=== PATIENT | male | born 1945 | race Caucasian/White ===

== ENCOUNTER 2018-06-26 09:33 | Emergency (ER) | payer MEDICARE ==
[~2018-06-26] VITALS: Ht 180.3 cm; Wt 65.8 kg
[~2018-06-26 09:33] MED LIST: CIPRO500 MG PO; EYE DROPS15 M1; NORCO 7.5-3251 EACH PO
[2018-06-26] MEDS ORDERED: LIDOCAINE JELLY 2% 10ML URO-JET ONE (10:45)
[2018-06-26] MEDS ORDERED: LIDOCAINE JELLY 2% 10ML URO-JET TOP ONE (11:00)
--- NOTE | 2018-06-26 11:02 | NUR ---
Verbal report given to Frannie, 11 to 11 nurse.
[2018-06-26 11:18] LABS: BILIRUBIN,URINE NEGATIVE (NEGATIVE); CLARITY,URINE CLEAR (CLEAR); COLOR,URINE YELLOW (YELLOW); KETONES,URINE NEGATIVE (NEGATIVE); LEUKOCYTE ESTERASE ,URINE NEGATIVE (NEGATIVE); NITRITE,URINE NEGATIVE (NEGATIVE); PROTEIN,URINE DIPSTICK NEGATIVE (NEGATIVE); URINE UROBILINOGEN 0.2 mg/dL (0.2 - 1)
[2018-06-26] MEDS ORDERED: SODIUM CHLORIDE 0.9% 1000ML 1,000 ML ONE (11:24)
--- NOTE | 2018-06-26 11:25 | NUR ---
WARD CLAMPED AT THIS TIME-800CC OF URINE OUT
[2018-06-26] MEDS ORDERED: SODIUM CHLORIDE 0.9% 1000ML 1,000 ML IV SCH (11:30)
[2018-06-26 11:35] LABS: BACTERIA,URINE FEW /HPF; EPITHELIAL CELLS,URINE RARE /LPF; RBC,URINE >50 /HPF (0-5)
[2018-06-26] MEDS ORDERED: CEFTRIAXONE SOD 1 GM/NS 50 ML 50 ML IV ONE (12:15)
== END 2018-06-26 13:54 | disposition home or self-care (01) ==
LOC: ER 09:33
DX: N30.91 Cystitis, unspecified with hematuria (principal); N13.9 Obstructive and reflux uropathy, unspecified; I48.91 Unspecified atrial fibrillation
CPT/HCPCS: 51700; 81001; 87086; 99284; J0696; J7030

== ENCOUNTER 2018-07-25 03:01 | Inpatient (IN) | payer MEDICARE ==
[2018-07-25] VITALS (8 sets, daily range): BP systolic 82–124; BP diastolic 50–57
[~2018-07-25] VITALS: Ht 170.2 cm; Wt 57.3 kg
[2018-07-25] MEDS ORDERED: SODIUM CHLORIDE 0.9% 1000ML 1,000 ML IV STA (03:03)
[2018-07-25] MEDS ORDERED: ACETAMINOPHEN 1000 MG/100 ML IV STA (03:10)
[2018-07-25] MEDS ORDERED: SODIUM CHLORIDE 0.9% 1000ML 1,000 ML IV ONE (03:15)
[2018-07-25] MEDS ORDERED: ACETAMINOPHEN 325 MG TAB PO ONE (03:15)
[2018-07-25] MEDS ORDERED: ALBUTEROL/IPRATROPIUM 3 ML NEB NEB ONE (03:15)
[2018-07-25] MEDS ORDERED: CEFTRIAXONE SOD 1 GM/NS 50 ML 50 ML IV ONE (03:15)
[2018-07-25] MEDS ORDERED: MEROPENEM 1GM 100 ML IV STA (03:20)
--- NOTE | 2018-07-25 03:21 | NUR ---
RAD AT BS FOR CHEST XRAY PER MD ORDERS
[2018-07-25 03:24] LABS: BASOPHILS # (AUTO) 0.1 (0.0-0.1); BASOPHILS % 0.3 % (0.0-1.0); EOSINOPHILS # (AUTO) 0.1 (0.0-0.4); EOSINOPHILS % 0.3 % (0.0-6.0); HEMATOCRIT 35.1 % (38.2-49.6); LYMPHOCYTES # (AUTO) 0.8 (1.0-3.2); MEAN CORPUSCULAR HEMOGLOBIN 32.7 pg (28-32); MEAN CORPUSCULAR HGB CONC 34.2 g/dL (31-35); MEAN CORPUSCULAR VOLUME 95.6 fL (81-99); MONOCYTES # (AUTO) 1.2 (0.2-0.8); MONOCYTES % 6.3 % (4.4-11.3); NEUTROPHILS # (AUTO) 16.9 (2.1-6.9); NEUTROPHILS % 88.7 % (38.7-80.0); PLATELET COUNT 162 x10e3/uL (140-360); RED BLOOD COUNT 3.67 x10e6/uL (4.3-5.7); RED CELL DISTRIBUTION WIDTH 13.2 % (11.7-14.4)
[2018-07-25] MEDS ORDERED: MEROPENEM 1GM 100 ML IV ONE (03:25)
[2018-07-25 03:37] LABS: INR 1.01; PARTIAL THROMBOPLASTIN TIME 31.8 seconds (23.8-35.5); PROTHROMBIN TIME 13.8 seconds (11.9-14.5)
[2018-07-25 03:44] LABS: ALANINE AMINOTRANSFERASE 10 IU/L (0-55); ALBUMIN 2.6 g/dL (3.5-5.0); ALBUMIN/GLOBULIN RATIO 0.7 (0.8-2.0); ANION GAP 9.8 mmol/L (8-16); BLOOD UREA NITROGEN 13 mg/dL (7-26); BUN/CREATININE RATIO 15 (6-25); CALCIUM 8.7 mg/dL (8.4-10.2); CARBON DIOXIDE 26 mmol/L (22-29); CHLORIDE 104 mmol/L (98-107); CREATINE KINASE 39 IU/L (30-200); CREATININE, SERUM 0.84 mg/dL (0.72-1.25); EST GLOMERULAR FILTRATION RATE > 60 ML/MIN (60-); GLUCOSE 103 mg/dL (74-118); POTASSIUM 3.8 mmol/L (3.5-5.1); SODIUM 136 mmol/L (136-145)
--- NOTE | 2018-07-25 03:46 | Diagnostic Imaging Report ---
Examination: Single AP view of the chest. COMPARISON: 11/13/13 INDICATION: cough DISCUSSION: Lines/tubes: None. Lungs: The lungs are well inflated and clear. No pneumonia or pulmonary edema. Pleura: No pleural effusion or pneumothorax. Heart and mediastinum: The heart and the mediastinum are unremarkable. Bones and soft tissues: No acute bony abnormalities. IMPRESSION: 1. No acute cardiopulmonary abnormalities. Signed by: Dr. Jayesh Jane M.D. on 07/25/2018 3:43 AM
[2018-07-25 03:53] LABS: CLARITY,URINE CLOUDY (CLEAR); COLOR,URINE YELLOW (YELLOW)
[2018-07-25 03:54] LABS: BILIRUBIN,URINE NEGATIVE (NEGATIVE); KETONES,URINE NEGATIVE (NEGATIVE); LEUKOCYTE ESTERASE ,URINE 2+ (NEGATIVE); NITRITE,URINE POSITIVE (NEGATIVE); PROTEIN,URINE DIPSTICK 1+ (NEGATIVE); URINE UROBILINOGEN 0.2 mg/dL (0.2 - 1)
[2018-07-25 04:00] LABS: ALKALINE PHOSPHATASE 85 IU/L (40-150)
[2018-07-25 04:02] LABS: BACTERIA,URINE MANY /HPF; EPITHELIAL CELLS,URINE FEW /LPF; WBC,URINE (MAN) >50 /HPF (0-5)
[2018-07-25] MEDS: OSELTAMIVIR PHOSPHATE 75 MG CAP PO SCH ×3 (04:11→16:48)
[2018-07-25] MEDS: SODIUM CHLORIDE 0.9% 1000ML 1,000 ML IV SCH ×4 (04:11→22:20)
[2018-07-25] MEDS ORDERED: FLOMAX0.4 MG PO (04:12)
--- OUTSIDE RECORDS SUMMARY | 2018-07-25 04:29 | XMS REPORT ---
Author Author [facility] Address Unknown Phone Unavailable Care Team Providers Care Geospatial Developer Name Role Phone Irma JIMENEZ Unavailable Unavailable Problems This patient has no known problems. Allergies, Adverse Reactions, Alerts This patient has no known allergies or adverse reactions. Medications This patient has no known medications. Results Test Description Test Time Test Comments Text Results Atomic Results Result Comments CHEST SINGLE (PORTABLE) 2018-07-25 03:36:00 [place] [address] Patient Name: PEPITO LEIGH MR #: [id number] : 1945 Age/Sex: 72/M Req #: [id number] Adm Physician: Ordered by: NATHAN JIMENEZ MD Report #: [id number] Location: ER Room/Bed: Procedure: [id number] DX/CHEST SINGLE (PORTABLE) Exam Date: 07/25/18 Exam Time: 0315 REPORT STATUS: Signed Examination: Single AP view of the chest. COMPARISON: 11/13/13 INDICATION: cough DISCUSSION: Lines/tubes: None. Lungs: The lungs are well inflated and clear. No pneumonia or pulmonary edema. Pleura: No pleural effusion or pneumothorax. Heart and mediastinum: The heart and the mediastinum are unremarkable. Bones and soft tissues: No acute bony abnormalities. IMPRESSION: 1. No acute cardiopulmonary abnormalities. Signed by: Dr. Marcia Yates M.D. on 07/25/2018 3:43 AM Dictated By: MARCIA YATES MD 2 Transcribed By: DEE on 07/25/18342 COPY TO: NATHAN JIMENEZ MD
[2018-07-25] MEDS ORDERED: ONDANSETRON HCL INJ 2MG/ML 2ML 2 MG/ML VIAL IV PRN (04:30)
[2018-07-25] MEDS ORDERED: ACETAMINOPHEN 325 MG TAB PO PRN (04:30)
--- NOTE | 2018-07-25 05:49 | NUR ---
received pt from ER to room 204, AAOx3, no resp distress, no complaints of pain or discomfort, on O2 at 2L, on droplet precautions for Flu B, 18F mai in place draining dark yellow clear urine, able to verbalize needs, bed in lowest and locked position with call light in reach, family at bedside
[2018-07-25] MEDS: MEROPENEM 500MG 500 MG in SODIUM CHLORIDE 0.9% 50ML 50 ML IV SCH ×2 (06:00→13:46)
[2018-07-25] MEDS: ALBUTEROL/IPRATROPIUM 3 ML NEB NEB SCH ×3 (07:00→19:42)
[2018-07-25] MEDS ORDERED: ALBUTEROL/IPRATROPIUM 3 ML NEB NEB SCH (07:00)
[2018-07-25] MEDS: TAMSULOSIN HCL 0.4 MG CAP PO SCH (08:52)
[2018-07-25] MEDS ORDERED: MEROPENEM 500MG/ NS 50ML 50 ML IV SCH (14:00)
--- NOTE | 2018-07-25 19:00 | NUR ---
Patient visited in room during nursing rounds. Patient alert and oriented x3. No distress or discomfort noted. Pt positive for flu and is on droplet isolation at this time. Patient ambulatory in room prn. Receiving IVF (NS @ 150 ml/hr). Forman in place draining dark and clear yellow urine. Call buitrago within reach. Will monitor closely.
[2018-07-25] MEDS: MEROPENEM 500MG/ NS 50ML 50 ML IV SCH (22:20)
[2018-07-26] VITALS (9 sets, daily range): BP systolic 99–111; BP diastolic 52–60
[2018-07-26] MEDS: ALBUTEROL/IPRATROPIUM 3 ML NEB NEB SCH ×3 (01:02→13:00)
--- NOTE | 2018-07-26 04:26 | NUR ---
Dr. Harris came and visited pt in room during rounds. MD aware of patient condition. No new orders given.
[2018-07-26] MEDS: SODIUM CHLORIDE 0.9% 1000ML 1,000 ML IV SCH ×3 (05:37→21:02)
[2018-07-26] MEDS: MEROPENEM 500MG/ NS 50ML 50 ML IV SCH ×3 (05:37→22:00)
--- NOTE | 2018-07-26 06:35 | NUR ---
Patient resting in bed. Pt in stable condition. Will hand off to dayshift RN pt care.
[2018-07-26 06:53] LABS: BASOPHILS # (AUTO) 0.1 (0.0-0.1); BASOPHILS % 0.5 % (0.0-1.0); EOSINOPHILS # (AUTO) 0.1 (0.0-0.4); EOSINOPHILS % 0.3 % (0.0-6.0); HEMATOCRIT 29.6 % (38.2-49.6); HEMOGLOBIN 9.8 g/dL (14.0-18.0); LYMPHOCYTES # (AUTO) 1.4 (1.0-3.2); LYMPHOCYTES % 9.9 % (18.0-39.1); MEAN CORPUSCULAR HEMOGLOBIN 32.6 pg (28-32); MEAN CORPUSCULAR HGB CONC 33.1 g/dL (31-35); MEAN CORPUSCULAR VOLUME 98.3 fL (81-99); MONOCYTES # (AUTO) 1.9 (0.2-0.8); MONOCYTES % 13.4 % (4.4-11.3); NEUTROPHILS # (AUTO) 10.8 (2.1-6.9); NEUTROPHILS % 75.3 % (38.7-80.0); PLATELET COUNT 135 x10e3/uL (140-360); RED BLOOD COUNT 3.01 x10e6/uL (4.3-5.7); RED CELL DISTRIBUTION WIDTH 13.6 % (11.7-14.4)
[2018-07-26 07:21] LABS: ALANINE AMINOTRANSFERASE 10 IU/L (0-55); ALBUMIN/GLOBULIN RATIO 0.7 (0.8-2.0); ALKALINE PHOSPHATASE 72 IU/L (40-150); BLOOD UREA NITROGEN 10 mg/dL (7-26); BUN/CREATININE RATIO 13 (6-25); CARBON DIOXIDE 23 mmol/L (22-29); CHLORIDE 111 mmol/L (98-107); EST GLOMERULAR FILTRATION RATE > 60 ML/MIN (60-); GLUCOSE 81 mg/dL (74-118); SODIUM 139 mmol/L (136-145)
[2018-07-26] MEDS: OSELTAMIVIR PHOSPHATE 75 MG CAP PO SCH ×2 (08:47→17:06)
[2018-07-26] MEDS: TAMSULOSIN HCL 0.4 MG CAP PO SCH (08:47)
[2018-07-26] MEDS ORDERED: ONDANSETRON HCL 4 MG ORAL DISINTEGRATING TAB PO PRN (10:00)
[2018-07-26 14:03] LABS: PLATELET ESTIMATE SLIGHTLY DECREASED; PLATELET MORPHOLOGY COMMENT FEW LARGE; RBC MORPHOLOGY COMMENT NORMAL
[2018-07-26 14:04] LABS: ANISOCYTOSIS SLIGHT; HYPOCHROMASIA SLIGHT
--- NOTE | 2018-07-26 16:48 | NUR ---
IMM SIGNED BY PT, EXPLAINED TO PT AND PLACED IN CHART COPY TO PT IN CARE TRANSITIONS FOLDER
--- NOTE | 2018-07-26 19:24 | NUR ---
Patient received lying in bed. AAO x 3. Patient had no complaints of pain. Respirations even and non-labored. 2L NC in place. Forman catheter draining clear pale yellow urine. Fall precautions implemented. Patient instructed to call for assistance when needed. Call light within reach.
--- NOTE | 2018-07-26 23:43 | NUR ---
Patient complained of being unable to sleep. Dr. Harris notified. New order received.
[2018-07-27] MEDS: ALBUTEROL/IPRATROPIUM 3 ML NEB NEB SCH ×4 (00:45→19:39)
[2018-07-27] MEDS: SODIUM CHLORIDE 0.9% 1000ML 1,000 ML IV SCH (02:25)
[2018-07-27] MEDS: MEROPENEM 500MG/ NS 50ML 50 ML IV SCH ×3 (05:42→21:19)
[2018-07-27 06:00] VITALS: BP 124/66
--- NOTE | 2018-07-27 06:55 | NUR ---
Walking rounds done. Shift report given to oncoming nurse.
[2018-07-27 07:58] VITALS: BP 127/71
--- NOTE | 2018-07-27 08:16 | NUR ---
Patient complaining of shortness of breath. Decreased rate of fluids. Post breathing treatment. Heart rate in the 120's. O2 saturation is 95%. Calling Dr. Lopez for orders. Orders received and implemented.
--- NOTE | 2018-07-27 08:56 | Progress Note ---
DATE: SUBJECTIVE: The patient is here for type B influenza, sepsis. The patient is currently still short of breath, is on 2 L of oxygen and still short of breath on ambulation. The patient has been running low-grade temperature throughout the stay in the hospital. OBJECTIVE: VITAL SIGNS: Temperature is 98.8, blood pressure is 124/66, pulse of 89, pulse oximetry of 95% on 2 L of oxygen. The patient's T-max is 99.3. HEENT: Normocephalic, atraumatic. Pupils are reactive to light and accommodation. CVS: S1, S2. Regular rate and rhythm. LUNGS: Positive for rhonchi bilaterally. ABDOMEN: Nontender, nondistended. EXTREMITIES: No clubbing, no cyanosis, no edema. LABORATORY VALUES: Yesterday's sodium was 139, BUN 10, creatinine 0.80. Hematology; white count is down yesterday to 14,000 from 19,000, hemoglobin of 9.8 and hematocrit 29.6. Coags were normal. Urine was showing positive nitrites and urine leukocyte esterase. Serology, positive for flu. MICROBIOLOGY: Enterococcus identified and susceptibility to follow. MEDICATIONS: The patient's medications include Merrem, sodium chloride. He is on Tamiflu twice a day, tamsulosin and zolpidem for sleep. ASSESSMENT: 1. Sepsis secondary to flu. 2. Urinary tract infection and urosepsis. 3. Hypertension. 4. BPH. 5. Acute renal failure. PLAN: The patient is progressing well. Continue to monitor the patient, asked to ambulate and DVT prophylaxis with SCDs. Further recommendation per clinical course. We will continue to monitor the patient. Albuterol and Atrovent for respiratory support has been given to the patient. The patient in addition has a diagnosis of COPD, which was present on admission. MD MATTY Correia/GREGORY /[id number]
[2018-07-27] MEDS ORDERED: FUROSEMIDE INJ 10 MG/ML 2 ML VIAL IV ONE (09:00)
[2018-07-27 09:24] VITALS: BP 127/71
[2018-07-27] MEDS: OSELTAMIVIR PHOSPHATE 75 MG CAP PO SCH ×2 (09:24→16:58)
[2018-07-27] MEDS: TAMSULOSIN HCL 0.4 MG CAP PO SCH (09:24)
[2018-07-27] MEDS: FAMOTIDINE 20 MG TAB PO SCH ×2 (09:24→16:58)
--- NOTE | 2018-07-27 09:45 | Diagnostic Imaging Report ---
EXAMINATION: CHEST SINGLE (PORTABLE) INDICATION: ^Increased SOB COMPARISON: Chest x-ray 07/25/2017. 11/13/2013. FINDINGS: AP view TUBES and LINES: None. LUNGS: Lungs are hyper inflated. Airspace opacities in both lung bases. There is perihilar interstitial opacities, consistent with interstitial edema. PLEURA: Tiny bilateral pleural effusions. HEART AND MEDIASTINUM: The cardiomediastinal silhouette is unremarkable. BONES AND SOFT TISSUES: No acute osseous lesion. Soft tissues are unremarkable. UPPER ABDOMEN: No free air under the diaphragm. IMPRESSION: Interstitial edema. Bibasilar airspace opacities, which may represent combination of edema and pneumonia. Signed by: Dr. Trever Plata M.D. on 07/27/2018 9:41 AM
--- NOTE | 2018-07-27 10:29 | NUR ---
D-Dimer at 3.56. Notified Dr. Lopez. CT chest with contrast ordered.
--- NOTE | 2018-07-27 11:31 | Diagnostic Imaging Report ---
EXAM: CT Chest WITH contrast (PE protocol) 07/27/2018 10:25 AM INDICATION: Fever. Elevated d-dimer. Shortness of breath. ^PE protocol COMPARISON: Chest x-ray 07/27/2018. 07/25/2018. TECHNIQUE: Chest was scanned utilizing a multidetector helical scanner from the lung apex through the level of the adrenal glands without administration of IV contrast. Coronal and sagittal reformations were obtained. PE protocol was performed. Sagittal and coronal thick MIP reconstruction images were performed by the technologist at the scanner workstation. IV CONTRAST: 100 mL of Isovue 370 COMPLICATIONS: None RADIATION DOSE: Total DLP: 431.41 mGy*cm Estimated effective dose: (DLP x 0.014 x size factor) mSv CTDIvol has been reviewed. It is below the limits set by the Radiation Protocol Committee (RPC). Dose modulation, iterative reconstruction, and/or weight based adjustment of the mA/kV was utilized to reduce the radiation dose to as low as reasonably achievable. FINDINGS: LINES/ TUBES: None. LUNGS AND AIRWAYS: Severe centrilobular and paraseptal emphysematous changes with apical predominance. Mild bilateral lower lobe atelectasis. Good contrast bolus timing. No pulmonary emboli. PLEURA: Small bilateral simple appearing pleural effusions, right greater than left. HEART AND MEDIASTINUM: The thyroid gland is normal. No mediastinal, hilar or axillary lymphadenopathy. The heart is normal in size. There is no pericardial effusion. Main pulmonary artery measures 2.8 cm. Ascending aorta measures 3.0 cm. UPPER ABDOMEN: Unremarkable. BONES: The visualized bony thorax is within normal limits. SOFT TISSUES: Unremarkable. IMPRESSION: 1. No pulmonary emboli. 2. Severe emphysema. 3. Small bilateral pleural effusions with associated atelectasis. Previous interstitial edema seen on chest x-ray has slightly improved. Signed by: Dr. Trever Plata M.D. on 07/27/2018 11:27 AM
[2018-07-27 11:57] VITALS: BP 122/57
--- NOTE | 2018-07-27 15:21 | NUR ---
SW met with patient regarding MD consult for SNF / LTAC. Patient was not aware of MD recommendations and would like to speak with doctor about aftercare options with his son present. SW continued to explain why it was recommended and provided him with a list of choices and ALOC to select if he agrees to MD recommendation. Patient will decide after MD discuss current condition and treatment needs with him. Patient resides at home with his son who is his main support system. Patient states he was independent of all ADL prior to hospital admission. Patient did not require assistance in his care or mobility.Patient's PCP is MD Harris. Patient is currently taking medication that will end within 30 otherwise he does not take medication. CM to follow up patient's aftercare decision.
[2018-07-27 15:24] LABS: CREATINE KINASE MB 1.2 ng/mL (0-5.0)
[2018-07-27 16:34] VITALS: BP 102/58
[2018-07-27] MEDS ORDERED: IOPAMIDOL 370 MG/ML 200 ML INFUS..BTL INJ ONE (18:12)
[2018-07-27] MEDS ORDERED: SODIUM CHLORIDE 0.9% 50ML 50 ML ONE (18:12)
[2018-07-27 20:00] VITALS: BP 102/66
[2018-07-27] MEDS: ZOLPIDEM TARTRATE 5 MG TAB PO PRN (21:43)
[2018-07-27 23:13] LABS: CREATINE KINASE MB 1.2 ng/mL (0-5.0)
[2018-07-28] VITALS (8 sets, daily range): BP systolic 103–134; BP diastolic 55–84
[2018-07-28] MEDS: ALBUTEROL/IPRATROPIUM 3 ML NEB NEB SCH ×4 (00:45→19:22)
[2018-07-28 04:56] LABS: BASOPHILS # (AUTO) 0.1 (0.0-0.1); BASOPHILS % 0.5 % (0.0-1.0); EOSINOPHILS # (AUTO) 0.3 (0.0-0.4); EOSINOPHILS % 2.5 % (0.0-6.0); HEMATOCRIT 31.9 % (38.2-49.6); HEMOGLOBIN 10.7 g/dL (14.0-18.0); LYMPHOCYTES # (AUTO) 1.4 (1.0-3.2); LYMPHOCYTES % 13.2 % (18.0-39.1); MEAN CORPUSCULAR HEMOGLOBIN 31.8 pg (28-32); MEAN CORPUSCULAR HGB CONC 33.5 g/dL (31-35); MEAN CORPUSCULAR VOLUME 94.7 fL (81-99); MONOCYTES # (AUTO) 1.6 (0.2-0.8); MONOCYTES % 14.9 % (4.4-11.3); NEUTROPHILS # (AUTO) 7.5 (2.1-6.9); NEUTROPHILS % 68.3 % (38.7-80.0); PLATELET COUNT 141 x10e3/uL (140-360); RED BLOOD COUNT 3.37 x10e6/uL (4.3-5.7)
[2018-07-28 05:14] LABS: ANION GAP 9.2 mmol/L (8-16); BLOOD UREA NITROGEN 5 mg/dL (7-26); BUN/CREATININE RATIO 7 (6-25); CALCIUM 8.4 mg/dL (8.4-10.2); CARBON DIOXIDE 29 mmol/L (22-29); CHLORIDE 106 mmol/L (98-107); CREATININE, SERUM 0.73 mg/dL (0.72-1.25); EST GLOMERULAR FILTRATION RATE > 60 ML/MIN (60-); GLUCOSE 97 mg/dL (74-118); POTASSIUM 3.2 mmol/L (3.5-5.1); SODIUM 141 mmol/L (136-145)
[2018-07-28] MEDS: MEROPENEM 500MG/ NS 50ML 50 ML IV SCH ×3 (05:31→21:56)
[2018-07-28 05:34] LABS: CREATINE KINASE 83 IU/L (30-200)
--- NOTE | 2018-07-28 06:55 | NUR ---
report given to day nurse. patient is resting comfortably in bed. bed is in lowest position and call buitrago is within reach.
[2018-07-28] MEDS: OSELTAMIVIR PHOSPHATE 75 MG CAP PO SCH ×2 (08:56→17:25)
[2018-07-28] MEDS: FAMOTIDINE 20 MG TAB PO SCH ×2 (08:56→17:25)
[2018-07-28] MEDS: TAMSULOSIN HCL 0.4 MG CAP PO SCH (08:56)
[2018-07-28] MEDS ORDERED: POTASSIUM CHLORIDE 20 MEQ TAB CR PO ONE (09:00)
--- NOTE | 2018-07-28 11:37 | Progress Note ---
DATE: 07/28/2018 SUBJECTIVE: The patient is here for viral pneumonia. The patient yesterday had an episode of acute shortness of breath. A D-dimer was done. Troponins were done. The patient was given Lasix and also diuresed. The patient also had a CT scan, which was documented as negative for pulmonary embolism. The patient is currently on Merrem, on tamsulosin, and also on Tamiflu. The patient's microbiology did grow out ESBL. OBJECTIVE: VITAL SIGNS: Temperature is 97.0, pulse of 77, respirations of 18, blood pressure is 104/64, pulse oximetry of 100% on room air. HEENT: Normocephalic, atraumatic. Pupils are reactive to light and accommodation. LUNGS: Positive for rhonchi bilaterally. ABDOMEN: Nontender, nondistended. EXTREMITIES: No clubbing, no cyanosis, no edema. The patient has an SCD at this time. LABORATORY VALUES: White count is 10.90 down from 14, hemoglobin of 10.7, hematocrit of 31.9. Chemistry; sodium of 141, potassium of 3.2, BUN of 5, creatinine of 0.73 with EGFR above 70. Coags are normal. Urine has been positive. Microbiology grew out ESBL positive and sensitive to Merrem. Blood cultures so far negative. IMAGING STUDIES: Last CT done yesterday shows no pulmonary emboli, severe emphysema, small bilateral pleural effusion associated with atelectasis, previous interstitial edema has improved. ASSESSMENT: 1. Pneumonia secondary to influenza. 2. Extended-spectrum beta-lactamase. 3. Chronic obstructive pulmonary disease. 4. Chronic obstructive pulmonary disease exacerbation. 5. Malnutrition. 6. Benign prostatic hypertrophy. PLAN: Plan is to continue on Merrem at this time. The patient will continue on Tamiflu at this time too. Continue with O2 supplementation. The patient is debilitated and will need physical therapy to evaluate for possible SNF and/or LTAC placement. We will continue the Merrem at this time. Further recommendation and clinical course, we will continue to monitor the patient and a PT consult will be added to the patient. MD MATTY Correia/YULISAL /[id number]
--- NOTE | 2018-07-28 21:20 | NUR ---
Patient received lying in bed. AAO x 4. Patient had no complaints of pain. Respirations even and non-labored. 2L NC in place. Forman catheter draining pale yellow urine. . Call light within reach.
[2018-07-28] MEDS: ZOLPIDEM TARTRATE 5 MG TAB PO PRN (21:56)
[2018-07-29] VITALS (8 sets, daily range): BP systolic 103–136; BP diastolic 57–72
[2018-07-29] MEDS: ALBUTEROL/IPRATROPIUM 3 ML NEB NEB SCH ×4 (00:50→19:35)
[2018-07-29 05:06] LABS: BASOPHILS # (AUTO) 0.1 (0.0-0.1); BASOPHILS % 0.5 % (0.0-1.0); EOSINOPHILS # (AUTO) 0.3 (0.0-0.4); EOSINOPHILS % 3.2 % (0.0-6.0); HEMATOCRIT 31.2 % (38.2-49.6); HEMOGLOBIN 10.7 g/dL (14.0-18.0); LYMPHOCYTES # (AUTO) 1.6 (1.0-3.2); LYMPHOCYTES % 15.2 % (18.0-39.1); MEAN CORPUSCULAR HGB CONC 34.3 g/dL (31-35); MEAN CORPUSCULAR VOLUME 93.4 fL (81-99); MONOCYTES # (AUTO) 1.5 (0.2-0.8); MONOCYTES % 14.4 % (4.4-11.3); NEUTROPHILS # (AUTO) 6.7 (2.1-6.9); PLATELET COUNT 155 x10e3/uL (140-360); RED BLOOD COUNT 3.34 x10e6/uL (4.3-5.7); RED CELL DISTRIBUTION WIDTH 13.1 % (11.7-14.4)
[2018-07-29 05:27] LABS: ANION GAP 9.3 mmol/L (8-16); BLOOD UREA NITROGEN 6 mg/dL (7-26); BUN/CREATININE RATIO 9 (6-25); CALCIUM 8.4 mg/dL (8.4-10.2); CARBON DIOXIDE 28 mmol/L (22-29); CHLORIDE 106 mmol/L (98-107); CREATININE, SERUM 0.69 mg/dL (0.72-1.25); EST GLOMERULAR FILTRATION RATE > 60 ML/MIN (60-); GLUCOSE 94 mg/dL (74-118); POTASSIUM 3.3 mmol/L (3.5-5.1); SODIUM 140 mmol/L (136-145)
[2018-07-29] MEDS: MEROPENEM 500MG/ NS 50ML 50 ML IV SCH ×3 (05:37→22:55)
--- NOTE | 2018-07-29 06:55 | NUR ---
Walking rounds done. Shift report given to oncoming nurse about patient's status.
--- NOTE | 2018-07-29 07:30 | NUR ---
REC'D PT AAOX3 ON HIGH-PARDO'S POSITION, PT ON RA, AND DROPLET/CONTACT PRECAUTION. WARD IN PLACE. NO S/S OF DISTRESS. BED IN LOWEST POSITION, SIDE RAILS UP X2, AND CALL MANSFIELD WITHIN REACH.
[2018-07-29] MEDS: TAMSULOSIN HCL 0.4 MG CAP PO SCH (08:30)
[2018-07-29] MEDS: FAMOTIDINE 20 MG TAB PO SCH ×2 (08:30→15:49)
[2018-07-29] MEDS: OSELTAMIVIR PHOSPHATE 75 MG CAP PO SCH ×2 (08:30→16:42)
--- NOTE | 2018-07-29 10:47 | NUR ---
IMM letter delivered and explained to pt. He verbalized understanding. Signed copy placed in chart. Copy to pt's transition of care folder.
--- NOTE | 2018-07-29 18:00 | NUR ---
PT IS AWAKE WITH NO S/S OF DISTRESS. FAMILY MEMBER AT BEDSIDE. BED IN LOWEST POSITION, CALL MANSFIELD WITHIN REACH, SIDE RAILS UPX2.
[2018-07-29] MEDS: ZOLPIDEM TARTRATE 5 MG TAB PO PRN (20:37)
--- NOTE | 2018-07-29 20:40 | NUR ---
NON PRODUCTIVE COUGH NOTED, PATIENT DENIES SHORTNESS OF BREATH OR CHEST PAIN. HEAD OF BED ELEVATED, PATIENT'S BACK RUBBED FOR COMFORT. HE WAS MEDICATED WITH AMBIEN FOR SLEEP PER HIS REQUEST. CALL LIGHT WITHIN EASY REACH, HE'S INSTRUCTED TO CALL FOR ASSISTANCE NEEDED.
--- NOTE | 2018-07-29 23:00 | Progress Note ---
DATE: SUBJECTIVE: The patient is here for pneumonia and history of sepsis secondary to influenza pneumonia. The patient is currently feeling better. LTAC and/SNF order has been placed. OBJECTIVE: VITAL SIGNS: Temperature is 97.7, pulse of 104, respirations of 19, and blood pressure is 136/70. HEENT: Normocephalic, atraumatic. Pupils are reactive to light and accommodation. CVS: S1 and S2 regular. Distant heart sounds. Positive for rhonchi bilaterally. ABDOMEN: Nontender and nondistended. EXTREMITIES: No clubbing, no cyanosis, no edema. SCDs in place. LABORATORY VALUES: The patient's white count is 10,000, today come down from 10.90, hemoglobin of 10.7, and hematocrit of 31.2. Chemistries; sodium 140 and potassium is 3.3. Serology as mentioned positive flu. ASSESSMENT AND PLAN: 1. The patient has pneumonia secondary to influenza. 2. Chronic obstructive pulmonary disorder. 3. Malnutrition. 4. Benign prostatic hypertension. 5. Debility. The patient's plan is to continue on Merrem. Continue on Tamiflu. The patient has SNF ordered. We will continue to monitor the patient. Further recommendation and clinical course. MD MATTY Correia/YULISAL /[id number]
[2018-07-30] VITALS (7 sets, daily range): BP systolic 103–115; BP diastolic 58–66
[2018-07-30] MEDS: ALBUTEROL/IPRATROPIUM 3 ML NEB NEB SCH ×4 (00:57→19:25)
--- NOTE | 2018-07-30 01:22 | NUR ---
PATIENT IS ASLEEP, HE'S EASY TO AROUSE. NO PAIN VOICED, HE DENIES ANY RESPIRATORY DISTRESS. CALL LIGHT WITHIN EASY REACH, HE'S INSTRUCTED TO CALL FOR ASSISTANCE NEEDED.
--- NOTE | 2018-07-30 04:21 | NUR ---
PATIENT IS ASLEEP, HE'S EASY TO AROUSE. NO RESPIRATORY DISTRESS OBSERVED, HE DENIES PAIN.
[2018-07-30] MEDS: MEROPENEM 500MG/ NS 50ML 50 ML IV SCH ×3 (06:34→23:50)
--- NOTE | 2018-07-30 07:30 | NUR ---
REC'D PT AAOX3, ON O2 AT 3L/MIN VIA NC. NO S/S OF DISTRESS. NO COMPLAIN OF PAIN. BED IN LOWEST POSITION, SIDE RAILS UP 2X, AND CALL MANSFIELD WITHIN REACH.
[2018-07-30] MEDS: FAMOTIDINE 20 MG TAB PO SCH ×2 (08:20→17:44)
[2018-07-30] MEDS: TAMSULOSIN HCL 0.4 MG CAP PO SCH (08:21)
--- NOTE | 2018-07-30 08:59 | NUR ---
PER PT NOTE, PATIENT WALKING 200 FT IN ROOM STEADY WITH MOD ASSIST. PATIENT CLEARED FROM PT SERVICES. PATIENT ON 1 IV ABX. [employer] MANUFACTURING TECH ACUTE CARE PLACEMENT AND DETENTION FACILITY PLACEMENT IS INAPPROPRIATE FOR PATIENT. NOTIFIED. TRIED TO LEAVE DR. MCADAMS A VOICEMAIL. VOICEMAIL SAYS ALL CIRCUITS ARE BUSY. BEDSIDE NURSE ELIAN ASKED TO FOLLOW UP AND RECEIVE BACK UP PLAN OF CARE. ELIAN VERBALLY AGREED. PENDING ORDER FOR NEW DISCHARGE PLAN.
--- NOTE | 2018-07-30 18:10 | NUR ---
AX RUNNING FOR THE PATIENT. FAMILY MEMBERS AT THE BEDSIDE. NC RUNNING AT 3L/MIN. BED IN LOWEST POSITION, SIDE RAILS UP X2, AND CALL MANSFIELD WITHIN REACH.
[2018-07-30] MEDS ORDERED: POTASSIUM CHLORIDE 20 MEQ TAB CR PO ONE (19:59)
--- NOTE | 2018-07-30 19:59 | NUR ---
SPOKE WITH DR MCADAMS REGARDING THE PATIENT LOW POTASSIUM RESULT TODAY, NEW ORDER RECEIVED.
--- NOTE | 2018-07-30 21:09 | NUR ---
PATIENT AMBULATED IN THE [place] WITHOUT THE OXYGEN WITH PRIMARY NURSE AT HIS SIDE. OXYGEN SATURATION ASSESSED PRIOR TO AMBULATING, HIS SATURATION WAS 84-85% AND HE C/O SHORTNESS OF BREATH. HE'S NOW SITTING AT THE SIDE OF BED WITH OXYGEN APPLIED @2L/NC AND HIS SATURATION NOW IS 93%. CALL LIGHT WITHIN EASY REACH, HE'S INSTRUCTED TO CALL FOR ASSISTANCE NEEDED.
[2018-07-30] MEDS: ZOLPIDEM TARTRATE 5 MG TAB PO PRN (21:20)
--- NOTE | 2018-07-30 22:35 | Progress Note ---
DATE: SUBJECTIVE: A 72-year-old gentleman comes in with influenza. The patient is currently asymptomatic, but still complains of shortness of breath and short distance ambulation. OBJECTIVE: VITAL SIGNS: Currently, the patient's vital signs temperature is 96.9, pulse of 86, respirations of 18, blood pressure is 103/66, pulse oximeter 97%. HEENT: Normocephalic, atraumatic. Pupils are reactive to light and accommodation. LUNGS: Decreased air entry into all lung quinteros. No rhonchi noted. ABDOMEN: Nontender, nondistended. EXTREMITIES: No clubbing, no cyanosis, no edema. LABORATORY VALUES: None done today. The patient's labs have also been noted from 07/29. MICROBIOLOGY: Escherichia coli, enterococcus seen on urine culture. The patient is currently on Merrem for the same. The patient can be switched to oral antibiotic on discharge. ASSESSMENT: 1. Urinary tract infection, ESBL. 2. Influenza pneumonia. 3. Debility. 4. Hypoxia. 5. Chronic obstructive pulmonary disease exacerbation. PLAN: Plan is to do O2 evaluation and home O2 evaluation in the morning and possible discharge depending on the evaluation of home O2. The patient can be discharged home on penicillin-based medication for ESBL. Further recommendation per clinical course. We will continue to monitor the patient here. MD MATTY Correia/MODL /[id number]
--- NOTE | 2018-07-30 23:55 | NUR ---
PATIENT IS SOUNDLY ASLEEP WITHOUT RESPIRATORY DISTRESS, HE'S EASY TO AROUSE. CALL LIGHT WITHIN EASY REACH, HE DENIES SHORTNESS OF BREATH.
[2018-07-31 00:05] VITALS: BP 110/61
[2018-07-31] MEDS: ALBUTEROL/IPRATROPIUM 3 ML NEB NEB SCH ×4 (02:00→15:00)
--- NOTE | 2018-07-31 03:20 | NUR ---
WALKING ROUNDS MADE, PATIENT RECEIVING HIS RESPIRATORY TREATMENT, NO DISTRESS OBSERVED. HE DENIES PAIN, CALL LIGHT WITHIN EASY REACH.
[2018-07-31 04:40] VITALS: BP 102/60
[2018-07-31] MEDS: MEROPENEM 500MG/ NS 50ML 50 ML IV SCH ×2 (06:40→13:45)
[2018-07-31 08:00] VITALS: BP 103/59
--- NOTE | 2018-07-31 08:21 | NUR ---
IMM letter delivered and explained to pt. He verbalized understanding. States he's getting discharged today. Signed copy placed in chart. Copy to pt's transition of care folder.
--- NOTE | 2018-07-31 08:32 | Progress Note ---
DATE: SUBJECTIVE: The patient is here for influenza pneumonia. The patient also has urinary tract infection and has BPH. Currently, the patient is on tamsulosin, zolpidem, albuterol and Atrovent treatment, and also Merrem. PHYSICAL EXAMINATION: VITAL SIGNS: Temperature is 96.9, pulse of 89, respirations of 20, blood pressure is 102/60, and pulse oximetry is 94% on 2 L of oxygen. HEENT: Normocephalic and atraumatic. Pupils are reactive to light and accommodation. CVS: S1 and S2 normal. Regular rate and rhythm. ABDOMEN: Nontender and nondistended. LUNGS: No rhonchi. Decreased air entry into all lung quinteros. EXTREMITIES: No clubbing, no cyanosis, no edema. LABORATORY VALUES: All within normal limits. Chemistries; last potassium is 3.3. Microbiology; the patient has grown ESBL, which is sensitive to Merrem. ASSESSMENT: 1. Influenza pneumonia. Continue with Tamiflu. 2. The patient with ESBL, urinary tract infection. The patient is on Merrem, can be sent home on Macrobid. We will write a prescription for Macrobid. 3. The patient also has a history of benign prostatic hypertrophy with urethral obstruction. The patient to continue with Forman catheter and to be discharged with Forman catheter today. DISPOSITION: Plan to discharge today after a home O2 evaluation and antibiotics will be written. The patient to follow up with primary care physician in about 1 to 2 weeks. MD MATTY Correia/MODL /[id number]
[2018-07-31 10:00] VITALS: BP 103/59
[2018-07-31] MEDS: FAMOTIDINE 20 MG TAB PO SCH ×2 (10:01→17:10)
[2018-07-31] MEDS: TAMSULOSIN HCL 0.4 MG CAP PO SCH (10:01)
[2018-07-31 12:00] VITALS: BP 100/59
--- NOTE | 2018-07-31 13:10 | NUR ---
CM SPOKE TO PATIENT AT BEDSIDE REGARDING HOME O2 ORDER. PATIENT AGREES TO RECEIVE HOME O2 AT HOME. PATIENT GIVEN HOME O2 COMPANIES. PATIENT SIGNED CHOICE FOR [facility]. CLINICAL SENT TO [facility]. PENDING AUTH AND DELIVERY OF HOME O2 TO BEDSIDE FOR DISCHARGE. [facility] Address: [address], [place] [address] [facility] LIAISON: LOV[facility] [phone] FAX: [phone]
[2018-07-31 15:42] VITALS: BP 106/59
--- NOTE | 2018-07-31 16:00 | NUR ---
Notified by caser up that oxygen has been approved , waiting for equipment to be dropped off at hospital.
--- NOTE | 2018-07-31 17:25 | NUR ---
IV removed from left FA with tip intact. Prescriptions given to the patient, he verbalized understanding.
[2018-07-31] MEDS ORDERED: MACROBID 100 M100 MG PO (17:37)
--- NOTE | 2018-07-31 18:00 | NUR ---
Discharge instructions were given to the patient and his son. Oxygen has been brought by [employer] and explained to the patient. They verbalized understanding. Mai bag was changed to leg bag per Dr. Booth's orders. Patient to dc home with mai and f/u with urologist
== END 2018-07-31 18:32 | disposition short-term general hospital (02) | DRG 698 ==
LOC: ER 03:01 → ERHOLD 04:26 → MED/SURG2 04:50
PROVIDERS: ADMIT Internal Medicine; ATTEND Internal Medicine
DX: T83.511A Infection and inflammatory reaction due to indwelling urethral catheter, initial encounter (principal); A41.89 Other specified sepsis; J11.00 Influenza due to unidentified influenza virus with unspecified type of pneumonia; J18.9 Pneumonia, unspecified organism; N17.9 Acute kidney failure, unspecified; E46 Unspecified protein-calorie malnutrition; Z68.1 Body mass index [BMI] 19.9 or less, adult; N39.0 Urinary tract infection, site not specified; J44.9 Chronic obstructive pulmonary disease, unspecified; N40.0 Benign prostatic hyperplasia without lower urinary tract symptoms; Z16.12 Extended spectrum beta lactamase (ESBL) resistance; N36.8 Other specified disorders of urethra; E87.6 Hypokalemia; B96.20 Unspecified Escherichia coli [E. coli] as the cause of diseases classified elsewhere
CPT/HCPCS: 36415; 71045; 71260; 80048; 80053; 81001; 82550; 82553; 83605; 84484; 85025; 85379; 85610; 85730; 87040; 87086; 87186; 87400; 93005; 94640; 96365; 96367; 99284; J1940; J2185; J7030; Q9967

== ENCOUNTER 2019-09-22 21:08 | Inpatient (IN) | payer MEDICARE, OTHER ==
[~2019-09-22] VITALS: Ht 180.3 cm; Wt 56.4 kg
[~2019-09-22 21:08] MED LIST changes: +FLOMAX0.4 MG PO; +MACROBID 100 M100 MG PO
--- NOTE | 2019-09-22 21:20 | Emergency Department Note ---
History of Present Illnes History of Present Illness History of Present Illness This is a 73 year old male 3 days ago with SOB . denies fever or myalgias Historian: Patient Arrival Mode: [place] Onset (how long ago): day(s) Severity: moderate Onset quality: gradual Duration (how long): day(s) Progression: worsening Chronicity: new Associated symptoms: Reports shortness of breath (PEPITO HENRIQUEZ DO) Past Medical/Family History Physician Review I have reviewed the patient's past medical and family history. Any updates have been documented here. (PEPITO HENRIQUEZ DO) 0800- spoke to patient, AAOX4 in NAD. Denies CP or dizziness, SOB noted. Admission orders written (LEIF STRANGE) Past Medical History Recent Fever: No Clinical Suspicion of Infectio: Yes New/Unexplained Change in Ment: No Past Medical History: COPD, A-Fib, Kidney Stones Other Medical History: BPH Past Surgical History: T&A, Hernia Repair, Back Surgery Other Surgery: Lt eye implant, removal of kidney stones (PEPITO HENRIQUEZ DO) Social History Smoking Cessation: Former smoker Alcohol Use: None Any Illegal Drug Use: No (PEPITO HENRIQUEZ DO) Other Last Tetanus: UNK (PEPITO HENRIQUEZ DO) Review of Systems Review of Systems Constitutional: Denies fever EENTM: Reports no symptoms Cardiovascular: Reports no symptoms Respiratory: Reports cough, Reports dyspnea Gastrointestinal: Reports no symptoms Genitourinary: Reports no symptoms Musculoskeletal: Reports no symptoms Integumentary: Reports no symptoms Neurological: Reports no symptoms Psychological: Reports no symptoms Endocrine: Reports no symptoms Hematological/Lymphatic: Reports no symptoms (PEPITO HENRIQUEZ DO) Physical Exam Related Data Allergies: Coded Allergies: No Known Allergies (Unverified , 06/26/18) Triage Vital Signs Vital Signs Date Time Temp Pulse Resp B/P (MAP) Pulse Ox O2 Delivery O2 Flow Rate FiO2 09/22/19 21:21 99.3 111 19 131/74 100 Nasal Cannula 2.0 Vital signs reviewed: Yes (PEPITO HNERIQUEZ DO) Physical Exam CONSTITUTIONAL Constitutional: Present cachectic, Present ill appearing HENT HENT: Present normocephalic, Present atraumatic, Present oropharynx clear/moist, Present nose normal HENT L/R: Present left ext ear normal, Present right ext ear normal EYES Eyes: Reports PERRL, Reports conjunctivae normal NECK Neck: Present ROM normal PULMONARY Pulmonary: Present respiratory distress, Present other (tachypnea, decreased breath sounds) CARDIOVASCULAR Cardiovascular: Present regular rhythm, Present heart sounds normal, Present capillary refill normal, Present normal rate GASTROINTESTINAL Abdominal: Present soft, Present nontender, Present bowel sounds normal GENITOURINARY Genitourinary: Present exam deferred SKIN Skin: Present warm, Present dry MUSCULOSKELETAL Musculoskeletal: Present ROM normal NEUROLOGICAL Neurological: Present alert, Present oriented x 3, Present no gross motor or sensory deficits PSYCHOLOGICAL Psychological: Present mood/affect normal, Present judgement normal (PEPITO HENRIQUEZ DO) Results Laboratory Lab results reviewed: Yes Laboratory comments Laboratory Tests Test 09/22/19 21:50 09/22/19 21:30 White Blood Count 8.81 x10e3/uL (4.8-10.8) Red Blood Count 4.00 x10e6/uL (4.3-5.7) Hemoglobin 13.0 g/dL (14.0-18.0) Hematocrit 38.1 % (38.2-49.6) Mean Corpuscular Volume 95.3 fL (81-99) Mean Corpuscular Hemoglobin 32.5 pg (28-32) Mean Corpuscular Hemoglobin Concent 34.1 g/dL (31-35) Red Cell Distribution Width 13.0 % (11.7-14.4) Platelet Count 93 x10e3/uL (140-360) Neutrophils (%) (Auto) 78.0 % (38.7-80.0) Lymphocytes (%) (Auto) 11.1 % (18.0-39.1) Monocytes (%) (Auto) 10.3 % (4.4-11.3) Eosinophils (%) (Auto) 0.0 % (0.0-6.0) Basophils (%) (Auto) 0.1 % (0.0-1.0) Neutrophils # (Auto) 6.9 (2.1-6.9) Lymphocytes # (Auto) 1.0 (1.0-3.2) Monocytes # (Auto) 0.9 (0.2-0.8) Eosinophils # (Auto) 0.0 (0.0-0.4) Basophils # (Auto) 0.0 (0.0-0.1) Absolute Immature Granulocyte (auto 0.04 x10e3/uL (0-0.1) Sodium Level 137 mmol/L (136-145) Potassium Level 3.8 mmol/L (3.5-5.1) Chloride Level 101 mmol/L (98-107) Carbon Dioxide Level 26 mmol/L (22-29) Anion Gap 13.8 mmol/L (8-16) Blood Urea Nitrogen 12 mg/dL (7-26) Creatinine 0.75 mg/dL (0.72-1.25) Estimat Glomerular Filtration Rate > 60 ML/MIN (60-) BUN/Creatinine Ratio 16 (6-25) Glucose Level 109 mg/dL (74-118) Lactic Acid Level 0.8 mmol/L (0.5-2.0) Calcium Level 8.2 mg/dL (8.4-10.2) Total Bilirubin 0.5 mg/dL (0.2-1.2) Aspartate Amino Transf (AST/SGOT) 29 IU/L (5-34) Alanine Aminotransferase (ALT/SGPT) 25 IU/L (0-55) Alkaline Phosphatase 76 IU/L (40-150) Creatine Kinase 69 IU/L (30-200) Creatine Kinase MB 2.40 ng/mL (0-5.0) Troponin I 0.035 ng/mL (0-0.300) B-Type Natriuretic Peptide < 10.0 pg/mL (0-100) Total Protein 6.2 g/dL (6.5-8.1) Albumin 2.7 g/dL (3.5-5.0) Globulin 3.5 g/dL (2.3-3.5) Albumin/Globulin Ratio 0.8 (0.8-2.0) Lipase 28 U/L (8-78) (PEPITO HENRIQUEZ DO) Imaging Imaging results reviewed: Yes (PEPITO HENRIQUEZ DO) Critical Care Time Critcal care necessary due to: respiratory failure Critcal care time spent by me: develop tx plan w patient/surrogate, evaluation patient response to tx, examination of patient, obtaining hx from patient/surrogate, order/perform tx or interventions, order/review laboratory studies, order/review radiographic studies, pulse oximetry, re-evaluation of patient condition (PEPITO HENRIQUEZ DO) Assessment & Plan Medical Decision Making MDM 73 yom presents with dyspea and hypoxia. Respiratory distress upon arrival. Diff Dx : PE, PTX, CHF, COPD-19, Sepsis, COVID-19 URI infection, ACS, ARDS, airway obstruction, Lung CA. (PEPITO HENRIQUEZ DO) Assessment & Plan Final Impression: (1) COVID-19 (2) Chronic obstructive bronchitis with pulmonary emphysema (PEPITO HENRIQUEZ DO) Depart Disposition: ADMITTED Home Meds Reported Medications Tamsulosin Hcl* (FLOMAX*) 0.4 Mg Cap, 0.4 MG PO DAILY 07/25/18 Discontinued Reported Medications Nitrofurantoin Monohyd/M-Cryst (MACROBID 100 MG CAPSULE) 100 Mg Capsule, 100 MG PO BID for 10 Days, #20 07/31/18 PEPITO HENRIQUEZ DO Sep 22, 2019 21:20 LEIF STRANGE Sep 23, 2019 08:07
[2019-09-22 22:00] LABS: BASOPHILS % 0.1 % (0.0-1.0); HEMATOCRIT 38.1 % (38.2-49.6); LYMPHOCYTES % 11.1 % (18.0-39.1); MEAN CORPUSCULAR HEMOGLOBIN 32.5 pg (28-32); MEAN CORPUSCULAR HGB CONC 34.1 g/dL (31-35); MEAN CORPUSCULAR VOLUME 95.3 fL (81-99); MONOCYTES # (AUTO) 0.9 (0.2-0.8); MONOCYTES % 10.3 % (4.4-11.3); NEUTROPHILS # (AUTO) 6.9 (2.1-6.9); PLATELET COUNT 93 x10e3/uL (140-360)
[2019-09-22 22:20] LABS: ALANINE AMINOTRANSFERASE 25 IU/L (0-55); ALBUMIN 2.7 g/dL (3.5-5.0); ALBUMIN/GLOBULIN RATIO 0.8 (0.8-2.0); ALKALINE PHOSPHATASE 76 IU/L (40-150); ANION GAP 13.8 mmol/L (8-16); BLOOD UREA NITROGEN 12 mg/dL (7-26); BUN/CREATININE RATIO 16 (6-25); CALCIUM 8.2 mg/dL (8.4-10.2); CARBON DIOXIDE 26 mmol/L (22-29); CHLORIDE 101 mmol/L (98-107); CREATINE KINASE 69 IU/L (30-200); CREATININE, SERUM 0.75 mg/dL (0.72-1.25); EST GLOMERULAR FILTRATION RATE > 60 ML/MIN (60-); GLUCOSE 109 mg/dL (74-118); LIPASE 28 U/L (8-78); POTASSIUM 3.8 mmol/L (3.5-5.1); SODIUM 137 mmol/L (136-145)
[2019-09-22 22:50] LABS: B-TYPE NATRIURETIC PEPTIDE2 < 10.0 pg/mL (0-100)
--- NOTE | 2019-09-22 22:50 | Diagnostic Imaging Report ---
EXAMINATION: CHEST SINGLE (PORTABLE) INDICATION: Short of breath, abdominal pain COMPARISON: Chest x-ray and CT 07/27/2018 FINDINGS: TUBES and LINES: None. LUNGS: Hyperinflated lungs with emphysematous changes. Prominent central pulmonary vasculature. Subtle left basilar haziness. PLEURA: No pleural effusion or pneumothorax. HEART AND MEDIASTINUM: The cardiomediastinal silhouette is unremarkable. BONES AND SOFT TISSUES: No acute osseous lesion. Soft tissues are unremarkable. UPPER ABDOMEN: No free air under the diaphragm. IMPRESSION: Findings of pulmonary emphysema/COPD. Pulmonary vascular congestion. Subtle left basilar haziness can be due to scarring/atelectasis. Signed by: Velasquez Larios DO on 09/22/2019 10:47 PM
[2019-09-22] MEDS ORDERED: FAMOTIDINE 20 MG/2 ML VIAL IV STA (23:38)
--- NOTE | 2019-09-23 01:01 | NUR ---
PT MADE AWARE BY ED MD THAT DISPO DEPENDENT ON COVID SWAB RESULT, ALL CONCERNS ANSWERED AT THIS TIME; NAD NOTED.
--- NOTE | 2019-09-23 05:30 | NUR ---
PT LAYING ON STRETCHER, EYES CLOSED, RESP E/U, SKIN WARM/DRY, NAD NOTED; BED LOW/LOCKED, CALL [place] IN REACH, WILL CONTINUE TO MONITOR.
--- NOTE | 2019-09-23 07:16 | NUR ---
REPORT GIVEN TO JUAN LAMBERT.
[2019-09-23] MEDS ORDERED: ASPIRIN 81 MG CHEW TAB PO ONE (08:15)
[2019-09-23] MEDS ORDERED: ALBUTEROL SULFATE HFA 8GM INHALATION AEROSOL INH PRN (08:15)
[2019-09-23] MEDS ORDERED: ALBUTEROL SULFATE HFA 8GM INHALATION AEROSOL INH ONE (08:15)
[2019-09-23] MEDS ORDERED: AZITHROMYCIN 500MG/NS 250 ML 250 ML IV ONE (08:15)
[2019-09-23] MEDS ORDERED: METHYLPREDNISOLONE SOD SUCC 125 MG/2ML VIAL IV ONE (08:15)
[2019-09-23] MEDS ORDERED: CEFTRIAXONE SOD 1 GM VIAL IV SCH (08:15)
[2019-09-23] MEDS ORDERED: CEFTRIAXONE SOD 1 GM/NS 50 ML 50 ML IV SCH (09:00)
[2019-09-23 10:23] LABS: CREATINE KINASE MB 3.5 ng/mL (0-5.0)
[2019-09-23] MEDS ORDERED: PANTOPRAZOLE 40 MG 10ML VIAL IV ONE (10:30)
--- NOTE | 2019-09-23 10:41 | Consultation ---
DATE OF CONSULTATION: Pulmonary Consultation Patient of Dr. Harris and alton HISTORY OF PRESENT ILLNESS: The patient admitted with abdominal pain, shortness of breath, severe orthopnea, anorexia since Sunday. He had been taking amoxicillin for urinary tract infection, started a week ago, but stopped on Sunday because of abdominal pain, but he had no report of diarrhea. He has been isolated at home. History of smoking a half to pack a day for 50 years. Worked as a mechanical maintenance technician, quit 3 years ago. He has been on home oxygen using at night, want to go to [place]. FAMILY HISTORY: Noncontributory. PAST SURGICAL HISTORY: He has had renal stones, back surgery and hernia surgery. HOME MEDICATIONS: Listed as Flomax and an albuterol inhaler. PHYSICAL EXAMINATION: GENERAL: He has been losing weight recently. He is a frail, anxious white male, complaining of orthopnea. VITAL SIGNS: Temperature 99.3. HEAD: Normocephalic, atraumatic. EYES: Extraocular movements intact. LUNGS: Diminished breath sounds bilaterally. HEART: Regular rhythm. ABDOMEN: Nontender without rebound. He is complaining of abdominal pain. He does have a history of BPH as well. DIAGNOSTIC DATA: COVID testing is pending. Chest x-ray suggests some vascular congestion. ASSESSMENT/PLAN: We will check CT of abdomen and ultrasound to rule out gallstones, amylase. Await COVID testing. Check for C difficile. BnP is normal. Continue empiric antibiotic therapy for acute bronchitis. Avoid penicillin. Thank you for this kind referral. MD MARIYA Jacobsen/GREGORY /[id number] AMY
[2019-09-23] MEDS ORDERED: IOPAMIDOL 370 MG/ML 200 ML INFUS..BTL INJ ONE (11:06)
[2019-09-23] MEDS ORDERED: SODIUM CHLORIDE 0.9% 50ML 50 ML ONE (11:06)
[2019-09-23] MEDS ORDERED: DIATRIZOATE MEGL/DIATRIZOA SOD 30 ML BTL PO ONE (11:06)
[2019-09-23] MEDS: CEFTRIAXONE SOD 1 GM/NS 50 ML 50 ML IV SCH (11:30)
[2019-09-23] MEDS: ALBUTEROL SULFATE HFA 8GM INHALATION AEROSOL INH SCH ×5 (11:30→23:58)
[2019-09-23] MEDS ORDERED: METHYLPREDNISOLONE SOD SUCC 40 MG/ML VIAL 1ML IV SCH ×3 (12:00→17:00)
[2019-09-23] MEDS ORDERED: IPRATROPIUM BROMIDE INHALER 12.9 GM INH INH SCH (13:00)
--- NOTE | 2019-09-23 13:36 | Diagnostic Imaging Report ---
EXAM: CT Chest, Abdomen and Pelvis WITH intravenous contrast INDICATION: COPD, abdominal pain COMPARISON: CT chest of 07/27/2018 TECHNIQUE: The chest, abdomen and pelvis were scanned utilizing a multidetector helical scanner from the thoracic inlet to the pubic symphysis following administration of IV contrast. Coronal and sagittal reformations were obtained. Scan was performed during portal venous phase. IV CONTRAST: 100cc Isovue 370 ORAL CONTRAST: Gastrografin COMPLICATIONS: None RADIATION DOSE: Total DLP: 426 mGy*cm Dose modulation, iterative reconstruction, and/or weight based adjustment of the mA/kV was utilized to reduce the radiation dose to as low as reasonably achievable. FINDINGS: LINES/ TUBES: None. LUNGS AND AIRWAYS: The lungs are hyperinflated. The central airways are patent. Severe upper lobe predominant centrilobular and paraseptal emphysema. No focal consolidation or pulmonary edema. Mild biapical pleural parenchymal thickening/scarring. PLEURA: The pleural spaces are clear. HEART AND MEDIASTINUM: The thyroid gland is normal. No mediastinal, hilar or axillary lymphadenopathy. The heart is normal in size.. There is no pericardial effusion. No central pulmonary embolism. HEPATOBILIARY: No focal hepatic lesions. No biliary ductal dilatation. The gallbladder appears unremarkable. SPLEEN: No splenomegaly. PANCREAS: No focal masses or ductal dilatation. ADRENALS: No adrenal nodules. KIDNEYS/URETERS: 2 mm nonobstructive left lower pole renal calculus. No hydronephrosis. 1 cm right lower pole renal cyst. No solid renal mass lesion. PELVIC ORGANS/BLADDER: Enlarged prostate measures up to 5.2 x 5.5 x 4.2 cm (volume estimate 60cc). PERITONEUM / RETROPERITONEUM: No free air or fluid. LYMPH NODES: No lymphadenopathy. VESSELS: Mild scattered atherosclerotic calcifications of the nonaneurysmal abdominal aorta and major branches. GI TRACT: Severe sigmoid diverticulosis. No CT evidence of diverticulitis. 6 no abnormal bowel thickening. No bowel obstruction. BONES AND SOFT TISSUES: Age indeterminate compression deformities at T5 and T7 are new compared to 07/27/2018. No suspicious lytic or blastic lesions. Degenerative changes of the visualized spine. IMPRESSION: Hyperinflated lungs and severe upper lobe predominant centrilobular and paraseptal emphysema. No focal pneumonia or pulmonary edema. 2 mm left lower pole nonobstructive renal calculus. Age indeterminate T5 and T7 compression deformities, new compared to 07/27/2018. Severe sigmoid diverticulosis. No CT evidence of diverticulitis. Prostatomegaly. Signed by: Pema Murray MD on 09/23/2019 1:33 PM
[2019-09-23 13:57] LABS: ABG HCO3 28 mmol/L (22-26); ABG PCO2 43 mmHg (35-45); ABG PH 7.42 (7.35-7.45); ABG PO2 116 mmHg (80-105)
--- NOTE | 2019-09-23 15:10 | Diagnostic Imaging Report ---
EXAM: Right upper quadrant abdominal ultrasound INDICATION: Abdominal pain COMPARISON: CT abdomen and pelvis of 09/23/2019 TECHNIQUE: Transverse and longitudinal images of the right upper quadrant abdomen were obtained FINDINGS: Liver: Size: 15.3 cm in the right midclavicular line, normal Appearance: Normal echogenicity, smooth contour Mass: No focal masses Gallbladder: Small amount of sludge in the gallbladder. No gallbladder distension, pericholecystic fluid, wall thickening, stone, or reported sonographic Green's sign. Gallbladder wall measures 2 mm. Bile Ducts: Intrahepatic Ducts: No dilatation Extrahepatic Ducts: Common bile duct measures 3 mm Pancreas: Not well visualized due to overlying bowel gas. Kidney: The right kidney measures 9.8 cm without evidence of hydronephrosis or stone. Vessels: Aorta: Not well-visualized due to overlying bowel gas. Inferior Vena Cava: Visualized portions are normal Main Portal Vein: 1.2 cm, normal size with hepatopetal flow. Free Fluid: No ascites or pleural effusion IMPRESSION: Small amount of sludge in the gallbladder. No sonographic evidence of cholecystitis. Signed by: Pema Murray MD on 09/23/2019 3:07 PM
[2019-09-23 18:05] VITALS: BP 130/70
[2019-09-23 18:41] VITALS: BP 130/70
[2019-09-23 18:46] VITALS: BP 130/70
[2019-09-23] MEDS ORDERED: BUDESONIDE/FORMOTEROL 160/4.5MCG INHALER INH SCH (19:00)
--- NOTE | 2019-09-23 19:00 | NUR ---
patient received from ER via WC. see admit assess. sinus tachy. vitals stable with no complaints or signs of distress.
--- NOTE | 2019-09-23 19:04 | NUR ---
BSSR RECEIVED FROM JUAN HEALY, PATIENT REMAINS ON DROPLET PRECAUTION, NO DISTRESS NOTED, CALL LIGHT WITHIN REACH, WILL CONTINUE TO MONITOR
--- NOTE | 2019-09-23 19:30 | NUR ---
placed on telemetry for safety, no distress noted
[2019-09-23 20:21] VITALS: BP 125/75
[2019-09-23 20:34] VITALS: BP 125/75
[2019-09-23 20:35] VITALS: BP 125/75
[2019-09-23 20:45] LABS: CREATINE KINASE MB 7.9 ng/mL (0-5.0)
[2019-09-23] MEDS: TAMSULOSIN HCL 0.4 MG CAP PO SCH (22:54)
[2019-09-23] MEDS ORDERED: NON-FORMULARY MEDICATION INH PRN (23:15)
--- NOTE | 2019-09-23 23:56 | NUR ---
lab reported blood culture results (+) aerobic gram variable rods
[2019-09-24] VITALS (9 sets, daily range): BP systolic 113–143; BP diastolic 68–83
[2019-09-24] MEDS ORDERED: NON-FORMULARY MEDICATION INH PRN
[2019-09-24 05:21] LABS: BASOPHILS % 0.1 % (0.0-1.0); HEMATOCRIT 38.7 % (38.2-49.6); HEMOGLOBIN 13.3 g/dL (14.0-18.0); LYMPHOCYTES # (AUTO) 0.7 (1.0-3.2); LYMPHOCYTES % 5.8 % (18.0-39.1); MEAN CORPUSCULAR HEMOGLOBIN 32.4 pg (28-32); MEAN CORPUSCULAR HGB CONC 34.4 g/dL (31-35); MEAN CORPUSCULAR VOLUME 94.4 fL (81-99); MONOCYTES # (AUTO) 0.8 (0.2-0.8); MONOCYTES % 6.4 % (4.4-11.3); NEUTROPHILS # (AUTO) 10.8 (2.1-6.9); NEUTROPHILS % 87.2 % (38.7-80.0); PLATELET COUNT 126 x10e3/uL (140-360); RED CELL DISTRIBUTION WIDTH 12.9 % (11.7-14.4)
[2019-09-24 05:52] LABS: ANION GAP 10.1 mmol/L (8-16); BLOOD UREA NITROGEN 15 mg/dL (7-26); BUN/CREATININE RATIO 22 (6-25); CALCIUM 8.8 mg/dL (8.4-10.2); CARBON DIOXIDE 29 mmol/L (22-29); CHLORIDE 102 mmol/L (98-107); CREATININE, SERUM 0.67 mg/dL (0.72-1.25); EST GLOMERULAR FILTRATION RATE > 60 ML/MIN (60-); GLUCOSE 138 mg/dL (74-118); POTASSIUM 4.1 mmol/L (3.5-5.1); SODIUM 137 mmol/L (136-145)
[2019-09-24 06:11] LABS: CREATINE KINASE MB 10.2 ng/mL (0-5.0)
[2019-09-24] MEDS: ALBUTEROL SULFATE HFA 8GM INHALATION AEROSOL INH SCH ×3 (07:08→19:00)
[2019-09-24] MEDS: BUDESONIDE/FORMOTEROL 160/4.5MCG INHALER INH SCH ×2 (08:30→19:00)
--- NOTE | 2019-09-24 08:57 | Diagnostic Imaging Report ---
Examination: Single AP view of the chest. COMPARISON: CT chest abdomen and pelvis 09/23/2019 INDICATION: Shortness of breath DISCUSSION: The lungs are hyperinflated and hyperlucent predominantly in the apices. Scattered reticular opacities in the juxtapleural right middle and lower lung zones shown to represent fibrotic changes on comparison CT. No consolidation or pleural effusion. Cardiomediastinal contour and pulmonary vasculature are within normal limits when accounting for AP technique. No acute osseous abnormalities. Thoracic spine compression fractures described on comparison CT are poorly visualized by plain radiography. IMPRESSION: Hyperinflated lungs with advanced emphysematous changes. Signed by: Dr. Carmine Souza M.D. on 09/24/2019 8:54 AM
[2019-09-24] MEDS ORDERED: DEXAMETHASONE SOD PHOS 10 MG/1 ML VIAL IV SCH (09:00)
[2019-09-24] MEDS ORDERED: TAMSULOSIN HCL 0.4 MG CAP PO SCH (09:00)
[2019-09-24] MEDS: PANTOPRAZOLE 40 MG 10ML VIAL IV SCH (09:22)
[2019-09-24] MEDS: AZITHROMYCIN 500MG/NS 250 ML 250 ML IV SCH (09:22)
[2019-09-24] MEDS: TAMSULOSIN HCL 0.4 MG CAP PO SCH ×2 (09:22→17:22)
[2019-09-24] MEDS ORDERED: SODIUM CHLORIDE 0.9% 250ML 250 ML ONE (09:52)
[2019-09-24] MEDS: CEFTRIAXONE SOD 1 GM/NS 50 ML 50 ML IV SCH (14:12)
[2019-09-24] MEDS: DEXAMETHASONE PHOS 4MG/ML 6 MG in SODIUM CHLORIDE 0.9% 50ML 50 ML IV SCH (15:49)
--- NOTE | 2019-09-24 16:01 | NUR ---
DICTATED COPD COVID 19
--- NOTE | 2019-09-24 17:42 | NUR ---
Nutrition Intervention Note RD Recommendation(s) for Physician: - Consider liberalizing diet to Regular - Recommend Ensure Enlive TID for adequacy Plan of Care: RD following, ONS, monitoring for tolerance and adequacy Nutrition reason for involvement: Nutrition Risk Trigger RD Assessment 09/23: 73 YOM admitted for chronic obstructive bronchitis found to have Covid-19. Pt evaluated today per MST screen. Unable to enter pt room per current isolation precautions, attempted to call pt on room phone x 2- no answer. Unable to obtain full nutrition hx at this time. Per admit notes pt with decreased intake x 5 days CLINICAL TRIALS NURSE. Pt currently eating 75% of meals chart. Pt with progressive wt loss per admit wt hx of 126# 5/20, 145# 4/20- pt with 12% wt loss in 3 months. Chart reviewed. Will continue to monitor. Principal Problems/Diagnoses: SOB, abdominal pain, chronic obstructive bronchitis, Covid-19 PMH: HTN GI: LBM 09/23- liquid stool Skin: intact Labs: 09/23: Na 137, K 4.1, BUN 15, Cr 0.67, Gluc 138 Meds: dexamethasone, protonix, azithromycin Ht: 71 in Wt: 128.31 lb BMI: 17.9 kg/m2 IBW: 172 lb Malnutrition Evaluation (09/24/19) The patient does not meet criteria for a specified degree of malnutrition at this time. Will re-evaluate at follow-up as appropriate. Energy intake: <50% of estimated energy requirements for 5 days Weight loss: >7.5% in 3 months (Acute) Fat loss: unable to evaluate Muscle loss: unable to evaluate Supporting Evidence: Fluid accumulation: unable to evaluate Functional Status: unable to evaluate Nutrition Prescription (Diet Order): Cardiac Estimated Nutritional Needs: 7659-7930 calories/day (30-35 kcal/kg CBW) 70-116 g protein/day (1.2-2 g pro/kg CBW) Diet Adequacy: Not meeting calorie needs, Not meeting protein needs Diet Tolerance: tolerating po Diet Education Needs Assessment: Diet education not indicated at this time. Nutrition Care Level: mod Nutrition Diagnosis: Inadequate energy and protein intake related to current medical conditions as evidenced by not meeting needs. Goal: Patient will meet 75-100% of estimated needs by follow up Progress: N/A Interventions: -Fat, mineral modified diet, Commercial beverage, Prescription medications Monitoring/Evaluation: -Total energy intake, Total protein intake, Modified diet, Liquid supplement, Weight change Signed: Jia August RD, [place]
--- NOTE | 2019-09-24 19:21 | NUR ---
Received change of shift report from am nurse. Walking rounds completed.
--- NOTE | 2019-09-24 20:38 | Consultation ---
DATE OF CONSULTATION: REASON FOR CONSULTATION: Fever and chills. HISTORY OF PRESENT ILLNESS: This patient is a 73-year-old, who comes in with abdominal pain, shortness of breath. The patient has been on amoxicillin for UTI. The patient came to the emergency room. His white count was 8.8, hemoglobin 13. His COVID-19 was positive. Sodium 137, potassium 4.1, creatinine 0.67. His blood cultures are growing gram-variable rods. The patient is currently lying in bed, comfortable. He is currently on Rocephin. PHYSICAL EXAMINATION: GENERAL: Currently alert, oriented. VITAL SIGNS: Stable, on 3 L. HEENT: He is not icteric. NECK: Supple. CHEST: Crackles bilateral. HEART: S1 and S2. ABDOMEN: Soft. IMPRESSION: 1. Coronavirus disease 2019. 2. Emphysema. 3. Concern about urinary tract infection. CT of the chest does not reflect pneumonia with coronavirus disease 2019. He does have a renal calculus. Continue with Rocephin. Await blood cultures and urine cultures. We will treat him as if he has chronic obstructive pulmonary disease exacerbation. Discussed with the medical team. We will follow. MD LUBNA Veliz/GREGORY /[id number]
--- NOTE | 2019-09-24 22:56 | NUR ---
Patient resting quitly at this time. Continue monitor.
[2019-09-25] VITALS (8 sets, daily range): BP systolic 102–143; BP diastolic 56–81
[2019-09-25] MEDS: ALBUTEROL SULFATE HFA 8GM INHALATION AEROSOL INH SCH (00:35)
[2019-09-25] MEDS ORDERED: TRAMADOL HCL 50 MG TAB PO PRN (01:30)
--- NOTE | 2019-09-25 01:33 | NUR ---
Patient c/o of problem sleeping and abd. pain. Received order from Dr Harris for meds. Meds given as ordered by .
[2019-09-25] MEDS: ZOLPIDEM TARTRATE 5 MG TAB PO PRN (01:45)
--- NOTE | 2019-09-25 04:24 | NUR ---
Patient resting quitly at this time with no c/o. Continue monitor for changes in condition.
--- NOTE | 2019-09-25 06:18 | NUR ---
Dr Harris on the floor to see patient. Orders written for labwork.
[2019-09-25 06:19] LABS: BASOPHILS % 0.1 % (0.0-1.0); HEMATOCRIT 39.4 % (38.2-49.6); HEMOGLOBIN 13.3 g/dL (14.0-18.0); LYMPHOCYTES # (AUTO) 0.9 (1.0-3.2); LYMPHOCYTES % 6.3 % (18.0-39.1); MEAN CORPUSCULAR HEMOGLOBIN 32.4 pg (28-32); MEAN CORPUSCULAR HGB CONC 33.8 g/dL (31-35); MEAN CORPUSCULAR VOLUME 95.9 fL (81-99); MONOCYTES # (AUTO) 1.2 (0.2-0.8); MONOCYTES % 8.2 % (4.4-11.3); NEUTROPHILS # (AUTO) 12.1 (2.1-6.9); NEUTROPHILS % 84.7 % (38.7-80.0); PLATELET COUNT 147 x10e3/uL (140-360); RED BLOOD COUNT 4.11 x10e6/uL (4.3-5.7); RED CELL DISTRIBUTION WIDTH 12.8 % (11.7-14.4)
[2019-09-25 06:52] LABS: ALANINE AMINOTRANSFERASE 37 IU/L (0-55); ALBUMIN 2.6 g/dL (3.5-5.0); ALBUMIN/GLOBULIN RATIO 0.8 (0.8-2.0); ALKALINE PHOSPHATASE 66 IU/L (40-150); ANION GAP 11.5 mmol/L (8-16); BLOOD UREA NITROGEN 18 mg/dL (7-26); BUN/CREATININE RATIO 25 (6-25); CALCIUM 8.5 mg/dL (8.4-10.2); CARBON DIOXIDE 30 mmol/L (22-29); CHLORIDE 100 mmol/L (98-107); CREATININE, SERUM 0.71 mg/dL (0.72-1.25); EST GLOMERULAR FILTRATION RATE > 60 ML/MIN (60-); GLUCOSE 104 mg/dL (74-118); MAGNESIUM 2.1 MG/DL (1.3-2.1); POTASSIUM 4.5 mmol/L (3.5-5.1); SODIUM 137 mmol/L (136-145)
--- NOTE | 2019-09-25 07:30 | NUR ---
PT ON RA NO DISTRESS NTOED
--- NOTE | 2019-09-25 07:30 | NUR ---
PT SLEEPING ,NO S/S DISCOMFORT,O2
[2019-09-25] MEDS: BUDESONIDE/FORMOTEROL 160/4.5MCG INHALER INH SCH (08:00)
[2019-09-25] MEDS: AZITHROMYCIN 500MG/NS 250 ML 250 ML IV SCH (08:33)
[2019-09-25] MEDS: PANTOPRAZOLE 40 MG 10ML VIAL IV SCH (09:17)
[2019-09-25] MEDS: CEFTRIAXONE SOD 1 GM/NS 50 ML 50 ML IV SCH (09:17)
[2019-09-25] MEDS: TAMSULOSIN HCL 0.4 MG CAP PO SCH ×2 (09:17→17:00)
[2019-09-25] MEDS ORDERED: ALBUTEROL SULFATE HFA 8GM INHALATION AEROSOL INH PRN (09:30)
--- NOTE | 2019-09-25 10:00 | NUR ---
AL PA HERE
[2019-09-25] MEDS: DEXAMETHASONE PHOS 4MG/ML 6 MG in SODIUM CHLORIDE 0.9% 50ML 50 ML IV SCH (12:00)
--- NOTE | 2019-09-25 12:30 | NUR ---
IV RESTARTED TO LT FA 20 X 1 STICK TOLERATED WELL,
[2019-09-25] MEDS: ASCORBIC ACID 500 MG TAB PO SCH (17:00)
[2019-09-25] MEDS: CHOLECALCIFEROL 400 UNIT TAB PO SCH (17:37)
--- NOTE | 2019-09-25 17:39 | NUR ---
PT UP ON SIDE OF BED ,O2 2L NC IN PLACE,NO SOB NOTED.
--- NOTE | 2019-09-25 19:21 | NUR ---
Received change of shift report from AM nurse. Walking rounds completed.
[2019-09-26] VITALS (8 sets, daily range): BP systolic 107–146; BP diastolic 69–87
--- NOTE | 2019-09-26 04:21 | NUR ---
Patient resting quitly at this time. Continue monitor. for changes in condition.
--- NOTE | 2019-09-26 04:54 | NUR ---
Dr Harris on the floor to see patient. Will f/u with any new orders. Informed Dr of patient HR elevating to 150 while ambulating to the bathroom. aware.
--- NOTE | 2019-09-26 07:02 | NUR ---
CHANGE OF SHIFT REPORT RECEIVED FROM PM NURSE. PT IN STABLE CONDITION. WILL CONTINUE TO MONITOR.
[2019-09-26] MEDS: BUDESONIDE/FORMOTEROL 160/4.5MCG INHALER INH SCH (07:15)
[2019-09-26] MEDS: CHOLECALCIFEROL 400 UNIT TAB PO SCH ×2 (08:36→17:28)
[2019-09-26] MEDS: TAMSULOSIN HCL 0.4 MG CAP PO SCH ×2 (08:36→17:28)
[2019-09-26] MEDS: ASCORBIC ACID 500 MG TAB PO SCH ×2 (08:36→17:28)
[2019-09-26] MEDS: ZINC SULFATE 220 MG CAP PO SCH (08:36)
[2019-09-26] MEDS: AZITHROMYCIN 500MG/NS 250 ML 250 ML IV SCH (08:36)
[2019-09-26] MEDS: PANTOPRAZOLE 40 MG 10ML VIAL IV SCH (08:36)
--- NOTE | 2019-09-26 10:15 | NUR ---
INFORMED DR. YOO OF PT'S RECENT RUN OF SVT. NEW CONSULT ORDERED FOR CARDIOLOGY, DR. SOMMER.
[2019-09-26] MEDS: CEFTRIAXONE SOD 1 GM/NS 50 ML 50 ML IV SCH (13:51)
[2019-09-26] MEDS: DEXAMETHASONE PHOS 4MG/ML 6 MG in SODIUM CHLORIDE 0.9% 50ML 50 ML IV SCH (14:50)
[2019-09-26] MEDS ORDERED: DILTIAZEM HCL ER 120 MG CAP PO SCH (18:30)
--- NOTE | 2019-09-26 18:45 | NUR ---
pt noted to be in SVT; will administer Cardizem. pt awake, alert, sitting up side of bed. pt states he just ambulated to bathroom, but reports no complaints of chest pain or palpitations at this time. pt on 3L NC O2.
--- NOTE | 2019-09-26 19:09 | NUR ---
spoke with Telemetry; pt converted back to sinus rhythm at 82 bpm. pt awake, alert, no signs of distress, speaking full sentences. pt reports no complaints at this time.
--- NOTE | 2019-09-26 19:16 | Consultation ---
DATE OF CONSULTATION: Cardiology Consultation HISTORY PRESENT ILLNESS: This is a 73-year-old man, who presented with abdominal pain, shortness of breath, orthopnea, lethargy, and anorexia for few days. He was found to have COVID-19. He denies any chest pain or shortness of breath to the nursing staff. The patient was not physically examined due to COVID-19 isolation. The patient was found to have an elevated heart rate and we were consulted for this. REVIEW OF SYSTEMS: Were not obtained. PAST MEDICAL HISTORY: As stated above in the HPI. PAST SURGICAL HISTORY: None recent. PAST FAMILY HISTORY: Noncontributory to current illness. ALLERGIES: NO KNOWN DRUG ALLERGIES. MEDICATIONS: See medication reconciliation form. PHYSICAL EXAMINATION: VITAL SIGNS: Temperature is 97.5, heart rate is 91, respirations are 17, blood pressure is 111/87, and oxygen saturation 99% on 3 L nasal cannula. The patient was not examined due to COVID-19 isolation. LABORATORY DATA: Reviewed. Hemoglobin is 13 and white blood cell count is 14. Creatinine is 0.71, potassium is 4.5, and magnesium is 2.1. Troponins are negative at 0.03. Chest x-ray shows hyperinflated lung with advanced emphysematous changes. Telemetry monitoring revealed a supraventricular tachycardia, currently normal sinus rhythm. IMPRESSION: 1. COVID-19. 2. Emphysema. 3. Tobacco abuse. 4. Supraventricular tachycardia. 5. Leukocytosis. RECOMMENDATIONS: I will start the patient on diltiazem for rate and rhythm control. Continue supportive care and COVID-19 treatment per primary team. I will avoid beta blockers at this point in time given significant COPD and emphysematous changes. Maintain on telemetry. We will check a 2D echocardiogram. DO JAMARI Syed/GREGORY /[id number]
--- NOTE | 2019-09-26 20:06 | NUR ---
Received change of shift report from AM nurse. Walking rounds completed.
[2019-09-27] VITALS (8 sets, daily range): BP systolic 92–117; BP diastolic 59–73
[2019-09-27] MEDS: ZOLPIDEM TARTRATE 5 MG TAB PO PRN (00:32)
--- NOTE | 2019-09-27 05:45 | NUR ---
Patient resting quitly at this time. Continue monitor.
--- NOTE | 2019-09-27 07:00 | NUR ---
BEDSIDE SHIFT REPORT RECEIVED FROM CORE CLEANER RN. PT DENIES NEEDS AT THIS TIME.
[2019-09-27] MEDS: BUDESONIDE/FORMOTEROL 160/4.5MCG INHALER INH SCH ×2 (07:45→19:00)
[2019-09-27] MEDS: AZITHROMYCIN 500MG/NS 250 ML 250 ML IV SCH (09:52)
[2019-09-27] MEDS: CHOLECALCIFEROL 400 UNIT TAB PO SCH ×2 (09:53→17:36)
[2019-09-27] MEDS: CEFTRIAXONE SOD 1 GM/NS 50 ML 50 ML IV SCH (09:53)
[2019-09-27] MEDS: ASCORBIC ACID 500 MG TAB PO SCH ×2 (09:53→17:36)
[2019-09-27] MEDS: PANTOPRAZOLE 40 MG 10ML VIAL IV SCH (09:53)
[2019-09-27] MEDS: TAMSULOSIN HCL 0.4 MG CAP PO SCH ×2 (09:53→17:36)
[2019-09-27] MEDS: ZINC SULFATE 220 MG CAP PO SCH (09:53)
[2019-09-27] MEDS: DIGOXIN 0.125 MG TAB PO SCH (11:55)
[2019-09-27] MEDS: APIXABAN 5 MG TABLET PO SCH ×2 (11:55→17:36)
[2019-09-27] MEDS: DEXAMETHASONE PHOS 4MG/ML 6 MG in SODIUM CHLORIDE 0.9% 50ML 50 ML IV SCH (11:56)
--- NOTE | 2019-09-27 12:29 | Progress Note ---
DATE: SUBJECTIVE: A 73-year-old male, who came in with COVID pneumonia. The patient was doing well, ready to be discharged. The patient had written doses of Decadron until the patient developed atrial fibrillation with RVR. A consult with Cardiology was done. The patient's RVR continues. The patient is currently on digoxin. The patient also has history of emphysema. The patient currently also has leukocytosis. Currently, feeling better. OBJECTIVE: VITAL SIGNS: The patient's pulse oximetry of 129, written dose of metoprolol 25 was given, respiration of 18, blood pressure is 115/78, and pulse oximetry of 87%. Echocardiogram has been done, not seen. HEENT: Normocephalic, atraumatic. CVS: S1 and S2. Regular. ABDOMEN: Soft, nontender. EXTREMITIES: No clubbing, no cyanosis, no edema. PLAN: Consult with Cardiology has been done. Atrial fibrillation, will need anticoagulation. The patient's medications include cholecalciferol, ascorbic acid, tamsulosin, Rocephin, azithromycin, diltiazem, and dexamethasone. The patient continues to feel well. Continue to monitor the patient. Further recommendation per clinical course. Continue with current management. We will discuss with the consultants. MD MATTY Correia/GREGORY /[id number]
--- NOTE | 2019-09-27 12:39 | Progress Note ---
DATE: Cardiology Progress Note SUBJECTIVE: Nursing reports the patient has no new complaints, however, did have some paroxysmal supraventricular tachycardia reported from last night that was resolved to metoprolol. OBJECTIVE: VITAL SIGNS: Temperature 98.3, pulse 82, respiratory rate 18, blood pressure 113/73, oxygen saturation 97% on 3 L nasal cannula. CARDIOVASCULAR MEDICATIONS: Lovenox 30 mg subcu b.i.d. Diltiazem 120 mg p.o. daily. IMPRESSION: 1. Coronavirus disease-19. 2. Supraventricular tachycardia. 3. Leukocytosis. 4. Emphysema. RECOMMENDATIONS: Continue diltiazem for rate control. We will re-evaluate stress from last evening. Continue medical management of the above. Avoid beta-blockers at this point, given history of COPD and emphysema like changes. Maintain on telemetry. Echocardiogram completed, awaiting review and recommendations. We will follow. Dictated by Dayanara Matta NP MD MARCELL Mcmillan/GREGORY /[id number]
[2019-09-27] MEDS ORDERED: ENOXAPARIN INJ 80 MG/0.8 ML SYR SC SCH (17:00)
[2019-09-27] MEDS ORDERED: METOPROLOL TARTRATE 25 MG TAB PO SCH (17:00)
[2019-09-27] MEDS: DILTIAZEM HCL ER 120 MG CAP PO SCH (17:36)
--- NOTE | 2019-09-27 19:30 | NUR ---
BEDSIDE SHIFT REPORT RECEIVED FROM DAY SHIFT. PT IS ALERT AND ORIENTED X3 RESPIRATIONS ARE EVEN AND UNLABORED. TELE ON.PT DOES SELF CATH PRN. PT ALSO VOIDS PER URINAL.LEFT FOREARM 20 G - SITE HEALTHY AND FLUSHES EASILY.CALL LIGHT WITHIN REACH. BED IN LOW POSITION.
[2019-09-28] VITALS (8 sets, daily range): BP systolic 97–116; BP diastolic 53–69
[2019-09-28] MEDS: BUDESONIDE/FORMOTEROL 160/4.5MCG INHALER INH SCH ×2 (07:00→21:20)
--- NOTE | 2019-09-28 07:00 | NUR ---
BEDSIDE SHIFT REPORT RECEIVED FROM FEED CRUSHER RN. PT DENIES NEEDS AT THIS TIME.
[2019-09-28] MEDS: ZINC SULFATE 220 MG CAP PO SCH (08:09)
[2019-09-28] MEDS: AZITHROMYCIN 500MG/NS 250 ML 250 ML IV SCH (08:09)
[2019-09-28] MEDS: APIXABAN 5 MG TABLET PO SCH ×2 (08:09→17:42)
[2019-09-28] MEDS: CHOLECALCIFEROL 400 UNIT TAB PO SCH ×2 (08:09→17:42)
[2019-09-28] MEDS: CEFTRIAXONE SOD 1 GM/NS 50 ML 50 ML IV SCH (08:09)
[2019-09-28] MEDS: TAMSULOSIN HCL 0.4 MG CAP PO SCH ×2 (08:09→17:42)
[2019-09-28] MEDS: PANTOPRAZOLE 40 MG 10ML VIAL IV SCH (08:09)
[2019-09-28] MEDS: DIGOXIN 0.125 MG TAB PO SCH (08:09)
[2019-09-28] MEDS: ASCORBIC ACID 500 MG TAB PO SCH ×2 (08:09→17:42)
--- NOTE | 2019-09-28 10:03 | Progress Note ---
DATE: SUBJECTIVE: This is a 73-year-old gentleman, who came in with COVID-19 pneumonia. The patient is ready to be discharged until the patient got atrial fibrillation with RVR. The patient is currently asymptomatic. No chest pains. No shortness of breath. The patient had a supraventricular tachycardia, rate controlled done by diltiazem. Continue medical management at this time by Cardiology. OBJECTIVE: VITAL SIGNS: Temperature is 97.4, pulse is 75, respirations of 19, blood pressure is 114/60, pulse oximetry of 97%. HEENT: Normocephalic, atraumatic. The patient has decreased air entry into all lung quinteros. ABDOMEN: Soft, nontender, nondistended. Saturating well at 97% on room air. ASSESSMENT: Mr. Flo Purvis with: 1. Supraventricular tachycardia. 2. Coronavirus disease-19 pneumonia. 3. Hypertension. 4. History of chronic obstructive pulmonary disease. PLAN: Continue with current management, rate controlled, to be done by Cardiology. Possible discharge tomorrow. Further recommendation per clinical course. MD MATTY Correia/MODL /[id number]
--- NOTE | 2019-09-28 11:13 | Progress Note ---
DATE: Cardiology Progress Note SUBJECTIVE: Nursing reports no new complaints. The patient's heart rate has been better controlled. OBJECTIVE: VITAL SIGNS: Temperature 97.4, pulse 75, respiratory rate 19, blood pressure 114/60, and oxygen saturation 97% on room air. CARDIOVASCULAR MEDICATION: 1. Digoxin 0.125 mg p.o. daily. 2. Apixaban 5 mg p.o. b.i.d. 3. Diltiazem 180 mg p.o. daily. LABORATORY DATA: No new labs today. TELEMETRY: Sinus rhythm. IMPRESSION: 1. Paroxysmal atrial flutter. 2. COVID-19 disease. 3. Leukocytosis. 4. Emphysema. RECOMMENDATIONS: Continue the above-listed cardiac medications. Continue to monitor heart rate. Avoid beta-blockades, given the patient's history of COPD and emphysema like changes. Maintain on telemetry at all times. We will continue to follow this patient very closely. Dictated by Dayanara Matta NP Isaak Navarrete MD JWV/MODL /[id number]
[2019-09-28] MEDS: DEXAMETHASONE PHOS 4MG/ML 6 MG in SODIUM CHLORIDE 0.9% 50ML 50 ML IV SCH (12:35)
--- NOTE | 2019-09-28 13:09 | NUR ---
THIS NURSE CALLED BY TELE STATING PT 150 TO 160 BPM WITH SVT. PT SITTING ON SIDE OF BED EATING LUNCH. 12 LEAD EKG ORDERED.
[2019-09-28] MEDS: DILTIAZEM HCL ER 120 MG CAP PO SCH (17:43)
--- NOTE | 2019-09-28 19:30 | NUR ---
BEDSIDE SHIFT REPORT RECEIVED FROM DAY RN. PT IS ALERT AND ORIENTED X3. RESPIRATIONS ARE EVEN AND UNLABORED. O2 N/C OFF O2 SAT 98%. TELE ON. PT RESTING IN SEMI FOWLERS POSITION IN BED WATCHING TV. PT DENIES PAIN. VOIDING PER URINAL. PT DENIES HAVING TO DO CATH. CALL LIGHT WITHIN REACH. BED IN LOW POSITION.
[2019-09-29] VITALS (8 sets, daily range): BP systolic 101–121; BP diastolic 62–67
[2019-09-29 06:32] LABS: HEMATOCRIT 39.8 % (38.2-49.6); HEMOGLOBIN 13.9 g/dL (14.0-18.0); MEAN CORPUSCULAR HEMOGLOBIN 33.3 pg (28-32); MEAN CORPUSCULAR HGB CONC 34.9 g/dL (31-35); MEAN CORPUSCULAR VOLUME 95.2 fL (81-99); PLATELET COUNT 222 x10e3/uL (140-360); RED BLOOD COUNT 4.18 x10e6/uL (4.3-5.7); RED CELL DISTRIBUTION WIDTH 12.4 % (11.7-14.4)
[2019-09-29 06:53] LABS: ALANINE AMINOTRANSFERASE 48 IU/L (0-55); ALBUMIN 2.7 g/dL (3.5-5.0); ALBUMIN/GLOBULIN RATIO 0.8 (0.8-2.0); ALKALINE PHOSPHATASE 65 IU/L (40-150); ANION GAP 11.2 mmol/L (8-16); BLOOD UREA NITROGEN 17 mg/dL (7-26); BUN/CREATININE RATIO 24 (6-25); CALCIUM 8.3 mg/dL (8.4-10.2); CARBON DIOXIDE 28 mmol/L (22-29); CHLORIDE 104 mmol/L (98-107); EST GLOMERULAR FILTRATION RATE > 60 ML/MIN (60-); GLUCOSE 82 mg/dL (74-118); POTASSIUM 4.2 mmol/L (3.5-5.1); SODIUM 139 mmol/L (136-145)
--- NOTE | 2019-09-29 07:00 | NUR ---
BEDSIDE SHIFT REPORT RECEIVED FROM SERVICE SECRETARY RN. PT DENIES NEEDS AT THIS TIME.
[2019-09-29 08:05] LABS: BAND NEUTROPHILS % (MANUAL) 1 %; LYMPHOCYTES % (MANUAL) 9 % (19-48); MONOCYTES % (MANUAL) 4 % (3.4-9.0); NEUTROPHILS % (MANUAL) 79 % (40-74)
[2019-09-29 08:06] LABS: PLATELET ESTIMATE ADEQUATE; PLATELET MORPHOLOGY COMMENT RARE EDTA CLUMPING; RBC MORPHOLOGY COMMENT NORMAL
[2019-09-29] MEDS: PANTOPRAZOLE 40 MG 10ML VIAL IV SCH (08:58)
[2019-09-29] MEDS: DIGOXIN 0.125 MG TAB PO SCH (08:58)
[2019-09-29] MEDS: AZITHROMYCIN 500MG/NS 250 ML 250 ML IV SCH (08:58)
[2019-09-29] MEDS: APIXABAN 5 MG TABLET PO SCH ×2 (08:58→17:35)
[2019-09-29] MEDS: CEFTRIAXONE SOD 1 GM/NS 50 ML 50 ML IV SCH (08:58)
[2019-09-29] MEDS: TAMSULOSIN HCL 0.4 MG CAP PO SCH ×2 (08:58→17:35)
[2019-09-29] MEDS: ZINC SULFATE 220 MG CAP PO SCH (08:59)
[2019-09-29] MEDS: CHOLECALCIFEROL 400 UNIT TAB PO SCH ×2 (08:59→17:35)
[2019-09-29] MEDS: ASCORBIC ACID 500 MG TAB PO SCH ×2 (08:59→17:35)
[2019-09-29] MEDS: BUDESONIDE/FORMOTEROL 160/4.5MCG INHALER INH SCH ×2 (08:59→19:01)
[2019-09-29] MEDS: DEXAMETHASONE PHOS 4MG/ML 6 MG in SODIUM CHLORIDE 0.9% 50ML 50 ML IV SCH (12:34)
--- NOTE | 2019-09-29 12:53 | Diagnostic Imaging Report ---
EXAMINATION: CHEST SINGLE (PORTABLE) INDICATION: Pneumonia COMPARISON: Chest radiograph 09/24/2019 FINDINGS: LINES/TUBES:EKG leads overlie the chest. LUNGS:Hyperinflated lungs with emphysematous changes. Linear opacities at the left lung base, likely subsegmental atelectasis. No focal consolidation. PLEURA:No pleural effusion or pneumothorax. MEDIASTINUM:The cardiomediastinal silhouette appears unchanged in size and shape. Atherosclerotic calcifications of the thoracic aorta. BONES/SOFT TISSUES:No acute osseous injury. ABDOMEN:No free air under the diaphragm. IMPRESSION: No significant interval change. Signed by: Pema Murray MD on 09/29/2019 12:50 PM
--- NOTE | 2019-09-29 17:09 | Progress Note ---
DATE: 09/29/2019 SUBJECTIVE: The patient was discussed with nursing staff. He was noted to have tachycardia to the 140s yesterday on telemetry. He denies any chest pain, but does report dyspnea on exertion. PHYSICAL EXAMINATION: VITAL SIGNS: Temperature 97.7 degrees, pulse 74, respiratory rate 18, blood pressure 110/67, and oxygen saturation 97% on 3 L nasal cannula. The patient was not examined due to isolation for COVID-19. CARDIAC MEDICATIONS: Digoxin 0.125 mg p.o. q.a.m., apixaban 5 mg p.o. b.i.d., and diltiazem 180 mg p.o. daily. LABORATORY DATA: WBC 14.43, hemoglobin 13.9, hematocrit 39.8, and platelets 222. Sodium 139, potassium 4.2, chloride 104, CO2 of 28, BUN 17, and creatinine 0.7. TELEMETRY: Telemetry was personally reviewed and interpreted revealing normal sinus rhythm. An episode of what appears to be atrial flutter was observed yesterday. IMPRESSION: 1. Paroxysmal atrial flutter, currently sinus rhythm. 2. Coronavirus disease 19 pneumonia. 3. Chronic obstructive pulmonary disease/emphysema. RECOMMENDATIONS: Continue current cardiac medications. Monitor the patient on telemetry while admitted. We will review echocardiogram. We will need up titration of his AV keven blocking agents, specifically diltiazem given his COPD and episodes of poorly controlled atrial flutter yesterday. Continue supportive care. Management of COVID-19 per Infectious Disease. Thank you for this consult. We will continue to follow. Lucinda Zamora MD ABS/MODL /[id number]
[2019-09-29] MEDS: DILTIAZEM HCL ER 120 MG CAP PO SCH (17:36)
--- NOTE | 2019-09-29 19:10 | NUR ---
Received nursing shift report from morning nurse. Pt alert and oriented to name. Denies pain at this time. Call buitrago within reach.
[2019-09-30] VITALS (8 sets, daily range): BP systolic 102–122; BP diastolic 57–83
--- NOTE | 2019-09-30 05:52 | Discharge Summary ---
DISCHARGE DIAGNOSES: 1. Coronavirus disease positive. 2. Acute exacerbation of chronic obstructive pulmonary disease. 3. Coronavirus disease pneumonia. 4. Acute on chronic respiratory failure with hypoxia. 5. Benign prostatic hyperplasia. 6. Supraventricular tachycardia. DISCHARGE MEDICATIONS: See discharge MAR. Followup in 10 days with me. HISTORY OF PRESENT ILLNESS AND HOSPITAL COURSE: See hospital chart for full details. The patient is a gentleman, who presented with acute exacerbation of COPD worsening with acute on chronic respiratory failure with hypoxia. He was brought and placed on higher levels of oxygen. He was found to be COVID positive with regular evidence of pneumonia so he was placed on antibiotic therapy as well as Decadron. The patient did quite well. He was able to wean down to his home regimen of nasal cannula and at discharge he is doing really well. He did have some evidence of SVT with heart rates up into the 170s, so he was seen by Cardiology, where he was placed on digoxin as well as Cardizem and he was discharged home with both digoxin, Cardizem 180 mg a day and Eliquis 5 mg b.i.d., which he tolerated very well. At the time of discharge, he really wanted to go home. So, he was cleared by the other subspecialists and discharged home. Please see hospital chart for details. MD RICHY James/GREGORY /[id number]
[2019-09-30] MEDS: BUDESONIDE/FORMOTEROL 160/4.5MCG INHALER INH SCH ×2 (07:00→19:00)
--- NOTE | 2019-09-30 07:20 | NUR ---
PATIENT IS AWAKE, ALERT, AND IN STABLE CONDITION WITH NO S/S OF RESPIRATORY DISTRESS. NO PAIN VOICED. 02 APPLIED AT 3L NC AND TELEMETRY APPLIED. CALL LIGHT IS WITHIN REACH, PATIENT INSTRUCTED TO CALL FOR ASSISTANCE NEEDED.
[2019-09-30] MEDS: DIGOXIN 0.125 MG TAB PO SCH (08:58)
[2019-09-30] MEDS: PANTOPRAZOLE 40 MG 10ML VIAL IV SCH (08:58)
[2019-09-30] MEDS: ASCORBIC ACID 500 MG TAB PO SCH ×2 (08:58→16:16)
[2019-09-30] MEDS: ZINC SULFATE 220 MG CAP PO SCH (08:58)
[2019-09-30] MEDS: APIXABAN 5 MG TABLET PO SCH ×2 (08:58→16:16)
[2019-09-30] MEDS: TAMSULOSIN HCL 0.4 MG CAP PO SCH ×2 (08:58→16:16)
[2019-09-30] MEDS: CHOLECALCIFEROL 400 UNIT TAB PO SCH ×2 (08:58→16:16)
[2019-09-30 09:21] LABS: BASOPHILS # (AUTO) 0.1 (0.0-0.1); BASOPHILS % 0.3 % (0.0-1.0); HEMATOCRIT 42.8 % (38.2-49.6); HEMOGLOBIN 14.8 g/dL (14.0-18.0); LYMPHOCYTES # (AUTO) 0.8 (1.0-3.2); LYMPHOCYTES % 4.2 % (18.0-39.1); MEAN CORPUSCULAR HEMOGLOBIN 32.7 pg (28-32); MEAN CORPUSCULAR HGB CONC 34.6 g/dL (31-35); MEAN CORPUSCULAR VOLUME 94.7 fL (81-99); MONOCYTES # (AUTO) 0.8 (0.2-0.8); MONOCYTES % 4.3 % (4.4-11.3); NEUTROPHILS # (AUTO) 16.6 (2.1-6.9); NEUTROPHILS % 88.3 % (38.7-80.0); PLATELET COUNT 270 x10e3/uL (140-360); RED BLOOD COUNT 4.52 x10e6/uL (4.3-5.7); RED CELL DISTRIBUTION WIDTH 12.5 % (11.7-14.4)
[2019-09-30 09:41] LABS: BLOOD UREA NITROGEN 18 mg/dL (7-26); BUN/CREATININE RATIO 23 (6-25); CALCIUM 8.5 mg/dL (8.4-10.2); CARBON DIOXIDE 27 mmol/L (22-29); CHLORIDE 102 mmol/L (98-107); CREATININE, SERUM 0.77 mg/dL (0.72-1.25); EST GLOMERULAR FILTRATION RATE > 60 ML/MIN (60-); GLUCOSE 138 mg/dL (74-118); SODIUM 137 mmol/L (136-145)
--- NOTE | 2019-09-30 10:39 | Diagnostic Imaging Report ---
EXAMINATION: CHEST SINGLE (PORTABLE) INDICATION: Pneumonia COMPARISON: Chest radiograph 09/29/2019 FINDINGS: LINES/TUBES:EKG leads overlie the chest. LUNGS:Hyperinflated lungs. Mild linear opacities at both lung bases. PLEURA:No pleural effusion or pneumothorax. MEDIASTINUM:The cardiomediastinal silhouette appears unchanged in size and shape. BONES/SOFT TISSUES:No acute osseous injury. ABDOMEN:No free air under the diaphragm. IMPRESSION: No significant interval change. Signed by: Pema Murray MD on 09/30/2019 10:36 AM
[2019-09-30] MEDS: DEXAMETHASONE SOD PHOS INJ 4 MG/ML VIAL IV SCH (12:02)
--- NOTE | 2019-09-30 13:48 | NUR ---
HOME 02 EVAL SHOWS SATS 86% AT REST CONFIRMED WITH PT THAT HE HAS HOME 02 ALREADY WITH [facility] HAS PORTABLE AND CONCENTRATOR PT'S SON AWARE HE NEEDS TO BRING PORTABLE TANK WHEN HE PICKS UP PT FOR DISCHARGE
[2019-09-30] MEDS: DILTIAZEM HCL ER 120 MG CAP PO SCH (17:23)
--- NOTE | 2019-09-30 18:55 | Progress Note ---
DATE: 09/30/2019 Cardiology Progress Note SUBJECTIVE: The patient was discussed with nursing staff. The patient does not report any chest pain or shortness of breath. OBJECTIVE: VITAL SIGNS: Temperature 98.1 degrees, pulse 80, respiratory rate 19, blood pressure 119/83, and oxygen saturation 98% on 3 L nasal cannula The patient was not examined due to isolation for COVID-19. CARDIAC MEDICATIONS: Apixaban 5 mg p.o. b.i.d., digoxin 0.125 mg p.o. daily, and diltiazem 180 mg p.o. daily. LABORATORY DATA: WBC 18.79, hemoglobin 14.8, hematocrit 42.8, and platelets 270. Sodium 137, potassium 4, chloride 102, CO2 27, BUN 18, and creatinine 0.77. Telemetry was personally reviewed and interpreted revealing normal sinus rhythm with a brief episode of atrial flutter with rapid ventricular response. IMPRESSION: 1. Paroxysmal atrial flutter, currently sinus rhythm. 2. COVID-19 pneumonia. 3. Chronic obstructive pulmonary disease/emphysema. RECOMMENDATIONS: Continue current cardiac medications. Monitor the patient on telemetry while admitted. The patient's diltiazem was not uptitrated, as the patient's blood pressure is on the low side, consider increasing if blood pressure improves after discharge. Continue supportive care. Management of COVID-19 per Infectious Disease. Thank you for this consult. We will continue to follow. Lucinda Zamora MD ABS/YULISAL /[id number]
--- NOTE | 2019-09-30 19:32 | NUR ---
Completed shift report from morning nurse. Pt alert and oriented to name, lying in bed HOB 60 degrees. Denies pain at this time. Call buitrago within reach.
--- NOTE | 2019-09-30 19:34 | NUR ---
PATIENT IS IN STABLE CONDITION WITH NO S/S OF RESPIRATORY DISTRESS. NO PAIN VOICED. TELEMETRY APPLIED. 02 APPLIED AT 3L NC. CALL LIGHT IS WITHIN REACH, PATIENT INSTRUCTED TO CALL FOR ASSISTANCE NEEDED. REPORT GIVEN TO ONCOMING NURSE.
[2019-10-01] VITALS (8 sets, daily range): BP systolic 105–120; BP diastolic 56–78
--- NOTE | 2019-10-01 05:00 | NUR ---
Blood drawn x2 stick, Pt tolerated well. No acute distress noted. O2 @2L NC. Call light within reach.
[2019-10-01 05:39] LABS: BASOPHILS % 0.2 % (0.0-1.0); HEMATOCRIT 38.4 % (38.2-49.6); HEMOGLOBIN 13.4 g/dL (14.0-18.0); LYMPHOCYTES # (AUTO) 0.8 (1.0-3.2); LYMPHOCYTES % 4.4 % (18.0-39.1); MEAN CORPUSCULAR HEMOGLOBIN 32.4 pg (28-32); MEAN CORPUSCULAR HGB CONC 34.9 g/dL (31-35); MEAN CORPUSCULAR VOLUME 92.8 fL (81-99); MONOCYTES # (AUTO) 1.1 (0.2-0.8); NEUTROPHILS # (AUTO) 15.6 (2.1-6.9); NEUTROPHILS % 86.8 % (38.7-80.0); PLATELET COUNT 250 x10e3/uL (140-360); RED BLOOD COUNT 4.14 x10e6/uL (4.3-5.7); RED CELL DISTRIBUTION WIDTH 12.5 % (11.7-14.4)
[2019-10-01] MEDS: BUDESONIDE/FORMOTEROL 160/4.5MCG INHALER INH SCH ×2 (07:00→20:42)
--- NOTE | 2019-10-01 07:25 | NUR ---
PATIENT IS IN STABLE CONDITION WITH NO S/S OF RESPIRATORY DISTRESS- NO PAIN VOICED. TELEMETRY APPLIED. 02 REAPPLIED AT 3L NC; 02 SAT AT 95. CALL LIGHT IS WITHIN REACH, PATIENT INSTRUCTED TO CALL FOR ASSISTANCE NEEDED.
[2019-10-01] MEDS: CHOLECALCIFEROL 400 UNIT TAB PO SCH ×2 (08:28→16:24)
[2019-10-01] MEDS: ASCORBIC ACID 500 MG TAB PO SCH ×2 (08:28→16:24)
[2019-10-01] MEDS: APIXABAN 5 MG TABLET PO SCH ×2 (08:28→16:24)
[2019-10-01] MEDS: PANTOPRAZOLE SOD 40 MG TABEC PO SCH (08:28)
[2019-10-01] MEDS: DIGOXIN 0.125 MG TAB PO SCH (08:28)
[2019-10-01] MEDS: TAMSULOSIN HCL 0.4 MG CAP PO SCH ×2 (08:28→16:24)
[2019-10-01] MEDS: ZINC SULFATE 220 MG CAP PO SCH (08:28)
[2019-10-01] MEDS: DEXAMETHASONE SOD PHOS INJ 4 MG/ML VIAL IV SCH (12:41)
--- NOTE | 2019-10-01 14:48 | NUR ---
Nutrition Intervention Note RD Recommendation(s) for Physician: - Consider liberalizing diet to Regular - Recommend Ensure Enlive TID for added nutrition Plan of Care: RD following, monitoring for tolerance and adequacy, oral supplement recommendation Nutrition reason for involvement: follow up RD Assessment 09/30: Follow up. Chart reviewed. Attempted to call pt over the phone, but he did not answer. RN reports pt is eating >50% of meals. Weight has remained stable since previous assessment. Continue to recommend Ensure Enlive TID. Informed RN of supplement recommendation. Will continue to monitor 09/23: 73 YOM admitted for chronic obstructive bronchitis found to have Covid-19. Pt evaluated today per MST screen. Unable to enter pt room per current isolation precautions, attempted to call pt on room phone x 2- no answer. Unable to obtain full nutrition hx at this time. 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 Pt currently eating 75% of meals chart. Pt with progressive wt loss per admit wt hx of 126# 5/20, 145# 4/20- pt with 12% wt loss in 3 months. Chart reviewed. Will continue to monitor. Principal Problems/Diagnoses: SOB, abdominal pain, chronic obstructive bronchitis, Covid-19 PMH: HTN GI: LBM 09/30 Skin: intact Labs: 09/29: Na 137, K 4.0, BUN 18, Cr 0.77, Glu 138 09/23: Na 137, K 4.1, BUN 15, Cr 0.67, Gluc 138 Meds: dexamethasone, protonix, vitamin D, vitamin C, zinc sulfate Ht: 71 in Wt: 127 (09/29) 128.31 lb (09/23) BMI: 17.9 kg/m2 IBW: 172 lb Malnutrition Evaluation (10/01/19) The patient does not meet criteria for a specified degree of malnutrition at this time. Will re-evaluate at follow-up as appropriate. Energy intake: Adequate PO intake reported at this time Weight loss: >7.5% in 3 months (Acute) Fat loss: unable to evaluate Muscle loss: unable to evaluate Supporting Evidence: Fluid accumulation: unable to evaluate Functional Status: unable to evaluate Nutrition Prescription (Diet Order): Cardiac Estimated Nutritional Needs: [id number] calories/day (30-35 kcal/kg CBW) 70-116 g protein/day (1.2-2 g pro/kg CBW) Diet Adequacy: Adequate PO intake recorded at this time Diet Tolerance: tolerating po Diet Education Needs Assessment: Diet education not indicated at this time. Nutrition Care Level: moderate Nutrition Diagnosis: Underweight related to predicted h/o inadequate energy intake as evidenced by BMI <18.5 kg/m2. Goal: Patient will meet 75-100% of estimated needs by follow up Progress: progressing Interventions: -general, healthful diet, Commercial beverage Monitoring/Evaluation: -Total energy intake, Total protein intake, Liquid supplement, Weight change Signed: Omayra Momin RD, LD
--- NOTE | 2019-10-01 15:34 | Progress Note ---
DATE: 10/01/2019 Cardiology Progress note SUBJECTIVE: The patient was discussed with nursing staff. No chest pain is reported. However, the patient is reporting more dyspnea on exertion. OBJECTIVE: VITAL SIGNS: Temperature 97.7 degrees, pulse 76, respiratory rate 28, blood pressure 109/63, and oxygen saturation 95% on 3 L nasal cannula. The patient was not examined due to isolation for COVID-19. CARDIAC MEDICATIONS: Digoxin 0.125 mg p.o. q.a.m., apixaban 5 mg p.o. b.i.d., diltiazem 180 mg p.o. daily. LABORATORY DATA: WBC 17.91, hemoglobin 13.4, hematocrit 38.4, platelets 250. Sodium 137, potassium 4, chloride 102, CO2 of 27, BUN 18, and creatinine 0.77. TELEMETRY: Telemetry was personally reviewed and interpreted revealing a normal sinus rhythm with brief episodes of atrial flutter with rapid ventricular response. IMPRESSION: 1. Paroxysmal atrial flutter, currently sinus rhythm. 2. COVID-19 pneumonia. 3. Chronic obstructive pulmonary disease/emphysema. RECOMMENDATIONS: Continue current cardiac medications. Monitor the patient on telemetry while admitted. The patient's blood pressure limits titration of diltiazem. Monitor closely. Continue supportive care. Management of COVID-19 per Infectious Disease. Management of COPD per Pulmonary. Thank you for this consult. We will continue to follow. Lucinda Zamora MD ABS/MODL /[id number]
[2019-10-01] MEDS: DILTIAZEM HCL ER 120 MG CAP PO SCH (17:53)
--- NOTE | 2019-10-01 19:18 | NUR ---
PATIENT IS IN STABLE CONDITION WITH NO S/S OF RESPIRATORY DISTRESS- NO PAIN VOICED. TELEMETRY APPLIED. 02 APPLIED AT 3L NC. CALL LIGHT IS WITHIN REACH, PATIENT INSTRUCTED TO CALL FOR ASSISTANCE NEEDED. REPORT GIVEN TO ONCOMING NURSE.
--- NOTE | 2019-10-01 19:30 | NUR ---
Patient visited in room during nursing rounds. On droplet isolation for positive covid test. Alert and oriented x3. Ambulatory in room and uses bedside commode prn. Sinus Rhythm (75) on telemetry reading. On symbicort inhalation treatment as scheduled. O2 saturation 97% on 3L NC. Call buitrago within reach. Will monitor pt closely.
--- NOTE | 2019-10-01 19:31 | NUR ---
Patient uses urinal prn but sometimes he also self-catheterizes himself when unable to urinate normally.
[2019-10-02] VITALS: BP 112/69
[2019-10-02 04:00] VITALS: BP 110/68
[2019-10-02 08:00] VITALS: BP 116/64
[2019-10-02] MEDS: APIXABAN 5 MG TABLET PO SCH (09:24)
[2019-10-02] MEDS: ASCORBIC ACID 500 MG TAB PO SCH (09:24)
[2019-10-02] MEDS: PANTOPRAZOLE SOD 40 MG TABEC PO SCH (09:24)
[2019-10-02] MEDS: BUDESONIDE/FORMOTEROL 160/4.5MCG INHALER INH SCH (09:24)
[2019-10-02] MEDS: TAMSULOSIN HCL 0.4 MG CAP PO SCH (09:24)
[2019-10-02] MEDS: DIGOXIN 0.125 MG TAB PO SCH (09:24)
[2019-10-02] MEDS: ZINC SULFATE 220 MG CAP PO SCH (09:24)
[2019-10-02] MEDS: CHOLECALCIFEROL 400 UNIT TAB PO SCH (09:24)
--- NOTE | 2019-10-02 09:57 | Progress Note ---
DATE: SUBJECTIVE: The patient is seen and evaluated. Available labs and notes reviewed. Discussed with Dr. Champagne. Please refer to the chart for more information. REVIEW OF SYSTEMS: Feels better, overall tells me he has a compressor at home for oxygen that usually on 3 L at home. The patient is currently on 3 L/minute of nasal cannula here. No nausea, vomiting, fever, chills, chest pain, or shortness of breath. MEDICATIONS: Reviewed. From Infectious Disease point of view, the patient is on zinc sulfate, dexamethasone, vitamin C, vitamin D, and Eliquis. LABORATORY STUDIES: White count of 17.91 from yesterday, which has improved from 18.79. No new CBC or BMP from today. LFT had improved on 09/28. Microbiology; recheck blood cultures negative 24 hours. RADIOLOGY STUDIES: No new radiology studies available. PHYSICAL EXAMINATION: VITAL SIGNS: Temperature 98.1, pulse is 69, respirations 20, and blood pressure 148/58. Repeat vital signs showed temperature 97.6, pulse of 73, respirations 18, and blood pressure 116/64. GENERAL: Alert and oriented, no acute distress. CV: S1-S2. CHEST: Equal expansion. Decreased breath sounds. No acute distress. HEENT: Moist. No pallor. No JVD. EXTREMITIES: Moves all. ASSESSMENT AND PLAN: 1. Coronavirus disease-19 pneumonia. 2. Emphysema. 3. Supraventricular tachycardia. 4. Bradycardia. 5. Leukocytosis. 6. Abnormal blood culture with recheck negative. 7. Status post IV antibiotics. Continue with medications above. Blood cultures negative so far. Discharge planning pending clearance from Pulmonology. The patient is currently on 2.5 to 3 L of oxygen with saturation of 95-99%. Please refer to chart for more information. Dictated by Richard Vega PA-C (Al) Abby Champagne MD /MODL /[id number]
[2019-10-02 10:04] VITALS: BP 116/64
[2019-10-02 10:55] VITALS: BP 131/82
--- NOTE | 2019-10-02 12:00 | NUR ---
CALL TO LOVELY TO VERIFY IF SCRIPT SIGNED. STATES HE DIDN'T KNOW THE PT WAS ALREADY ON SERVICE W [facility]. STATES THEY ARE NOT ABLE TO PROVIDE PORTABLE CONCENTRATORS TO OLD PATIENTS DUE TO THEIR LOW SUPPLY. CALL TO DR. DE LA CRUZ'S OFFICE. LEFT MESSAGE NO PORTABLE CONCENTRATOR AVAILABLE W ANSWERING SERVICE. STATES DR. ENRIQUEZ IS CARTRIDGE FILLER.
[2019-10-02] MEDS: DEXAMETHASONE SOD PHOS INJ 4 MG/ML VIAL IV SCH (12:45)
--- NOTE | 2019-10-02 13:05 | NUR ---
CALL TO [facility] / [facility] TO REQUEST PORTABLE CONCENTRATOR. [facility] VERIFIED PT WAS ALREADY ON THEIR SERVICE. LOVELY STATES HE WILL NEED TO GET A WET SIGNATURE FOR THE SCRIPT FROM DR. DE LA CRUZ FOR PORTABLE CONCENTRATOR. Addendum: 10/02/19 at 1309 by Susan George CM THE ABOVE WAS A LATE ENTRY FOR 10/01/2019
--- NOTE | 2019-10-02 15:21 | NUR ---
patient discharged. IV access removed- bleeding controlled and dressing applied. prescriptions and follow up directions given to patient and explained to son via telephone. patient and son denied questions. patient hooked to his own portable oxygen tank for ride home with son.
--- NOTE | 2019-10-02 15:51 | Progress Note ---
DATE: 10/01/2019 SUBJECTIVE: The patient was discussed with nursing staff. The patient does not report any chest pain and states his shortness of breath is better. OBJECTIVE: VITAL SIGNS: Temperature and oxygen saturation 99% on 3 L nasal cannula. The patient was not examined due to isolation for COVID-19. CARDIAC MEDICATIONS: Digoxin 0.25 mg p.o. q.a.m., apixaban 5 mg p.o. b.i.d., diltiazem 180 mg p.o. daily. LABORATORY DATA: None today. TELEMETRY: Personally reviewed and interpreted a normal sinus rhythm. IMPRESSION: 1. Paroxysmal atrial flutter, currently sinus rhythm. 2. COVID-19 pneumonia. 3. Chronic obstructive pulmonary disease/emphysema. RECOMMENDATIONS: Continue current cardiac medications. Monitor the patient on telemetry. The patient's blood pressure is controlled. Continue supportive care. Management of COVID-19 per Infectious Disease. Management of COPD per Pulmonary. The patient will need to follow up for digoxin level in 2 weeks. Thank you for this consult. We will continue. Lucinda Zamora MD ABS/MODL /[id number]
--- NOTE | 2019-10-03 05:03 | Discharge Summary ---
DISCHARGE DIAGNOSES: 1. Coronavirus disease pneumonia. 2. Acute exacerbation of chronic obstructive pulmonary disease. 3. Supraventricular tachycardia. 4. Benign prostatic hypertrophy. HISTORY OF PRESENT ILLNESS AND HOSPITAL COURSE: See hospital chart for full details. The patient is a gentleman, who presented with increasing shortness of breath at baseline, history of severe COPD on home oxygen, who presented with worsening shortness of breath, was found to have COVID pneumonia. So, he was brought and placed on appropriate treatment, seen by both Infectious Disease and Pulmonary. worsening of his pulmonary status, where he required more oxygen. So, it appeared to be something more of a COPD exacerbation and actual COVID pneumonia. But during his hospitalization, he did have episodes of SVT, which was responded to Diltiazem, digoxin, and Eliquis, which he was sent home with those medications. At the time of discharge, the patient was ambulating well, feeling really well. He is at his baseline with his respiratory status. He was discharged home with oxygen. He will follow up in 10 days with me in the office. He is to call or return back to the emergency room if anything worsens. Please see hospital chart for full details. MD RICHY James/GREGORY /[id number]
== END 2019-10-02 15:06 | disposition home or self-care (01) | DRG 177 ==
LOC: ER 22:00 → ERHOLD 09-23 08:12 → MED/SURG3 09-23 16:45
PROVIDERS: ADMIT Internal Medicine; ATTEND Internal Medicine
DX: U07.1 COVID-19 (principal); J12.89 Other viral pneumonia; J96.21 Acute and chronic respiratory failure with hypoxia; J15.9 Unspecified bacterial pneumonia; I47.1 Supraventricular tachycardia; I48.92 Unspecified atrial flutter; J44.1 Chronic obstructive pulmonary disease with (acute) exacerbation; Z68.1 Body mass index [BMI] 19.9 or less, adult; I48.91 Unspecified atrial fibrillation; Z87.442 Personal history of urinary calculi; N40.0 Benign prostatic hyperplasia without lower urinary tract symptoms; Z87.891 Personal history of nicotine dependence; R63.0 Anorexia; K21.9 Gastro-esophageal reflux disease without esophagitis; D69.6 Thrombocytopenia, unspecified; D64.9 Anemia, unspecified; R53.81 Other malaise
CPT/HCPCS: 36415; 36600; 71045; 71260; 74177; 76705; 80048; 80053; 82150; 82550; 82553; 82805; 82948; 83605; 83690; 83735; 83880; 84484; 85007; 85025; 85027; 87040; 87071; 87205; 93005; 93306; 94664; 99285; J0456; J0696; J1100; J2920; J2930; J7050; Q9967; U0002

== ENCOUNTER → 2019-12-04 | Day surgery (SDC) | payer MEDICARE, OTHER ==
[2019-12-01 09:41] LABS: BASOPHILS # (AUTO) 0.1 (0.0-0.1); BASOPHILS % 0.4 % (0.0-1.0); EOSINOPHILS % 0.2 % (0.0-6.0); HEMATOCRIT 42.5 % (38.2-49.6); HEMOGLOBIN 14.3 g/dL (14.0-18.0); LYMPHOCYTES # (AUTO) 1.6 (1.0-3.2); LYMPHOCYTES % 12.9 % (18.0-39.1); MEAN CORPUSCULAR HEMOGLOBIN 33.5 pg (28-32); MEAN CORPUSCULAR HGB CONC 33.6 g/dL (31-35); MEAN CORPUSCULAR VOLUME 99.5 fL (81-99); MONOCYTES # (AUTO) 1.3 (0.2-0.8); NEUTROPHILS # (AUTO) 9.6 (2.1-6.9); NEUTROPHILS % 75.6 % (38.7-80.0); PLATELET COUNT 195 x10e3/uL (140-360); RED BLOOD COUNT 4.27 x10e6/uL (4.3-5.7); RED CELL DISTRIBUTION WIDTH 13.9 % (11.7-14.4)
[2019-12-01 10:04] LABS: ALANINE AMINOTRANSFERASE 13 IU/L (0-55); ALBUMIN/GLOBULIN RATIO 1.3 (0.8-2.0); ALKALINE PHOSPHATASE 84 IU/L (40-150); BLOOD UREA NITROGEN 14 mg/dL (7-26); BUN/CREATININE RATIO 17 (6-25); CALCIUM 9.1 mg/dL (8.4-10.2); CARBON DIOXIDE 31 mmol/L (22-29); CHLORIDE 103 mmol/L (98-107); CREATININE, SERUM 0.82 mg/dL (0.72-1.25); EST GLOMERULAR FILTRATION RATE > 60 ML/MIN (60-); GLUCOSE 95 mg/dL (74-118); SODIUM 141 mmol/L (136-145)
[2019-12-01 10:58] LABS: INR 1.07; PROTHROMBIN TIME 14.5 seconds (11.9-14.5)
[2019-12-04] VITALS (9 sets, daily range): BP systolic 111–154; BP diastolic 53–77
[~2019-12-04] VITALS: Ht 180.3 cm; Wt 59.0 kg
[~2019-12-04] MED LIST changes: +DIGOXIN125 MCG PO; +DILTIAZEM HCL120 MG PO; +ELIQUIS5 MG PO; +FENTANYL CITRATE/PF 100MCG/2 ML INJ ONE; +HEPARIN SOD/SOD CHLORIDE 2,000 ML ONE; +IOPAMIDOL 370 MG/ML 200 ML INFUS..BTL INJ ONE; +LIDOCAINE HCL 2% LOCAL 20 ML VIAL ONE; +MIDAZOLAM HCL 2 MG/2 ML VIAL ONE; +PROVENTIL HFA6.7 GM INH; +SODIUM CHLORIDE 0.9% 1000ML 1,000 ML ONE; +VERAPAMIL HCL 2.5 MG/ML 2 ML VIAL ONE
--- NOTE | 2019-12-04 13:00 | Operative Report ---
DATE OF PROCEDURE: 12/04/2019 SURGEON: Kei Gupta DO PROCEDURES PERFORMED: 1. Conscious sedation, 26 minutes. 2. Selective coronary angiography x2. 3. Left heart catheterization. PREPROCEDURE DIAGNOSIS: Abnormal stress test. POSTPROCEDURE DIAGNOSIS: Abnormal stress test. ESTIMATED BLOOD LOSS: Less than 20 mL. SPECIMENS REMOVED: None. PROCEDURE IN DETAIL: After informed consent was obtained, the patient was brought to the cardiac catheterization laboratory in a fasting and nonsedated state. Bilateral groins and right wrist were prepped and draped in usual sterile fashion. A 2% lidocaine was infiltrated over the right anterior wrist for local anesthesia. The patient received fentanyl and midazolam, administered by pharmacy laboratory technician nurse and his neurologic and physiologic status was monitored by myself and pharmacy laboratory technician staff for 26 minutes. Next, using micropuncture needle, the right radial artery was accessed via modified Seldinger technique and a 5/6 Slender sheath was placed. Next, diagnostic coronary angiography x2 and left heart catheterization was performed using a TIG-4 catheter. The patient tolerated the procedure well with no immediate complications and was transferred back to his room in stable condition. PROCEDURAL FINDINGS: 1. Left main coronary artery is patent without significant disease. 2. The ostial left anterior descending coronary is a minimal 10% to 20% stenosis with diffuse luminal irregularities distally. The LAD at the left ventricular apex is diminutive. 3. Left circumflex coronary artery provides two obtuse marginal vessels and no significant disease. 4. The right coronary artery is a large dominant vessel and provides a large posterolateral branch and the large posterior descending coronary artery. 5. The left ventricular end-diastolic pressure is 14 mmHg. No aortic valve gradient present upon pullback. IMPRESSION: Abnormal stress test with mild nonobstructive coronary artery disease. RECOMMENDATIONS: Continue medical therapy. Kei Gupta DO BM/MODL /[id number]
--- NOTE | 2019-12-04 14:30 | NUR ---
Pt meets discharge criteria. VS wnl, alert and oriented. Pt and Family Understands discharge instruction. Overall general assess w/o gross outliers. Skin warm, dry, and intact. Right wrist dressing soft w/o s/s of hematoma. Pedal pulses unchanged. IV removed and appears distal tip is intact. Pt maintains mask on for COVID 19 precautions being taken by wheel chair to awaiting car. Transfers w/o gross distress with discharge paperwork in hand.
== END | disposition home or self-care (01) ==
LOC: CATH LAB 08:27
PROVIDERS: ATTEND Internal Medicine Cardiovascular Disease
DX: I25.10 Atherosclerotic heart disease of native coronary artery without angina pectoris (principal); R94.39 Abnormal result of other cardiovascular function study; Z01.812 Encounter for preprocedural laboratory examination; Z11.59 Encounter for screening for other viral diseases; Z79.02 Long term (current) use of antithrombotics/antiplatelets
CPT/HCPCS: 36415; 80053; 85025; 85610; 93458; C1769 ×2; C1894; J2001; J2250; J3010; J7030; Q9967; U0002; 99152

== ENCOUNTER 2021-10-07 17:14 | Inpatient (IN) | payer MEDICARE ==
[~2021-10-07] VITALS: Ht 177.8 cm; Wt 49.6 kg
[~2021-10-07 17:14] MED LIST changes: -FENTANYL CITRATE/PF 100MCG/2 ML INJ ONE; -HEPARIN SOD/SOD CHLORIDE 2,000 ML ONE; -IOPAMIDOL 370 MG/ML 200 ML INFUS..BTL INJ ONE; -LIDOCAINE HCL 2% LOCAL 20 ML VIAL ONE; -MIDAZOLAM HCL 2 MG/2 ML VIAL ONE; -SODIUM CHLORIDE 0.9% 1000ML 1,000 ML ONE; -VERAPAMIL HCL 2.5 MG/ML 2 ML VIAL ONE
[2021-10-07] MEDS ORDERED: METHYLPREDNISOLONE SOD SUCC 125 MG/2ML VIAL IV ONE (17:45)
[2021-10-07] MEDS ORDERED: ALBUTEROL/IPRATROPIUM 3 ML NEB NEB ONE ×3 (17:45)
[2021-10-07] MEDS ORDERED: SODIUM CHLORIDE 0.9% 500ML 500 ML IV ONE (17:45)
[2021-10-07 17:56] LABS: BASOPHILS % 0.2 % (0.0-1.0); HEMATOCRIT 34.4 % (38.2-49.6); HEMOGLOBIN 9.9 g/dL (14.0-18.0); LYMPHOCYTES # (AUTO) 0.8 (1.0-3.2); LYMPHOCYTES % 3.8 % (18.0-39.1); MEAN CORPUSCULAR HGB CONC 28.8 g/dL (31-35); MEAN CORPUSCULAR VOLUME 83.5 fL (81-99); MONOCYTES # (AUTO) 2.3 (0.2-0.8); NEUTROPHILS # (AUTO) 17.5 (2.1-6.9); NEUTROPHILS % 84.5 % (38.7-80.0); PLATELET COUNT 220 x10e3/uL (140-360); RED BLOOD COUNT 4.12 x10e6/uL (4.3-5.7); RED CELL DISTRIBUTION WIDTH 23.9 % (11.7-14.4)
[2021-10-07 17:59] LABS: INR 0.92; PROTHROMBIN TIME 13.2 seconds (11.9-14.5)
[2021-10-07] MEDS ORDERED: ACETAMINOPHEN 325 MG TAB PO ONE (18:00)
[2021-10-07 18:01] LABS: PARTIAL THROMBOPLASTIN TIME 29.1 seconds (23.8-35.5)
[2021-10-07 18:09] LABS: ALBUMIN 2.9 g/dL (3.5-5.0); ALBUMIN/GLOBULIN RATIO 0.6 (0.8-2.0); ANION GAP 17.7 mmol/L (8-16); CALCIUM 9.2 mg/dL (8.4-10.2); CREATININE, SERUM 0.89 mg/dL (0.72-1.25); POTASSIUM 3.7 mmol/L (3.5-5.1)
[2021-10-07] MEDS ORDERED: ALBUTEROL/IPRATROPIUM 3 ML NEB NEB PRN (20:15)
[2021-10-07] MEDS ORDERED: ONDANSETRON HCL INJ 2MG/ML 2ML 2 MG/ML VIAL IV PRN (20:15)
[2021-10-07] MEDS ORDERED: ACETAMINOPHEN 325 MG TAB PO PRN (20:15)
[2021-10-07 20:22] LABS: CLARITY,URINE SL CLOUDY (CLEAR); COLOR,URINE STRAW (YELLOW); KETONES,URINE TRACE (NEGATIVE); LEUKOCYTE ESTERASE ,URINE SMALL (NEGATIVE); NITRITE,URINE POSITIVE (NEGATIVE); PROTEIN,URINE DIPSTICK 1+ (NEGATIVE); URINE UROBILINOGEN 0.2 mg/dL (0.2 - 1)
[2021-10-07 20:36] LABS: AMORPHOUS SEDIMENT,URINE MODERATE (FEW); BACTERIA,URINE MANY /HPF; EPITHELIAL CELLS,URINE FEW /LPF; RBC,URINE 0-5 /HPF (0-5)
[2021-10-07 21:20] VITALS: BP 116/58
[2021-10-07 21:30] VITALS: BP 116/58
[2021-10-07 21:36] VITALS: BP 116/58
[2021-10-07 22:19] VITALS: BP 116/58
[2021-10-08] VITALS (7 sets, daily range): BP systolic 101–121; BP diastolic 56–65
[2021-10-08] MEDS ORDERED: LASIX10 MG/ML PO (00:49)
[2021-10-08] MEDS ORDERED: METOLAZONE5 MG PO (00:49)
[2021-10-08] MEDS ORDERED: MONTELUKAST SOD10 MG PO (00:49)
[2021-10-08] MEDS ORDERED: ASPIRIN325 MG PO (00:49)
[2021-10-08 06:02] LABS: BASOPHILS % 0.1 % (0.0-1.0); HEMATOCRIT 27.8 % (38.2-49.6); LYMPHOCYTES # (AUTO) 0.4 (1.0-3.2); LYMPHOCYTES % 1.9 % (18.0-39.1); MEAN CORPUSCULAR HEMOGLOBIN 24.2 pg (28-32); MEAN CORPUSCULAR HGB CONC 28.8 g/dL (31-35); MONOCYTES # (AUTO) 0.6 (0.2-0.8); NEUTROPHILS # (AUTO) 20.1 (2.1-6.9); NEUTROPHILS % 94.3 % (38.7-80.0); PLATELET COUNT 172 x10e3/uL (140-360); RED BLOOD COUNT 3.31 x10e6/uL (4.3-5.7); RED CELL DISTRIBUTION WIDTH 23.9 % (11.7-14.4)
[2021-10-08 06:43] LABS: ALBUMIN 2.3 g/dL (3.5-5.0); ALBUMIN/GLOBULIN RATIO 0.6 (0.8-2.0); ANION GAP 13.5 mmol/L (8-16); CALCIUM 8.8 mg/dL (8.4-10.2); CREATININE, SERUM 0.75 mg/dL (0.72-1.25); POTASSIUM 3.5 mmol/L (3.5-5.1)
[2021-10-08] MEDS: BENZONATATE 100 MG CAP PO SCH ×3 (08:58→20:28)
[2021-10-08] MEDS: TAMSULOSIN HCL 0.4 MG CAP PO SCH ×2 (08:58→18:06)
[2021-10-08] MEDS: DIGOXIN 0.125 MG TAB PO SCH (08:59)
[2021-10-08] MEDS: MONTELUKAST SODIUM 10 MG TAB PO SCH (08:59)
[2021-10-08] MEDS: DILTIAZEM HCL 180 MG CAP ER PO SCH (08:59)
[2021-10-08] MEDS: METHYLPREDNISOLONE SOD SUCC 40 MG/ML VIAL 1ML IV SCH ×2 (08:59→20:28)
[2021-10-08] MEDS ORDERED: APIXABAN 5 MG TABLET PO SCH (09:00)
[2021-10-08] MEDS: ASPIRIN 325 MG TAB PO SCH (09:26)
[2021-10-08 10:16] LABS: LYMPHOCYTES % (MANUAL) 1 % (19-48); MONOCYTES % (MANUAL) 1 % (3.4-9.0); NEUTROPHILS % (MANUAL) 98 % (40-74); PLATELET ESTIMATE ADEQUATE; PLATELET MORPHOLOGY COMMENT NORMAL; RBC MORPHOLOGY COMMENT NORMAL
[2021-10-09] VITALS (7 sets, daily range): BP systolic 100–116; BP diastolic 52–63
[2021-10-09 05:43] LABS: BASOPHILS % 0.1 % (0.0-1.0); HEMATOCRIT 26.9 % (38.2-49.6); HEMOGLOBIN 7.8 g/dL (14.0-18.0); LYMPHOCYTES # (AUTO) 0.5 (1.0-3.2); LYMPHOCYTES % 2.8 % (18.0-39.1); MEAN CORPUSCULAR VOLUME 82.8 fL (81-99); MONOCYTES # (AUTO) 0.6 (0.2-0.8); MONOCYTES % 3.4 % (4.4-11.3); NEUTROPHILS # (AUTO) 17.7 (2.1-6.9); NEUTROPHILS % 92.9 % (38.7-80.0); PLATELET COUNT 187 x10e3/uL (140-360); RED BLOOD COUNT 3.25 x10e6/uL (4.3-5.7); RED CELL DISTRIBUTION WIDTH 23.2 % (11.7-14.4)
[2021-10-09 06:07] LABS: ALBUMIN 2.1 g/dL (3.5-5.0); ALBUMIN/GLOBULIN RATIO 0.6 (0.8-2.0); ANION GAP 11.8 mmol/L (8-16); CALCIUM 8.7 mg/dL (8.4-10.2); CREATININE, SERUM 0.67 mg/dL (0.72-1.25); MAGNESIUM 1.9 MG/DL (1.3-2.1); POTASSIUM 3.8 mmol/L (3.5-5.1)
[2021-10-09] MEDS: METHYLPREDNISOLONE SOD SUCC 40 MG/ML VIAL 1ML IV SCH ×2 (09:07→20:59)
[2021-10-09] MEDS: ASPIRIN 325 MG TAB PO SCH (09:07)
[2021-10-09] MEDS: DILTIAZEM HCL 180 MG CAP ER PO SCH (09:08)
[2021-10-09] MEDS: TAMSULOSIN HCL 0.4 MG CAP PO SCH ×2 (09:08→16:12)
[2021-10-09] MEDS: MONTELUKAST SODIUM 10 MG TAB PO SCH (09:09)
[2021-10-09] MEDS: DIGOXIN 0.125 MG TAB PO SCH (09:09)
[2021-10-09] MEDS: BENZONATATE 100 MG CAP PO SCH ×3 (09:09→21:00)
[2021-10-09] MEDS ORDERED: ALPRAZOLAM 0.25 MG TAB PO PRN (13:00)
[2021-10-09] MEDS: MEROPENEM 1 GM in SODIUM CHLORIDE 0.9% 100 ML IV SCH ×2 (13:44→21:03)
[2021-10-10 00:15] VITALS: BP 105/57
[2021-10-10] MEDS ORDERED: SODIUM CHLORIDE 0.9% 250ML 250 ML ONE (03:54)
[2021-10-10 04:45] VITALS: BP 100/59
[2021-10-10] MEDS: MEROPENEM 1 GM in SODIUM CHLORIDE 0.9% 100 ML IV SCH ×3 (05:06→22:13)
[2021-10-10 05:59] LABS: HEMATOCRIT 27.9 % (38.2-49.6); HEMOGLOBIN 7.9 g/dL (14.0-18.0); LYMPHOCYTES # (AUTO) 0.4 (1.0-3.2); LYMPHOCYTES % 3.3 % (18.0-39.1); MEAN CORPUSCULAR HEMOGLOBIN 24.2 pg (28-32); MEAN CORPUSCULAR HGB CONC 28.3 g/dL (31-35); MEAN CORPUSCULAR VOLUME 85.6 fL (81-99); MONOCYTES # (AUTO) 0.3 (0.2-0.8); MONOCYTES % 2.5 % (4.4-11.3); NEUTROPHILS # (AUTO) 11.6 (2.1-6.9); NEUTROPHILS % 93.5 % (38.7-80.0); PLATELET COUNT 200 x10e3/uL (140-360); RED BLOOD COUNT 3.26 x10e6/uL (4.3-5.7); RED CELL DISTRIBUTION WIDTH 22.9 % (11.7-14.4)
[2021-10-10 06:17] LABS: ALBUMIN 2.1 g/dL (3.5-5.0); ALBUMIN/GLOBULIN RATIO 0.6 (0.8-2.0); ANION GAP 12.1 mmol/L (8-16); CALCIUM 8.6 mg/dL (8.4-10.2); CREATININE, SERUM 0.69 mg/dL (0.72-1.25); POTASSIUM 4.1 mmol/L (3.5-5.1)
[2021-10-10 07:47] VITALS: BP 112/55
[2021-10-10 08:00] VITALS: BP 112/55
[2021-10-10] MEDS: BENZONATATE 100 MG CAP PO SCH ×3 (08:43→20:49)
[2021-10-10] MEDS: METHYLPREDNISOLONE SOD SUCC 40 MG/ML VIAL 1ML IV SCH ×2 (08:43→20:50)
[2021-10-10] MEDS: DILTIAZEM HCL 180 MG CAP ER PO SCH (08:43)
[2021-10-10] MEDS: TAMSULOSIN HCL 0.4 MG CAP PO SCH ×2 (08:44→17:00)
[2021-10-10] MEDS: DIGOXIN 0.125 MG TAB PO SCH (08:44)
[2021-10-10] MEDS: ASPIRIN 325 MG TAB PO SCH (08:44)
[2021-10-10] MEDS: MONTELUKAST SODIUM 10 MG TAB PO SCH (08:44)
[2021-10-10] MEDS ORDERED: ONDANSETRON HCL 4 MG ORAL DISINTEGRATING TAB PO PRN (09:30)
[2021-10-10 11:15] VITALS: BP 115/50
[2021-10-10 15:09] VITALS: BP 109/51
[2021-10-11] VITALS (8 sets, daily range): BP systolic 103–130; BP diastolic 56–63
[2021-10-11] MEDS: MEROPENEM 1 GM in SODIUM CHLORIDE 0.9% 100 ML IV SCH ×3 (05:50→22:36)
[2021-10-11 05:52] LABS: BASOPHILS % 0.1 % (0.0-1.0); HEMATOCRIT 29.5 % (38.2-49.6); HEMOGLOBIN 8.4 g/dL (14.0-18.0); LYMPHOCYTES # (AUTO) 0.3 (1.0-3.2); LYMPHOCYTES % 3.4 % (18.0-39.1); MEAN CORPUSCULAR HGB CONC 28.5 g/dL (31-35); MEAN CORPUSCULAR VOLUME 84.3 fL (81-99); MONOCYTES # (AUTO) 0.2 (0.2-0.8); MONOCYTES % 1.6 % (4.4-11.3); NEUTROPHILS % 93.1 % (38.7-80.0); PLATELET COUNT 209 x10e3/uL (140-360); RED CELL DISTRIBUTION WIDTH 22.4 % (11.7-14.4)
[2021-10-11 06:29] LABS: ALBUMIN 2.2 g/dL (3.5-5.0); ALBUMIN/GLOBULIN RATIO 0.6 (0.8-2.0); ANION GAP 11.3 mmol/L (8-16); CALCIUM 8.4 mg/dL (8.4-10.2); CREATININE, SERUM 0.67 mg/dL (0.72-1.25); POTASSIUM 4.3 mmol/L (3.5-5.1)
[2021-10-11 08:37] LABS: ANISOCYTOSIS MODERATE; HYPOCHROMASIA SLIGHT; LYMPHOCYTES % (MANUAL) 3 % (19-48); NEUTROPHILS % (MANUAL) 97 % (40-74); PLATELET ESTIMATE ADEQUATE; PLATELET MORPHOLOGY COMMENT NORMAL; RBC MORPHOLOGY COMMENT ABNORMAL
[2021-10-11] MEDS: METHYLPREDNISOLONE SOD SUCC 40 MG/ML VIAL 1ML IV SCH ×2 (09:04→20:51)
[2021-10-11] MEDS: TAMSULOSIN HCL 0.4 MG CAP PO SCH ×2 (09:04→16:40)
[2021-10-11] MEDS: DILTIAZEM HCL 180 MG CAP ER PO SCH (09:04)
[2021-10-11] MEDS: DIGOXIN 0.125 MG TAB PO SCH (09:04)
[2021-10-11] MEDS: BENZONATATE 100 MG CAP PO SCH ×3 (09:04→20:51)
[2021-10-11] MEDS: ASPIRIN 325 MG TAB PO SCH (09:05)
[2021-10-11] MEDS: MONTELUKAST SODIUM 10 MG TAB PO SCH (09:05)
[2021-10-12] VITALS (8 sets, daily range): BP systolic 116–140; BP diastolic 63–75
[2021-10-12] MEDS: MEROPENEM 1 GM in SODIUM CHLORIDE 0.9% 100 ML IV SCH ×3 (05:53→21:18)
[2021-10-12] MEDS: TAMSULOSIN HCL 0.4 MG CAP PO SCH ×2 (08:52→17:04)
[2021-10-12] MEDS: BENZONATATE 100 MG CAP PO SCH ×3 (08:52→21:18)
[2021-10-12] MEDS: MONTELUKAST SODIUM 10 MG TAB PO SCH (08:52)
[2021-10-12] MEDS: DIGOXIN 0.125 MG TAB PO SCH (08:52)
[2021-10-12] MEDS: ASPIRIN 325 MG TAB PO SCH (08:52)
[2021-10-12] MEDS: DILTIAZEM HCL 180 MG CAP ER PO SCH (08:52)
[2021-10-12] MEDS: METHYLPREDNISOLONE SOD SUCC 40 MG/ML VIAL 1ML IV SCH ×2 (08:53→21:19)
[2021-10-12] MEDS: AZITHROMYCIN 250 MG TAB PO SCH (17:04)
[2021-10-13] VITALS (9 sets, daily range): BP systolic 117–139; BP diastolic 57–80
[2021-10-13] MEDS: MEROPENEM 1 GM in SODIUM CHLORIDE 0.9% 100 ML IV SCH ×3 (05:55→21:45)
[2021-10-13] MEDS ORDERED: DILTIAZEM HCL VIAL 5 ML ONE (08:27)
[2021-10-13] MEDS ORDERED: SODIUM CHLORIDE 0.9% 1000ML 1,000 ML ONE (08:27)
[2021-10-13] MEDS: METHYLPREDNISOLONE SOD SUCC 40 MG/ML VIAL 1ML IV SCH ×2 (09:58→21:45)
[2021-10-13] MEDS: ASPIRIN 325 MG TAB PO SCH (09:58)
[2021-10-13] MEDS: TAMSULOSIN HCL 0.4 MG CAP PO SCH ×2 (09:59→17:31)
[2021-10-13] MEDS: BENZONATATE 100 MG CAP PO SCH ×3 (09:59→21:45)
[2021-10-13] MEDS: DIGOXIN 0.125 MG TAB PO SCH (09:59)
[2021-10-13] MEDS: MONTELUKAST SODIUM 10 MG TAB PO SCH (09:59)
[2021-10-13] MEDS: DILTIAZEM HCL 180 MG CAP ER PO SCH (09:59)
[2021-10-13] MEDS ORDERED: DILTIAZEM HCL 5 MG/ML 5 ML VIAL IV STA (10:17)
[2021-10-13] MEDS ORDERED: SODIUM CHLORIDE 0.9% 1000ML 1,000 ML IV ONE (10:30)
[2021-10-13] MEDS: DOCUSATE SODIUM 100 MG CAP PO SCH (12:22)
[2021-10-13] MEDS ORDERED: SODIUM CHLORIDE 0.9% 250ML 250 ML ONE (15:01)
[2021-10-13] MEDS: AZITHROMYCIN 250 MG TAB PO SCH (17:31)
[2021-10-14 03:42] VITALS: BP 120/66
[2021-10-14 05:58] LABS: BASOPHILS % 0.1 % (0.0-1.0); HEMATOCRIT 28.2 % (38.2-49.6); LYMPHOCYTES # (AUTO) 0.4 (1.0-3.2); LYMPHOCYTES % 2.4 % (18.0-39.1); MEAN CORPUSCULAR HEMOGLOBIN 24.2 pg (28-32); MEAN CORPUSCULAR HGB CONC 28.4 g/dL (31-35); MEAN CORPUSCULAR VOLUME 85.5 fL (81-99); MONOCYTES # (AUTO) 0.4 (0.2-0.8); MONOCYTES % 2.4 % (4.4-11.3); NEUTROPHILS # (AUTO) 16.9 (2.1-6.9); NEUTROPHILS % 92.6 % (38.7-80.0); PLATELET COUNT 216 x10e3/uL (140-360); RED CELL DISTRIBUTION WIDTH 21.8 % (11.7-14.4)
[2021-10-14] MEDS: MEROPENEM 1 GM in SODIUM CHLORIDE 0.9% 100 ML IV SCH ×3 (06:25→21:40)
[2021-10-14 06:49] LABS: ALANINE AMINOTRANSFERASE 12 IU/L (0-55); ALBUMIN 2.1 g/dL (3.5-5.0); ALBUMIN/GLOBULIN RATIO 0.9 (0.8-2.0); ALKALINE PHOSPHATASE 57 IU/L (40-150); ANION GAP 7.3 mmol/L (8-16); BLOOD UREA NITROGEN 22 mg/dL (7-26); BUN/CREATININE RATIO 43 (6-25); CARBON DIOXIDE 36 mmol/L (22-29); CHLORIDE 104 mmol/L (98-107); CREATINE KINASE 39 IU/L (30-200); CREATININE, SERUM 0.51 mg/dL (0.72-1.25); GLUCOSE 131 mg/dL (74-118); POTASSIUM 4.3 mmol/L (3.5-5.1); SODIUM 143 mmol/L (136-145)
[2021-10-14 08:00] VITALS: BP 106/63
[2021-10-14] MEDS: TAMSULOSIN HCL 0.4 MG CAP PO SCH ×2 (08:29→16:21)
[2021-10-14] MEDS: DILTIAZEM HCL 180 MG CAP ER PO SCH (08:29)
[2021-10-14] MEDS: DOCUSATE SODIUM 100 MG CAP PO SCH (08:29)
[2021-10-14] MEDS: BENZONATATE 100 MG CAP PO SCH ×3 (08:30→20:17)
[2021-10-14] MEDS: MONTELUKAST SODIUM 10 MG TAB PO SCH (08:30)
[2021-10-14] MEDS: ASPIRIN 325 MG TAB PO SCH (08:30)
[2021-10-14] MEDS: DIGOXIN 0.125 MG TAB PO SCH (08:31)
[2021-10-14] MEDS: METHYLPREDNISOLONE SOD SUCC 40 MG/ML VIAL 1ML IV SCH (08:31)
[2021-10-14 11:55] VITALS: BP 125/59
[2021-10-14 15:54] VITALS: BP 136/62
[2021-10-14] MEDS: AZITHROMYCIN 250 MG TAB PO SCH (16:22)
[2021-10-14 19:15] VITALS: BP 124/67
[2021-10-14 20:00] VITALS: BP 124/67
[2021-10-14] MEDS ORDERED: METHYLPREDNISOLONE SOD SUCC 40 MG/ML VIAL 1ML IV SCH (21:00)
[2021-10-15] VITALS (7 sets, daily range): BP systolic 120–141; BP diastolic 61–72
[2021-10-15] MEDS: MEROPENEM 1 GM in SODIUM CHLORIDE 0.9% 100 ML IV SCH ×3 (05:07→21:08)
[2021-10-15] MEDS: ASPIRIN 325 MG TAB PO SCH (08:58)
[2021-10-15] MEDS: DIGOXIN 0.125 MG TAB PO SCH (08:58)
[2021-10-15] MEDS: DILTIAZEM HCL 180 MG CAP ER PO SCH (08:59)
[2021-10-15] MEDS: BENZONATATE 100 MG CAP PO SCH ×3 (08:59→21:07)
[2021-10-15] MEDS: PREDNISONE 20 MG TAB PO SCH ×2 (08:59→16:38)
[2021-10-15] MEDS: DOCUSATE SODIUM 100 MG CAP PO SCH (08:59)
[2021-10-15] MEDS: TAMSULOSIN HCL 0.4 MG CAP PO SCH ×2 (08:59→16:38)
[2021-10-15] MEDS: MONTELUKAST SODIUM 10 MG TAB PO SCH (08:59)
[2021-10-15] MEDS ORDERED: FUROSEMIDE INJ 10 MG/ML 4 ML VIAL IV ONE (16:00)
[2021-10-15] MEDS: AZITHROMYCIN 250 MG TAB PO SCH (18:49)
[2021-10-16] VITALS (8 sets, daily range): BP systolic 105–124; BP diastolic 52–82
[2021-10-16] MEDS: MEROPENEM 1 GM in SODIUM CHLORIDE 0.9% 100 ML IV SCH ×3 (06:13→21:24)
[2021-10-16 08:10] LABS: BASOPHILS % 0.1 % (0.0-1.0); HEMATOCRIT 31.1 % (38.2-49.6); LYMPHOCYTES # (AUTO) 0.9 (1.0-3.2); LYMPHOCYTES % 3.2 % (18.0-39.1); MEAN CORPUSCULAR HEMOGLOBIN 24.6 pg (28-32); MEAN CORPUSCULAR HGB CONC 28.9 g/dL (31-35); MONOCYTES # (AUTO) 1.4 (0.2-0.8); MONOCYTES % 4.9 % (4.4-11.3); NEUTROPHILS # (AUTO) 25.2 (2.1-6.9); NEUTROPHILS % 89.6 % (38.7-80.0); PLATELET COUNT 253 x10e3/uL (140-360); RED BLOOD COUNT 3.66 x10e6/uL (4.3-5.7); RED CELL DISTRIBUTION WIDTH 22.3 % (11.7-14.4)
[2021-10-16] MEDS: DIGOXIN 0.125 MG TAB PO SCH (08:37)
[2021-10-16] MEDS: TAMSULOSIN HCL 0.4 MG CAP PO SCH ×2 (08:37→15:27)
[2021-10-16] MEDS: PREDNISONE 20 MG TAB PO SCH ×2 (08:37→15:27)
[2021-10-16] MEDS: ASPIRIN 325 MG TAB PO SCH (08:37)
[2021-10-16] MEDS: DOCUSATE SODIUM 100 MG CAP PO SCH (08:37)
[2021-10-16] MEDS: DILTIAZEM HCL 180 MG CAP ER PO SCH (08:37)
[2021-10-16] MEDS: MONTELUKAST SODIUM 10 MG TAB PO SCH (08:37)
[2021-10-16 08:39] LABS: ANION GAP 9.1 mmol/L (8-16); CALCIUM 7.9 mg/dL (8.4-10.2); CREATININE, SERUM 0.52 mg/dL (0.72-1.25); POTASSIUM 4.1 mmol/L (3.5-5.1)
[2021-10-16] MEDS: BENZONATATE 100 MG CAP PO SCH ×3 (08:39→21:23)
[2021-10-16] MEDS ORDERED: ALBUTEROL SULFATE HFA 8GM INHALATION AEROSOL INH PRN ×2 (09:00→09:15)
[2021-10-16 09:50] LABS: LYMPHOCYTES % (MANUAL) 8 % (19-48); METAMYELOCYTES % (MANUAL) 1 % (0-0); MONOCYTES % (MANUAL) 3 % (3.4-9.0); NEUTROPHILS % (MANUAL) 87 % (40-74)
[2021-10-16 09:53] LABS: BURR CELLS SLIGHT; HYPOCHROMASIA SLIGHT; TARGET CELLS FEW
[2021-10-16 09:55] LABS: PLATELET ESTIMATE ADEQUATE; PLATELET MORPHOLOGY COMMENT FEW LARGE; RBC MORPHOLOGY COMMENT ABNORMAL
[2021-10-16 09:56] LABS: ANISOCYTOSIS MODE; POIKILOCYTOSIS SLIGHT
[2021-10-16] MEDS: ALBUTEROL/IPRATROPIUM 3 ML NEB NEB SCH ×2 (12:00→19:20)
[2021-10-16] MEDS: AZITHROMYCIN 250 MG TAB PO SCH (16:50)
[2021-10-17] VITALS (7 sets, daily range): BP systolic 97–130; BP diastolic 53–71
[2021-10-17] MEDS: ALBUTEROL/IPRATROPIUM 3 ML NEB NEB SCH ×4 (00:57→19:30)
[2021-10-17] MEDS: MEROPENEM 1 GM in SODIUM CHLORIDE 0.9% 100 ML IV SCH ×3 (06:05→22:01)
[2021-10-17 06:18] LABS: ALBUMIN/GLOBULIN RATIO 1.1 (0.8-2.0); ANION GAP 8.2 mmol/L (8-16); CALCIUM 7.6 mg/dL (8.4-10.2); CREATININE, SERUM 0.53 mg/dL (0.72-1.25); POTASSIUM 4.2 mmol/L (3.5-5.1)
[2021-10-17 07:18] LABS: BASOPHILS % 0.1 % (0.0-1.0); HEMATOCRIT 22.7 % (38.2-49.6); LYMPHOCYTES # (AUTO) 0.8 (1.0-3.2); MEAN CORPUSCULAR HEMOGLOBIN 24.4 pg (28-32); MEAN CORPUSCULAR HGB CONC 29.1 g/dL (31-35); MEAN CORPUSCULAR VOLUME 84.1 fL (81-99); MONOCYTES # (AUTO) 1.1 (0.2-0.8); MONOCYTES % 4.3 % (4.4-11.3); NEUTROPHILS # (AUTO) 23.5 (2.1-6.9); NEUTROPHILS % 90.6 % (38.7-80.0); PLATELET COUNT 205 x10e3/uL (140-360); RED CELL DISTRIBUTION WIDTH 22.7 % (11.7-14.4)
[2021-10-17 07:23] LABS: HEMOGLOBIN 6.6 g/dL (14.0-18.0)
[2021-10-17] MEDS ORDERED: SODIUM CHLORIDE 0.9% 250ML 250 ML IV ONE (07:30)
[2021-10-17 08:22] LABS: LYMPHOCYTES % (MANUAL) 5 % (19-48); MONOCYTES % (MANUAL) 2 % (3.4-9.0); NEUTROPHILS % (MANUAL) 93 % (40-74); PLATELET ESTIMATE ADEQUATE; PLATELET MORPHOLOGY COMMENT NORMAL; RBC MORPHOLOGY COMMENT NORMAL
[2021-10-17] MEDS: DILTIAZEM HCL 180 MG CAP ER PO SCH (09:26)
[2021-10-17] MEDS: MONTELUKAST SODIUM 10 MG TAB PO SCH (09:26)
[2021-10-17] MEDS: BENZONATATE 100 MG CAP PO SCH ×3 (09:26→22:01)
[2021-10-17] MEDS: DOCUSATE SODIUM 100 MG CAP PO SCH (09:26)
[2021-10-17] MEDS: PREDNISONE 20 MG TAB PO SCH ×2 (09:26→18:36)
[2021-10-17] MEDS: TAMSULOSIN HCL 0.4 MG CAP PO SCH ×2 (09:26→18:36)
[2021-10-17] MEDS: DIGOXIN 0.125 MG TAB PO SCH (09:26)
[2021-10-17] MEDS: ASPIRIN 325 MG TAB PO SCH (09:27)
[2021-10-17 10:24] LABS: INR 0.97; PROTHROMBIN TIME 13.8 seconds (11.9-14.5)
[2021-10-17 10:26] LABS: PARTIAL THROMBOPLASTIN TIME 23.7 seconds (23.8-35.5)
[2021-10-17] MEDS ORDERED: IOPAMIDOL 370 MG/ML 100 ML INFUS..BTL INJ ONE (11:05)
[2021-10-17] MEDS: AZITHROMYCIN 250 MG TAB PO SCH (18:36)
[2021-10-17] MEDS ORDERED: SODIUM CHLORIDE 0.9% 100 ML ONE (18:55)
[2021-10-18] VITALS: BP 108/87
[2021-10-18] MEDS: ALBUTEROL/IPRATROPIUM 3 ML NEB NEB SCH ×3 (01:40→12:51)
[2021-10-18 04:00] VITALS: BP 104/69
[2021-10-18] MEDS: MEROPENEM 1 GM in SODIUM CHLORIDE 0.9% 100 ML IV SCH ×3 (05:45→21:07)
[2021-10-18] MEDS ORDERED: SODIUM CHLORIDE 0.9% 250ML 250 ML ONE (06:00)
[2021-10-18 06:34] LABS: BASOPHILS % 0.1 % (0.0-1.0); HEMATOCRIT 27.8 % (38.2-49.6); HEMOGLOBIN 8.6 g/dL (14.0-18.0); LYMPHOCYTES # (AUTO) 0.7 (1.0-3.2); LYMPHOCYTES % 2.4 % (18.0-39.1); MEAN CORPUSCULAR HEMOGLOBIN 25.4 pg (28-32); MEAN CORPUSCULAR HGB CONC 30.9 g/dL (31-35); MONOCYTES # (AUTO) 1.1 (0.2-0.8); NEUTROPHILS # (AUTO) 24.5 (2.1-6.9); NEUTROPHILS % 90.4 % (38.7-80.0); PLATELET COUNT 178 x10e3/uL (140-360); RED BLOOD COUNT 3.39 x10e6/uL (4.3-5.7); RED CELL DISTRIBUTION WIDTH 20.7 % (11.7-14.4)
[2021-10-18 06:44] LABS: ALBUMIN/GLOBULIN RATIO 0.9 (0.8-2.0); ANION GAP 9.1 mmol/L (8-16); CALCIUM 7.3 mg/dL (8.4-10.2); CREATININE, SERUM 0.48 mg/dL (0.72-1.25); POTASSIUM 4.1 mmol/L (3.5-5.1)
[2021-10-18 08:44] VITALS: BP 115/59
[2021-10-18] MEDS: TAMSULOSIN HCL 0.4 MG CAP PO SCH ×2 (09:00→17:00)
[2021-10-18] MEDS: BENZONATATE 100 MG CAP PO SCH ×3 (09:00→21:07)
[2021-10-18] MEDS: DILTIAZEM HCL 180 MG CAP ER PO SCH (09:00)
[2021-10-18] MEDS: MONTELUKAST SODIUM 10 MG TAB PO SCH (09:00)
[2021-10-18] MEDS: PREDNISONE 20 MG TAB PO SCH ×2 (09:00→17:00)
[2021-10-18] MEDS: DIGOXIN 0.125 MG TAB PO SCH (09:00)
[2021-10-18] MEDS: DOCUSATE SODIUM 100 MG CAP PO SCH (09:00)
[2021-10-18] MEDS: ASPIRIN 325 MG TAB PO SCH (09:00)
[2021-10-18 12:18] VITALS: BP 129/71
[2021-10-18 13:34] LABS: LYMPHOCYTES % (MANUAL) 1 % (19-48); MONOCYTES % (MANUAL) 8 % (3.4-9.0); NEUTROPHILS % (MANUAL) 91 % (40-74)
[2021-10-18 13:35] LABS: ANISOCYTOSIS SLIGHT; HYPOCHROMASIA SLIGHT; PLATELET ESTIMATE ADEQUATE; PLATELET MORPHOLOGY COMMENT NORMAL; RBC MORPHOLOGY COMMENT ABNORMAL
[2021-10-18 15:47] LABS: BASOPHILS # (AUTO) 0.1 (0.0-0.1); BASOPHILS % 0.2 % (0.0-1.0); HEMATOCRIT 27.6 % (38.2-49.6); HEMOGLOBIN 8.5 g/dL (14.0-18.0); LYMPHOCYTES # (AUTO) 0.3 (1.0-3.2); MEAN CORPUSCULAR HEMOGLOBIN 25.4 pg (28-32); MEAN CORPUSCULAR HGB CONC 30.8 g/dL (31-35); MEAN CORPUSCULAR VOLUME 82.4 fL (81-99); MONOCYTES % 2.9 % (4.4-11.3); NEUTROPHILS # (AUTO) 31.9 (2.1-6.9); NEUTROPHILS % 93.3 % (38.7-80.0); PLATELET COUNT 181 x10e3/uL (140-360); RED BLOOD COUNT 3.35 x10e6/uL (4.3-5.7); RED CELL DISTRIBUTION WIDTH 20.8 % (11.7-14.4)
[2021-10-18 17:00] VITALS: BP 119/57
[2021-10-18 20:00] VITALS: BP 121/58
[2021-10-19] VITALS (9 sets, daily range): BP systolic 100–135; BP diastolic 54–73
[2021-10-19] MEDS: MEROPENEM 1 GM in SODIUM CHLORIDE 0.9% 100 ML IV SCH (05:27)
[2021-10-19 06:18] LABS: BASOPHILS % 0.1 % (0.0-1.0); HEMATOCRIT 27.5 % (38.2-49.6); HEMOGLOBIN 8.4 g/dL (14.0-18.0); LYMPHOCYTES # (AUTO) 0.8 (1.0-3.2); LYMPHOCYTES % 2.7 % (18.0-39.1); MEAN CORPUSCULAR HEMOGLOBIN 25.3 pg (28-32); MEAN CORPUSCULAR HGB CONC 30.5 g/dL (31-35); MEAN CORPUSCULAR VOLUME 82.8 fL (81-99); MONOCYTES # (AUTO) 1.1 (0.2-0.8); MONOCYTES % 3.9 % (4.4-11.3); NEUTROPHILS # (AUTO) 25.6 (2.1-6.9); NEUTROPHILS % 90.3 % (38.7-80.0); PLATELET COUNT 204 x10e3/uL (140-360); RED BLOOD COUNT 3.32 x10e6/uL (4.3-5.7)
[2021-10-19 07:59] LABS: BAND NEUTROPHILS % (MANUAL) 1 %; LYMPHOCYTES % (MANUAL) 3 % (19-48); METAMYELOCYTES % (MANUAL) 1 % (0-0); MONOCYTES % (MANUAL) 5 % (3.4-9.0); NEUTROPHILS % (MANUAL) 90 % (40-74)
[2021-10-19 08:00] LABS: PLATELET MORPHOLOGY COMMENT NORMAL
[2021-10-19 08:01] LABS: PLATELET ESTIMATE ADEQUATE
[2021-10-19 08:02] LABS: HYPERSEGMENTED NEUTROPHILS FEW
[2021-10-19] MEDS: ASPIRIN 325 MG TAB PO SCH (09:30)
[2021-10-19] MEDS: DIGOXIN 0.125 MG TAB PO SCH (09:31)
[2021-10-19] MEDS: MONTELUKAST SODIUM 10 MG TAB PO SCH (09:31)
[2021-10-19] MEDS: BENZONATATE 100 MG CAP PO SCH ×3 (09:31→21:25)
[2021-10-19] MEDS: DOCUSATE SODIUM 100 MG CAP PO SCH (09:31)
[2021-10-19] MEDS: TAMSULOSIN HCL 0.4 MG CAP PO SCH ×2 (09:31→17:50)
[2021-10-19] MEDS: DILTIAZEM HCL 180 MG CAP ER PO SCH (09:31)
[2021-10-19] MEDS: PREDNISONE 20 MG TAB PO SCH ×2 (09:31→17:50)
[2021-10-19] MEDS: ALBUTEROL/IPRATROPIUM 3 ML NEB NEB SCH ×2 (11:00→19:41)
[2021-10-20] MEDS: ALBUTEROL/IPRATROPIUM 3 ML NEB NEB SCH ×3 (01:10→10:50)
[2021-10-20 05:08] VITALS: BP 113/70
[2021-10-20 08:00] VITALS: BP 113/86
[2021-10-20 08:01] VITALS: BP 113/70
[2021-10-20] MEDS: DIGOXIN 0.125 MG TAB PO SCH (08:52)
[2021-10-20] MEDS: ASPIRIN 325 MG TAB PO SCH (08:52)
[2021-10-20] MEDS: MONTELUKAST SODIUM 10 MG TAB PO SCH (08:52)
[2021-10-20] MEDS: TAMSULOSIN HCL 0.4 MG CAP PO SCH (08:52)
[2021-10-20] MEDS: PREDNISONE 20 MG TAB PO SCH (08:52)
[2021-10-20] MEDS: BENZONATATE 100 MG CAP PO SCH (08:52)
[2021-10-20] MEDS: DOCUSATE SODIUM 100 MG CAP PO SCH (08:52)
[2021-10-20] MEDS: DILTIAZEM HCL 180 MG CAP ER PO SCH (08:58)
== END 2021-10-20 11:05 | disposition home or self-care (01) | DRG 193 ==
LOC: ER 17:26 → ERHOLD 20:13 → MED/SURG2 21:23
PROVIDERS: ADMIT Internal Medicine; ATTEND Internal Medicine
PROC: 5A0935A Assistance with Respiratory Ventilation, Less than 24 Consecutive Hours, High Flow/Velocity Cannula (ICD-10-PCS; principal; 2021-10-07)
PROC: 30233N1 Transfusion of Nonautologous Red Blood Cells into Peripheral Vein, Percutaneous Approach (ICD-10-PCS; 2021-10-17)
DX: J18.9 Pneumonia, unspecified organism (principal); J96.21 Acute and chronic respiratory failure with hypoxia; J44.0 Chronic obstructive pulmonary disease with (acute) lower respiratory infection; E44.0 Moderate protein-calorie malnutrition; Z68.1 Body mass index [BMI] 19.9 or less, adult; N39.0 Urinary tract infection, site not specified; I48.92 Unspecified atrial flutter; I47.1 Supraventricular tachycardia; Z16.12 Extended spectrum beta lactamase (ESBL) resistance; R64 Cachexia; J44.1 Chronic obstructive pulmonary disease with (acute) exacerbation; D50.0 Iron deficiency anemia secondary to blood loss (chronic); E11.9 Type 2 diabetes mellitus without complications; Z99.81 Dependence on supplemental oxygen; I10 Essential (primary) hypertension; N40.1 Benign prostatic hyperplasia with lower urinary tract symptoms; N39.498 Other specified urinary incontinence; R33.8 Other retention of urine; Z87.442 Personal history of urinary calculi; Z87.440 Personal history of urinary (tract) infections; Z87.891 Personal history of nicotine dependence; Z20.822 Contact with and (suspected) exposure to COVID-19; Z82.49 Family history of ischemic heart disease and other diseases of the circulatory system; N28.1 Cyst of kidney, acquired; I48.0 Paroxysmal atrial fibrillation; I25.10 Atherosclerotic heart disease of native coronary artery without angina pectoris; Z79.01 Long term (current) use of anticoagulants; N31.9 Neuromuscular dysfunction of bladder, unspecified; B96.20 Unspecified Escherichia coli [E. coli] as the cause of diseases classified elsewhere; M79.81 Nontraumatic hematoma of soft tissue; Z79.82 Long term (current) use of aspirin
CPT/HCPCS: 36415; 51700; 71045; 74176; 74177; 80048; 80053; 80162; 81001; 82550; 82553; 82948; 83605; 83735; 83880; 84484; 85025; 85610; 85730; 86850; 86900; 86920; 87040; 87086; 87186; 93005; 94640; 94799; 99284; J0456; J0696; J1940; J2185; J2405; J2920; J2930; J7030; J7040; J7050; J7512; P9016; Q9967

== ENCOUNTER 2021-10-23 10:28 | Emergency (ER) | payer MEDICARE, OTHER ==
[~2021-10-23] VITALS: Ht 177.8 cm; Wt 49.4 kg
[~2021-10-23 10:28] MED LIST changes: +ASPIRIN325 MG PO; +LASIX10 MG/ML PO; +METOLAZONE5 MG PO; +MONTELUKAST SOD10 MG PO
[2021-10-23 10:56] LABS: BASOPHILS % 0.1 % (0.0-1.0); HEMATOCRIT 25.4 % (38.2-49.6); HEMOGLOBIN 7.6 g/dL (14.0-18.0); LYMPHOCYTES # (AUTO) 0.5 (1.0-3.2); LYMPHOCYTES % 1.8 % (18.0-39.1); MEAN CORPUSCULAR HEMOGLOBIN 25.9 pg (28-32); MEAN CORPUSCULAR HGB CONC 29.9 g/dL (31-35); MEAN CORPUSCULAR VOLUME 86.7 fL (81-99); MONOCYTES # (AUTO) 2.9 (0.2-0.8); MONOCYTES % 10.2 % (4.4-11.3); NEUTROPHILS # (AUTO) 24.8 (2.1-6.9); NEUTROPHILS % 86.3 % (38.7-80.0); PLATELET COUNT 212 x10e3/uL (140-360); RED BLOOD COUNT 2.93 x10e6/uL (4.3-5.7); RED CELL DISTRIBUTION WIDTH 22.5 % (11.7-14.4)
[2021-10-23] MEDS ORDERED: TETANUS/DIPHTHERIA TOX ADULT 0.5 ML SYR IM ONE (11:00)
[2021-10-23 11:24] LABS: ALBUMIN 2.3 g/dL (3.5-5.0); ALBUMIN/GLOBULIN RATIO 0.7 (0.8-2.0); ANION GAP 10.8 mmol/L (8-16); CALCIUM 8.1 mg/dL (8.4-10.2); CREATININE, SERUM 0.63 mg/dL (0.72-1.25); POTASSIUM 3.8 mmol/L (3.5-5.1)
[2021-10-23 12:00] LABS: CLARITY,URINE CLEAR (CLEAR); COLOR,URINE YELLOW (YELLOW); LEUKOCYTE ESTERASE ,URINE TRACE (NEGATIVE)
[2021-10-23 12:01] LABS: KETONES,URINE NEGATIVE (NEGATIVE); NITRITE,URINE NEGATIVE (NEGATIVE); PROTEIN,URINE DIPSTICK NEGATIVE (NEGATIVE); URINE UROBILINOGEN 0.2 mg/dL (0.2 - 1)
[2021-10-23 12:04] LABS: BAND NEUTROPHILS % (MANUAL) 2 %; LYMPHOCYTES % (MANUAL) 2 % (19-48); MONOCYTES % (MANUAL) 13 % (3.4-9.0); NEUTROPHILS % (MANUAL) 83 % (40-74)
[2021-10-23 12:05] LABS: HYPOCHROMASIA SLIGHT; PLATELET ESTIMATE ADEQUATE; PLATELET MORPHOLOGY COMMENT NORMAL; RBC MORPHOLOGY COMMENT NORMAL
[2021-10-23 12:12] LABS: BACTERIA,URINE FEW /HPF; EPITHELIAL CELLS,URINE FEW /LPF; RBC,URINE 0-5 /HPF (0-5); WBC,URINE (MAN) 0-5 /HPF (0-5)
[2021-10-23 12:13] LABS: MUCUS,URINE FEW (RARE)
[2021-10-23] MEDS ORDERED: SODIUM CHLORIDE 0.9% 1000ML 1,000 ML IV ONE (12:30)
== END 2021-10-23 13:29 | disposition home or self-care (01) ==
LOC: ER 10:41
DX: S00.83XA Contusion of other part of head, initial encounter (principal); W01.0XXA Fall on same level from slipping, tripping and stumbling without subsequent striking against object, initial encounter; Y93.01 Activity, walking, marching and hiking; Y92.89 Other specified places as the place of occurrence of the external cause; E86.0 Dehydration; D72.829 Elevated white blood cell count, unspecified; J44.9 Chronic obstructive pulmonary disease, unspecified; I48.91 Unspecified atrial fibrillation; K21.9 Gastro-esophageal reflux disease without esophagitis; J45.909 Unspecified asthma, uncomplicated; Z87.442 Personal history of urinary calculi
CPT/HCPCS: 36415; 70450; 80053; 81001; 85025; 90471; 90714; 99284; J7030

== ENCOUNTER → 2022-02-06 | Outpatient (CLI) | payer MEDICARE | LOC: RAD 09:25 | PROVIDERS: ATTEND Urology | DX: N20.0 Calculus of kidney (principal) | CPT/HCPCS: 74018 ==

== ENCOUNTER 2022-04-30 08:10 | Inpatient (IN) | payer MEDICARE ==
[~2022-04-30] VITALS: Ht 177.8 cm; Wt 49.4 kg
[2022-04-30 08:39] LABS: BASOPHILS % 0.2 % (0.0-1.0); EOSINOPHILS # (AUTO) 0.1 (0.0-0.4); EOSINOPHILS % 0.3 % (0.0-6.0); HEMATOCRIT 34.3 % (38.2-49.6); HEMOGLOBIN 9.6 g/dL (14.0-18.0); LYMPHOCYTES # (AUTO) 1.1 (1.0-3.2); LYMPHOCYTES % 6.4 % (18.0-39.1); MEAN CORPUSCULAR HEMOGLOBIN 25.5 pg (28-32); MONOCYTES # (AUTO) 2.2 (0.2-0.8); MONOCYTES % 12.4 % (4.4-11.3); NEUTROPHILS # (AUTO) 14.1 (2.1-6.9); NEUTROPHILS % 80.2 % (38.7-80.0); PLATELET COUNT 172 x10e3/uL (140-360); RED BLOOD COUNT 3.77 x10e6/uL (4.3-5.7); RED CELL DISTRIBUTION WIDTH 16.2 % (11.7-14.4)
[2022-04-30] MEDS ORDERED: ALBUTEROL/IPRATROPIUM 3 ML NEB NEB ONE (08:45)
[2022-04-30] MEDS ORDERED: DEXAMETHASONE SOD PHOS 10 MG/1 ML VIAL IV ONE (08:45)
[2022-04-30] MEDS ORDERED: KETOROLAC TROMETHAMINE 30 MG/ML VIAL IV STA (08:51)
[2022-04-30 09:00] LABS: ALBUMIN 2.7 g/dL (3.5-5.0); ALBUMIN/GLOBULIN RATIO 0.8 (0.8-2.0); ANION GAP 12.4 mmol/L (8-16); CALCIUM 8.5 mg/dL (8.4-10.2); CREATININE, SERUM 0.61 mg/dL (0.72-1.25); POTASSIUM 4.4 mmol/L (3.5-5.1)
[2022-04-30] MEDS ORDERED: SODIUM CHLORIDE 0.9% 1000ML 1,000 ML IV SCH (10:00)
[2022-04-30] MEDS ORDERED: DOXYCYCLINE HYCLATE TABLET 100 MG TAB PO ONE (10:30)
[2022-04-30 11:00] VITALS: BP 141/71
[2022-04-30 11:21] LABS: LYMPHOCYTES % (MANUAL) 8 % (19-48); MONOCYTES % (MANUAL) 8 % (3.4-9.0); NEUTROPHILS % (MANUAL) 84 % (40-74)
[2022-04-30 11:22] LABS: PLATELET ESTIMATE ADEQUATE; PLATELET MORPHOLOGY COMMENT NORMAL
[2022-04-30 11:23] LABS: RBC MORPHOLOGY COMMENT NORMAL
[2022-04-30 11:59] VITALS: BP 141/71
[2022-04-30] MEDS: SODIUM CHLORIDE 0.9% 1000ML 1,000 ML IV SCH ×2 (15:05→18:18)
[2022-04-30 15:47] VITALS: BP 141/88
[2022-04-30 20:00] VITALS: BP 133/68
[2022-04-30] MEDS: Doxycycline IV 100 MG in SODIUM CHLORIDE 0.9% 100 ML IV SCH (20:58)
[2022-04-30] MEDS: ALBUTEROL/IPRATROPIUM 3 ML NEB NEB SCH (23:15)
[2022-05-01 00:14] VITALS: BP 134/72
[2022-05-01] MEDS: ALBUTEROL/IPRATROPIUM 3 ML NEB NEB SCH ×6 (03:47→23:05)
[2022-05-01 04:00] VITALS: BP 116/74
[2022-05-01] MEDS: SODIUM CHLORIDE 0.9% 1000ML 1,000 ML IV SCH ×2 (04:24→11:10)
[2022-05-01] MEDS: METHYLPREDNISOLONE SOD SUCC 40 MG/ML VIAL 1ML IV SCH ×3 (05:29→20:15)
[2022-05-01 06:01] LABS: BASOPHILS % 0.1 % (0.0-1.0); HEMATOCRIT 26.1 % (38.2-49.6); LYMPHOCYTES # (AUTO) 0.4 (1.0-3.2); LYMPHOCYTES % 3.6 % (18.0-39.1); MEAN CORPUSCULAR HEMOGLOBIN 25.9 pg (28-32); MEAN CORPUSCULAR HGB CONC 30.7 g/dL (31-35); MEAN CORPUSCULAR VOLUME 84.5 fL (81-99); MONOCYTES # (AUTO) 0.5 (0.2-0.8); MONOCYTES % 4.2 % (4.4-11.3); NEUTROPHILS # (AUTO) 10.4 (2.1-6.9); NEUTROPHILS % 91.3 % (38.7-80.0); RED BLOOD COUNT 3.09 x10e6/uL (4.3-5.7); RED CELL DISTRIBUTION WIDTH 16.3 % (11.7-14.4)
[2022-05-01 06:09] LABS: PLATELET COUNT 164 x10e3/uL (140-360)
[2022-05-01 06:22] LABS: ANION GAP 11.9 mmol/L (8-16); CALCIUM 8.6 mg/dL (8.4-10.2); CREATININE, SERUM 0.61 mg/dL (0.72-1.25); POTASSIUM 3.9 mmol/L (3.5-5.1)
[2022-05-01 08:14] VITALS: BP 116/74
[2022-05-01 09:18] VITALS: BP 114/60
[2022-05-01] MEDS: Doxycycline IV 100 MG in SODIUM CHLORIDE 0.9% 100 ML IV SCH ×2 (11:10→20:15)
[2022-05-01] MEDS: TAMSULOSIN HCL 0.4 MG CAP PO SCH ×2 (11:14→16:45)
[2022-05-01] MEDS: ASPIRIN 325 MG TAB PO SCH (11:14)
[2022-05-01] MEDS: DILTIAZEM HCL CR 120MG TAB PO SCH (11:18)
[2022-05-01 12:17] VITALS: BP 129/61
[2022-05-01 16:57] VITALS: BP 107/52
[2022-05-01] MEDS: MONTELUKAST SODIUM 10 MG TAB PO SCH (20:16)
[2022-05-02] MEDS: ALBUTEROL/IPRATROPIUM 3 ML NEB NEB SCH ×6 (03:10→23:15)
[2022-05-02] MEDS: METHYLPREDNISOLONE SOD SUCC 40 MG/ML VIAL 1ML IV SCH ×3 (05:58→21:47)
[2022-05-02] MEDS: SODIUM CHLORIDE 0.9% 1000ML 1,000 ML IV SCH ×4 (06:01→18:05)
[2022-05-02 06:08] LABS: BASOPHILS % 0.1 % (0.0-1.0); HEMATOCRIT 24.9 % (38.2-49.6); HEMOGLOBIN 7.5 g/dL (14.0-18.0); LYMPHOCYTES # (AUTO) 0.3 (1.0-3.2); LYMPHOCYTES % 3.3 % (18.0-39.1); MEAN CORPUSCULAR HGB CONC 30.1 g/dL (31-35); MEAN CORPUSCULAR VOLUME 86.5 fL (81-99); MONOCYTES # (AUTO) 0.4 (0.2-0.8); MONOCYTES % 4.1 % (4.4-11.3); NEUTROPHILS # (AUTO) 9.3 (2.1-6.9); NEUTROPHILS % 90.8 % (38.7-80.0); PLATELET COUNT 151 x10e3/uL (140-360); RED BLOOD COUNT 2.88 x10e6/uL (4.3-5.7); RED CELL DISTRIBUTION WIDTH 16.5 % (11.7-14.4)
[2022-05-02 06:29] LABS: ALBUMIN 2.1 g/dL (3.5-5.0); ALBUMIN/GLOBULIN RATIO 0.7 (0.8-2.0); ANION GAP 11.9 mmol/L (8-16); CALCIUM 8.4 mg/dL (8.4-10.2); CREATININE, SERUM 0.66 mg/dL (0.72-1.25); POTASSIUM 3.9 mmol/L (3.5-5.1)
[2022-05-02 06:48] VITALS: BP 107/52
[2022-05-02 07:33] VITALS: BP 116/74
[2022-05-02 08:12] VITALS: BP 103/65
[2022-05-02] MEDS: BENZONATATE 100 MG CAP PO SCH ×3 (08:53→21:47)
[2022-05-02] MEDS: DILTIAZEM HCL CR 120MG TAB PO SCH (08:54)
[2022-05-02] MEDS: ASPIRIN 325 MG TAB PO SCH (08:54)
[2022-05-02] MEDS: TAMSULOSIN HCL 0.4 MG CAP PO SCH ×2 (08:54→15:56)
[2022-05-02] MEDS: Doxycycline IV 100 MG in SODIUM CHLORIDE 0.9% 100 ML IV SCH ×2 (08:55→21:47)
[2022-05-02 12:08] VITALS: BP 117/59
[2022-05-02 16:05] VITALS: BP 115/54
[2022-05-02] MEDS ORDERED: FUROSEMIDE INJ 10 MG/ML 2 ML VIAL IV ONE (18:50)
[2022-05-02] MEDS: MONTELUKAST SODIUM 10 MG TAB PO SCH (21:47)
[2022-05-03] MEDS: ALBUTEROL/IPRATROPIUM 3 ML NEB NEB SCH ×6 (03:10→23:45)
[2022-05-03 05:31] LABS: BASOPHILS % 0.2 % (0.0-1.0); HEMATOCRIT 25.8 % (38.2-49.6); HEMOGLOBIN 7.8 g/dL (14.0-18.0); LYMPHOCYTES # (AUTO) 0.5 (1.0-3.2); LYMPHOCYTES % 4.6 % (18.0-39.1); MEAN CORPUSCULAR HEMOGLOBIN 25.5 pg (28-32); MEAN CORPUSCULAR HGB CONC 30.2 g/dL (31-35); MEAN CORPUSCULAR VOLUME 84.3 fL (81-99); MONOCYTES # (AUTO) 0.4 (0.2-0.8); MONOCYTES % 4.3 % (4.4-11.3); NEUTROPHILS # (AUTO) 8.7 (2.1-6.9); NEUTROPHILS % 84.6 % (38.7-80.0); RED BLOOD COUNT 3.06 x10e6/uL (4.3-5.7); RED CELL DISTRIBUTION WIDTH 16.3 % (11.7-14.4)
[2022-05-03 05:34] LABS: PLATELET COUNT 175 x10e3/uL (140-360)
[2022-05-03 05:53] LABS: ALBUMIN 2.2 g/dL (3.5-5.0); ALBUMIN/GLOBULIN RATIO 0.7 (0.8-2.0); ANION GAP 11.2 mmol/L (8-16); CALCIUM 8.3 mg/dL (8.4-10.2); CREATININE, SERUM 0.67 mg/dL (0.72-1.25); POTASSIUM 3.2 mmol/L (3.5-5.1)
[2022-05-03 05:59] VITALS: BP 115/54
[2022-05-03] MEDS: METHYLPREDNISOLONE SOD SUCC 40 MG/ML VIAL 1ML IV SCH ×3 (06:03→21:32)
[2022-05-03 08:25] VITALS: BP 129/81
[2022-05-03 08:29] LABS: LYMPHOCYTES % (MANUAL) 5 % (19-48); MONOCYTES % (MANUAL) 3 % (3.4-9.0); NEUTROPHILS % (MANUAL) 92 % (40-74)
[2022-05-03 08:30] LABS: PLATELET ESTIMATE ADEQUATE; PLATELET MORPHOLOGY COMMENT NORMAL; RBC MORPHOLOGY COMMENT NORMAL
[2022-05-03] MEDS: BENZONATATE 100 MG CAP PO SCH ×3 (08:38→20:05)
[2022-05-03] MEDS: ASPIRIN 325 MG TAB PO SCH (08:38)
[2022-05-03] MEDS: TAMSULOSIN HCL 0.4 MG CAP PO SCH ×2 (08:38→16:20)
[2022-05-03] MEDS: DILTIAZEM HCL CR 120MG TAB PO SCH (08:39)
[2022-05-03] MEDS: Doxycycline IV 100 MG in SODIUM CHLORIDE 0.9% 100 ML IV SCH (08:46)
[2022-05-03 08:47] VITALS: BP 129/81
[2022-05-03] MEDS ORDERED: POTASSIUM CHLORIDE 20 MEQ TAB CR PO ONE (10:30)
[2022-05-03 12:09] VITALS: BP 118/55
[2022-05-03 15:38] VITALS: BP 123/58
[2022-05-03 20:00] VITALS: BP 121/68
[2022-05-03] MEDS: MONTELUKAST SODIUM 10 MG TAB PO SCH (20:05)
[2022-05-03] MEDS: DOXYCYCLINE HYCLATE TABLET 100 MG TAB PO SCH (20:05)
[2022-05-04] VITALS (7 sets, daily range): BP systolic 118–143; BP diastolic 54–73
[2022-05-04] MEDS: ALBUTEROL/IPRATROPIUM 3 ML NEB NEB SCH ×6 (03:48→23:44)
[2022-05-04] MEDS: METHYLPREDNISOLONE SOD SUCC 40 MG/ML VIAL 1ML IV SCH ×3 (05:32→21:13)
[2022-05-04] MEDS ORDERED: POTASSIUM CHLORIDE 10MEQ EA PO ONE (06:00)
[2022-05-04] MEDS: ASPIRIN 325 MG TAB PO SCH (08:42)
[2022-05-04] MEDS: DOXYCYCLINE HYCLATE TABLET 100 MG TAB PO SCH ×2 (08:42→21:12)
[2022-05-04] MEDS: BENZONATATE 100 MG CAP PO SCH ×3 (08:42→21:12)
[2022-05-04] MEDS: DILTIAZEM HCL CR 120MG TAB PO SCH (08:42)
[2022-05-04] MEDS: TAMSULOSIN HCL 0.4 MG CAP PO SCH ×2 (08:43→17:00)
[2022-05-04] MEDS: FLUTICASONE PROPIONATE NASAL SPRAY NS SCH ×2 (10:56→17:00)
[2022-05-04] MEDS: MONTELUKAST SODIUM 10 MG TAB PO SCH (21:12)
[2022-05-05] VITALS (8 sets, daily range): BP systolic 116–140; BP diastolic 61–67
[2022-05-05] MEDS: ALBUTEROL/IPRATROPIUM 3 ML NEB NEB SCH ×6 (00:30→19:25)
[2022-05-05] MEDS: METHYLPREDNISOLONE SOD SUCC 40 MG/ML VIAL 1ML IV SCH ×3 (05:38→21:03)
[2022-05-05] MEDS: TAMSULOSIN HCL 0.4 MG CAP PO SCH ×2 (08:03→16:52)
[2022-05-05] MEDS: ASPIRIN 325 MG TAB PO SCH (08:04)
[2022-05-05] MEDS: DILTIAZEM HCL CR 120MG TAB PO SCH (08:04)
[2022-05-05] MEDS: DOXYCYCLINE HYCLATE TABLET 100 MG TAB PO SCH ×2 (08:04→20:04)
[2022-05-05] MEDS: BENZONATATE 100 MG CAP PO SCH ×3 (08:04→20:04)
[2022-05-05] MEDS: FLUTICASONE PROPIONATE NASAL SPRAY NS SCH ×2 (08:05→16:52)
[2022-05-05] MEDS: MONTELUKAST SODIUM 10 MG TAB PO SCH (20:04)
[2022-05-06] MEDS: ALBUTEROL/IPRATROPIUM 3 ML NEB NEB SCH ×6 (04:00→23:10)
[2022-05-06 05:10] VITALS: BP 110/74
[2022-05-06] MEDS: METHYLPREDNISOLONE SOD SUCC 40 MG/ML VIAL 1ML IV SCH ×3 (05:26→20:03)
[2022-05-06 05:49] LABS: BASOPHILS % 0.2 % (0.0-1.0); HEMATOCRIT 29.3 % (38.2-49.6); HEMOGLOBIN 8.8 g/dL (14.0-18.0); LYMPHOCYTES # (AUTO) 0.7 (1.0-3.2); MEAN CORPUSCULAR HEMOGLOBIN 25.5 pg (28-32); MEAN CORPUSCULAR VOLUME 84.9 fL (81-99); MONOCYTES # (AUTO) 0.5 (0.2-0.8); MONOCYTES % 3.3 % (4.4-11.3); NEUTROPHILS # (AUTO) 14.4 (2.1-6.9); NEUTROPHILS % 87.9 % (38.7-80.0); PLATELET COUNT 227 x10e3/uL (140-360); RED BLOOD COUNT 3.45 x10e6/uL (4.3-5.7); RED CELL DISTRIBUTION WIDTH 16.2 % (11.7-14.4)
[2022-05-06 06:15] LABS: ALBUMIN 2.4 g/dL (3.5-5.0); ALBUMIN/GLOBULIN RATIO 0.9 (0.8-2.0); ANION GAP 12.1 mmol/L (8-16); CALCIUM 8.2 mg/dL (8.4-10.2); CREATININE, SERUM 0.63 mg/dL (0.72-1.25); MAGNESIUM 2.1 MG/DL (1.3-2.1); POTASSIUM 4.1 mmol/L (3.5-5.1)
[2022-05-06 08:29] VITALS: BP 4/131
[2022-05-06 09:01] VITALS: BP 131/67
[2022-05-06] MEDS: FLUTICASONE PROPIONATE NASAL SPRAY NS SCH ×2 (10:35→17:43)
[2022-05-06] MEDS: ASPIRIN 325 MG TAB PO SCH (10:36)
[2022-05-06] MEDS: DOXYCYCLINE HYCLATE TABLET 100 MG TAB PO SCH ×2 (10:36→20:04)
[2022-05-06] MEDS: DILTIAZEM HCL CR 120MG TAB PO SCH (10:38)
[2022-05-06] MEDS: TAMSULOSIN HCL 0.4 MG CAP PO SCH ×2 (10:38→17:43)
[2022-05-06] MEDS: BENZONATATE 100 MG CAP PO SCH ×3 (10:38→20:04)
[2022-05-06 12:37] VITALS: BP 159/70
[2022-05-06 16:39] VITALS: BP 115/55
[2022-05-06 20:00] VITALS: BP 133/55
[2022-05-06] MEDS: MONTELUKAST SODIUM 10 MG TAB PO SCH (20:04)
[2022-05-07] VITALS: BP 138/64
[2022-05-07] MEDS: ALBUTEROL/IPRATROPIUM 3 ML NEB NEB SCH ×2 (03:00→06:51)
[2022-05-07 04:00] VITALS: BP 139/74
[2022-05-07] MEDS: METHYLPREDNISOLONE SOD SUCC 40 MG/ML VIAL 1ML IV SCH (05:52)
[2022-05-07 08:00] VITALS: BP 4/131
[2022-05-07 08:27] VITALS: BP 136/56
[2022-05-07] MEDS: FLUTICASONE PROPIONATE NASAL SPRAY NS SCH (09:32)
[2022-05-07] MEDS: DOXYCYCLINE HYCLATE TABLET 100 MG TAB PO SCH (09:32)
[2022-05-07] MEDS: ASPIRIN 325 MG TAB PO SCH (09:33)
[2022-05-07] MEDS: TAMSULOSIN HCL 0.4 MG CAP PO SCH (09:34)
[2022-05-07] MEDS: DILTIAZEM HCL CR 120MG TAB PO SCH (09:34)
[2022-05-07] MEDS: BENZONATATE 100 MG CAP PO SCH (09:34)
== END 2022-05-07 10:12 | disposition home or self-care (01) | DRG 193 ==
LOC: ER 08:14 → ERHOLD 09:53 → MED/SURG 10:48 → MED/SURG2 17:57
PROVIDERS: ADMIT Internal Medicine; ATTEND Internal Medicine
DX: J18.9 Pneumonia, unspecified organism (principal); J96.21 Acute and chronic respiratory failure with hypoxia; J44.1 Chronic obstructive pulmonary disease with (acute) exacerbation; I10 Essential (primary) hypertension; I48.91 Unspecified atrial fibrillation; K21.9 Gastro-esophageal reflux disease without esophagitis; N40.0 Benign prostatic hyperplasia without lower urinary tract symptoms; Z20.822 Contact with and (suspected) exposure to COVID-19; Z99.81 Dependence on supplemental oxygen; Z79.82 Long term (current) use of aspirin
CPT/HCPCS: 36415; 70220; 71045; 80048; 80053; 83605; 83735; 83880; 84484; 85025; 87040; 93005; 94799; 99252; 99284; J0696; J1100; J1885; J1940; J2920; J7030; J7050

== ENCOUNTER 2022-05-18 12:27 | Inpatient (IN) | payer MEDICARE ==
[2022-05-17] MEDS: IPRATROPIUM BROMIDE 0.02% 2.5 ML NEB NEB SCH (23:34)
[~2022-05-18] VITALS: Ht 177.8 cm; Wt 47.9 kg
[2022-05-18] MEDS ORDERED: DEXAMETHASONE SOD PHOS 10 MG/1 ML VIAL IV STA (12:42)
[2022-05-18] MEDS ORDERED: ALBUTEROL SULF 0.083% NEB SOLN 3 ML NEB NEB STA (12:42)
[2022-05-18] MEDS ORDERED: IPRATROPIUM BROMIDE 0.02% 2.5 ML NEB NEB ONE (12:45)
[2022-05-18 13:05] LABS: BASOPHILS % 0.1 % (0.0-1.0); EOSINOPHILS % 0.1 % (0.0-6.0); HEMATOCRIT 32.3 % (38.2-49.6); HEMOGLOBIN 9.5 g/dL (14.0-18.0); LYMPHOCYTES # (AUTO) 0.9 (1.0-3.2); LYMPHOCYTES % 5.3 % (18.0-39.1); MEAN CORPUSCULAR HEMOGLOBIN 25.6 pg (28-32); MEAN CORPUSCULAR HGB CONC 29.4 g/dL (31-35); MEAN CORPUSCULAR VOLUME 87.1 fL (81-99); MONOCYTES # (AUTO) 1.5 (0.2-0.8); MONOCYTES % 8.6 % (4.4-11.3); NEUTROPHILS # (AUTO) 14.9 (2.1-6.9); PLATELET COUNT 228 x10e3/uL (140-360); RED BLOOD COUNT 3.71 x10e6/uL (4.3-5.7); RED CELL DISTRIBUTION WIDTH 17.8 % (11.7-14.4)
[2022-05-18 13:31] LABS: ALBUMIN/GLOBULIN RATIO 0.9 (0.8-2.0); ANION GAP 12.5 mmol/L (8-16); CALCIUM 8.6 mg/dL (8.4-10.2); CREATININE, SERUM 0.68 mg/dL (0.72-1.25); POTASSIUM 4.5 mmol/L (3.5-5.1)
[2022-05-18] MEDS ORDERED: DICYCLOMINE HCL 20 MG/2 ML VIAL IM ONE (14:00)
[2022-05-18] MEDS ORDERED: LACTATED RINGER'S 1,000 ML INJ ONE (14:00)
[2022-05-18] MEDS ORDERED: IOPAMIDOL 370 MG/ML 100 ML INFUS..BTL INJ ONE (14:22)
[2022-05-18 16:37] VITALS: BP 145/71
[2022-05-18] MEDS ORDERED: FUROSEMIDE40 MG PO (16:41)
[2022-05-18 16:51] VITALS: BP 145/71
[2022-05-18] MEDS: TAMSULOSIN HCL 0.4 MG CAP PO SCH (17:35)
[2022-05-18] MEDS: METHYLPREDNISOLONE SOD SUCC 125 MG/2ML VIAL IV SCH (17:37)
[2022-05-18] MEDS ORDERED: FLONASE ALLERG9.9 ML INH (17:38)
[2022-05-18] MEDS ORDERED: ALBUTEROL/IPRATROPIUM 3 ML NEB NEB SCH (19:00)
[2022-05-18] MEDS: IPRATROPIUM BROMIDE 0.02% 2.5 ML NEB NEB SCH (19:25)
[2022-05-18] MEDS: ALBUTEROL SULF 0.083% NEB SOLN 3 ML NEB NEB SCH ×2 (19:25→23:34)
[2022-05-18 20:25] VITALS: BP 118/56
[2022-05-18] MEDS: MONTELUKAST SODIUM 10 MG TAB PO SCH (20:50)
[2022-05-18 21:55] VITALS: BP 118/56
[2022-05-18] MEDS ORDERED: METHYLPREDNISOLONE SOD SUCC 125 MG/2ML VIAL IV SCH (22:00)
[2022-05-19] VITALS (7 sets, daily range): BP systolic 114–137; BP diastolic 60–71
[2022-05-19] MEDS: ALBUTEROL SULF 0.083% NEB SOLN 3 ML NEB NEB SCH ×6 (03:00→23:30)
[2022-05-19] MEDS: IPRATROPIUM BROMIDE 0.02% 2.5 ML NEB NEB SCH ×6 (03:00→23:30)
[2022-05-19] MEDS: METHYLPREDNISOLONE SOD SUCC 125 MG/2ML VIAL IV SCH ×3 (03:22→23:50)
[2022-05-19 05:50] LABS: BASOPHILS % 0.1 % (0.0-1.0); HEMATOCRIT 26.9 % (38.2-49.6); HEMOGLOBIN 8.1 g/dL (14.0-18.0); LYMPHOCYTES # (AUTO) 0.2 (1.0-3.2); LYMPHOCYTES % 3.4 % (18.0-39.1); MEAN CORPUSCULAR HGB CONC 30.1 g/dL (31-35); MEAN CORPUSCULAR VOLUME 86.2 fL (81-99); MONOCYTES # (AUTO) 0.1 (0.2-0.8); MONOCYTES % 1.3 % (4.4-11.3); NEUTROPHILS # (AUTO) 6.8 (2.1-6.9); NEUTROPHILS % 94.2 % (38.7-80.0); PLATELET COUNT 183 x10e3/uL (140-360); RED BLOOD COUNT 3.12 x10e6/uL (4.3-5.7); RED CELL DISTRIBUTION WIDTH 17.6 % (11.7-14.4)
[2022-05-19 06:20] LABS: ANION GAP 11.9 mmol/L (8-16); CALCIUM 8.3 mg/dL (8.4-10.2); CREATININE, SERUM 0.54 mg/dL (0.72-1.25); POTASSIUM 3.9 mmol/L (3.5-5.1)
[2022-05-19] MEDS: PANTOPRAZOLE SOD 40 MG TABEC PO SCH (08:27)
[2022-05-19] MEDS: FUROSEMIDE 40 MG TAB PO SCH (08:27)
[2022-05-19] MEDS: ASPIRIN 325 MG TAB PO SCH (08:27)
[2022-05-19] MEDS: TAMSULOSIN HCL 0.4 MG CAP PO SCH ×2 (08:27→16:11)
[2022-05-19] MEDS: DILTIAZEM HCL ER 120 MG CAP PO SCH (08:27)
[2022-05-19] MEDS ORDERED: DILTIAZEM HCL 120 MG PO SCH (09:00)
[2022-05-19] MEDS ORDERED: HYDROCODONE/APAP 5MG-325MG TAB PO PRN (21:15)
[2022-05-19] MEDS: MONTELUKAST SODIUM 10 MG TAB PO SCH (23:50)
[2022-05-20] VITALS (8 sets, daily range): BP systolic 105–131; BP diastolic 55–72
[2022-05-20] MEDS ORDERED: DONNATAL/LIDOCAINE/MAALOX 30 ML SUSP PO STA (00:38)
[2022-05-20] MEDS ORDERED: BELLADONNA ALK/PHENOBARBITAL 5 ML UDC PO STA (00:42)
[2022-05-20] MEDS ORDERED: LIDOCAINE VISC 2% SOLN 15 ML UDC PO STA (00:43)
[2022-05-20] MEDS ORDERED: MAGNESIUM/ALUMINUM/SIMETHICONE 30 ML UDC PO STA (00:43)
[2022-05-20 00:59] LABS: % IRON SATURATION 6 % (15-50); IRON 17 ug/dL (65-175); TOTAL IRON BINDING CAPACITY 301 ug/dL (261-478); TRANSFERRIN 215 mg/dL (174-364)
[2022-05-20] MEDS ORDERED: CYCLOBENZAPRINE HCL 10 MG TAB PO STA (01:00)
[2022-05-20] MEDS: METHYLPREDNISOLONE SOD SUCC 125 MG/2ML VIAL IV SCH ×3 (03:36→20:19)
[2022-05-20] MEDS: ALBUTEROL SULF 0.083% NEB SOLN 3 ML NEB NEB SCH ×6 (03:40→23:05)
[2022-05-20] MEDS: IPRATROPIUM BROMIDE 0.02% 2.5 ML NEB NEB SCH ×6 (03:40→23:05)
[2022-05-20] MEDS: CYCLOBENZAPRINE HCL 10 MG TAB PO SCH ×3 (05:51→20:19)
[2022-05-20] MEDS: FUROSEMIDE 40 MG TAB PO SCH (09:21)
[2022-05-20] MEDS: TAMSULOSIN HCL 0.4 MG CAP PO SCH ×2 (09:21→17:00)
[2022-05-20] MEDS: ASPIRIN 325 MG TAB PO SCH (09:21)
[2022-05-20] MEDS: PANTOPRAZOLE SOD 40 MG TABEC PO SCH (09:21)
[2022-05-20] MEDS: DILTIAZEM HCL ER 120 MG CAP PO SCH (09:22)
[2022-05-20] MEDS: BALSAM PERU/CASTOR OIL 60 GM OINT...G. TP SCH (17:02)
[2022-05-20] MEDS: MONTELUKAST SODIUM 10 MG TAB PO SCH (20:19)
[2022-05-21] VITALS (8 sets, daily range): BP systolic 115–151; BP diastolic 62–75
[2022-05-21] MEDS: ALBUTEROL SULF 0.083% NEB SOLN 3 ML NEB NEB SCH ×6 (00:15→19:25)
[2022-05-21] MEDS: IPRATROPIUM BROMIDE 0.02% 2.5 ML NEB NEB SCH ×6 (00:15→19:25)
[2022-05-21] MEDS: METHYLPREDNISOLONE SOD SUCC 125 MG/2ML VIAL IV SCH ×3 (03:21→19:00)
[2022-05-21] MEDS: CYCLOBENZAPRINE HCL 10 MG TAB PO SCH ×3 (05:29→23:29)
[2022-05-21 07:12] LABS: BASOPHILS % 0.1 % (0.0-1.0); HEMATOCRIT 28.8 % (38.2-49.6); HEMOGLOBIN 8.6 g/dL (14.0-18.0); LYMPHOCYTES # (AUTO) 0.3 (1.0-3.2); LYMPHOCYTES % 2.4 % (18.0-39.1); MEAN CORPUSCULAR HEMOGLOBIN 25.7 pg (28-32); MEAN CORPUSCULAR HGB CONC 29.9 g/dL (31-35); MONOCYTES # (AUTO) 0.3 (0.2-0.8); MONOCYTES % 3.1 % (4.4-11.3); NEUTROPHILS # (AUTO) 9.7 (2.1-6.9); NEUTROPHILS % 93.9 % (38.7-80.0); PLATELET COUNT 145 x10e3/uL (140-360); RED BLOOD COUNT 3.35 x10e6/uL (4.3-5.7); RED CELL DISTRIBUTION WIDTH 17.9 % (11.7-14.4)
[2022-05-21] MEDS ORDERED: BISACODYL 10 MG SUPP PR ONE (08:00)
[2022-05-21 08:18] LABS: ALBUMIN 2.7 g/dL (3.5-5.0); ANION GAP 11.1 mmol/L (8-16); CALCIUM 8.4 mg/dL (8.4-10.2); CREATININE, SERUM 0.67 mg/dL (0.72-1.25); MAGNESIUM 2.2 MG/DL (1.3-2.1); POTASSIUM 4.1 mmol/L (3.5-5.1)
[2022-05-21] MEDS: ASPIRIN 325 MG TAB PO SCH (08:57)
[2022-05-21] MEDS: FUROSEMIDE 40 MG TAB PO SCH (08:57)
[2022-05-21] MEDS: DILTIAZEM HCL ER 120 MG CAP PO SCH (08:57)
[2022-05-21] MEDS: PANTOPRAZOLE SOD 40 MG TABEC PO SCH (08:57)
[2022-05-21] MEDS: BALSAM PERU/CASTOR OIL 60 GM OINT...G. TP SCH (08:58)
[2022-05-21] MEDS: TAMSULOSIN HCL 0.4 MG CAP PO SCH ×2 (08:58→16:41)
[2022-05-21] MEDS: IRON SUCROSE 100 MG in SODIUM CHLORIDE 0.9% 100 ML IV SCH (09:42)
[2022-05-21] MEDS: SALMETEROL/FLUTICASONE 250/50 INH SCH (19:25)
[2022-05-21] MEDS: MONTELUKAST SODIUM 10 MG TAB PO SCH (23:29)
[2022-05-22] VITALS (9 sets, daily range): BP systolic 105–132; BP diastolic 60–80
[2022-05-22] MEDS ORDERED: METHYLPREDNISOLONE SOD SUCC 125 MG/2ML VIAL IV SCH (03:00)
[2022-05-22] MEDS: ALBUTEROL SULF 0.083% NEB SOLN 3 ML NEB NEB SCH ×6 (04:10→23:20)
[2022-05-22] MEDS: IPRATROPIUM BROMIDE 0.02% 2.5 ML NEB NEB SCH ×6 (04:10→23:20)
[2022-05-22] MEDS: CYCLOBENZAPRINE HCL 10 MG TAB PO SCH ×3 (06:23→23:48)
[2022-05-22] MEDS: SALMETEROL/FLUTICASONE 250/50 INH SCH ×2 (07:00→19:15)
[2022-05-22] MEDS: ASPIRIN 325 MG TAB PO SCH (08:50)
[2022-05-22] MEDS: TAMSULOSIN HCL 0.4 MG CAP PO SCH ×2 (08:51→19:31)
[2022-05-22] MEDS: PANTOPRAZOLE SOD 40 MG TABEC PO SCH (08:51)
[2022-05-22] MEDS: FUROSEMIDE 40 MG TAB PO SCH (08:51)
[2022-05-22] MEDS: DILTIAZEM HCL ER 120 MG CAP PO SCH (08:52)
[2022-05-22] MEDS: BALSAM PERU/CASTOR OIL 60 GM OINT...G. TP SCH (08:53)
[2022-05-22] MEDS: IRON SUCROSE 100 MG in SODIUM CHLORIDE 0.9% 100 ML IV SCH (09:49)
[2022-05-22] MEDS ORDERED: PROPOFOL IV EMULSION 10 MG/ML 20 ML VIAL ONE (13:00)
[2022-05-22] MEDS ORDERED: PHENYLEPHRINE HCL 1% 10 MG/ML VIAL ONE (18:01)
[2022-05-22] MEDS: FLUCONAZOLE 200 MG/100 ML 100 ML IV SCH (18:15)
[2022-05-22] MEDS: MONTELUKAST SODIUM 10 MG TAB PO SCH (23:48)
[2022-05-22] MEDS: METHYLPREDNISOLONE SOD SUCC 125 MG/2ML VIAL IV SCH (23:49)
[2022-05-23] VITALS (7 sets, daily range): BP systolic 110–118; BP diastolic 62–67
[2022-05-23] MEDS: IPRATROPIUM BROMIDE 0.02% 2.5 ML NEB NEB SCH ×6 (03:20→21:54)
[2022-05-23] MEDS: ALBUTEROL SULF 0.083% NEB SOLN 3 ML NEB NEB SCH ×6 (03:20→21:54)
[2022-05-23 05:23] LABS: BASOPHILS % 0.1 % (0.0-1.0); HEMATOCRIT 30.1 % (38.2-49.6); LYMPHOCYTES # (AUTO) 0.2 (1.0-3.2); LYMPHOCYTES % 1.1 % (18.0-39.1); MEAN CORPUSCULAR HEMOGLOBIN 25.7 pg (28-32); MEAN CORPUSCULAR HGB CONC 29.9 g/dL (31-35); MONOCYTES # (AUTO) 0.3 (0.2-0.8); MONOCYTES % 2.3 % (4.4-11.3); NEUTROPHILS # (AUTO) 13.7 (2.1-6.9); NEUTROPHILS % 95.7 % (38.7-80.0); PLATELET COUNT 109 x10e3/uL (140-360); RED CELL DISTRIBUTION WIDTH 17.2 % (11.7-14.4)
[2022-05-23 05:50] LABS: ALBUMIN 2.7 g/dL (3.5-5.0); ALBUMIN/GLOBULIN RATIO 1.2 (0.8-2.0); ANION GAP 12.6 mmol/L (8-16); CALCIUM 8.4 mg/dL (8.4-10.2); CREATININE, SERUM 0.59 mg/dL (0.72-1.25); MAGNESIUM 2.1 MG/DL (1.3-2.1)
[2022-05-23 05:54] LABS: POTASSIUM 2.6 mmol/L (3.5-5.1)
[2022-05-23] MEDS: CYCLOBENZAPRINE HCL 10 MG TAB PO SCH ×3 (06:51→21:23)
[2022-05-23] MEDS: METHYLPREDNISOLONE SOD SUCC 125 MG/2ML VIAL IV SCH ×3 (06:52→21:22)
[2022-05-23] MEDS ORDERED: POTASSIUM CHLORIDE 20 MEQ TAB CR PO ONE ×2 (07:00→10:30)
[2022-05-23] MEDS: SALMETEROL/FLUTICASONE 250/50 INH SCH ×2 (07:07→19:02)
[2022-05-23] MEDS ORDERED: FLUCONAZOLE 100 MG TAB PO SCH (09:00)
[2022-05-23] MEDS: PANTOPRAZOLE SOD 40 MG TABEC PO SCH (09:25)
[2022-05-23] MEDS: ASPIRIN 325 MG TAB PO SCH (09:25)
[2022-05-23] MEDS: TAMSULOSIN HCL 0.4 MG CAP PO SCH ×2 (09:26→16:43)
[2022-05-23] MEDS: FUROSEMIDE 40 MG TAB PO SCH (09:26)
[2022-05-23] MEDS: DILTIAZEM HCL ER 120 MG CAP PO SCH (09:26)
[2022-05-23] MEDS: BALSAM PERU/CASTOR OIL 60 GM OINT...G. TP SCH (09:34)
[2022-05-23] MEDS: IRON SUCROSE 100 MG in SODIUM CHLORIDE 0.9% 100 ML IV SCH (10:28)
[2022-05-23] MEDS ORDERED: MAGNESIUM HYDROXIDE 30 ML UDC PO ONE (16:30)
[2022-05-23] MEDS ORDERED: DICYCLOMINE HCL 20 MG/2 ML VIAL IM ONE (16:30)
[2022-05-23] MEDS: FLUCONAZOLE 200 MG/100 ML 100 ML IV SCH (16:52)
[2022-05-23] MEDS: MONTELUKAST SODIUM 10 MG TAB PO SCH (21:22)
[2022-05-24] VITALS (8 sets, daily range): BP systolic 95–134; BP diastolic 53–83
[2022-05-24] MEDS: IPRATROPIUM BROMIDE 0.02% 2.5 ML NEB NEB SCH ×6 (01:35→20:50)
[2022-05-24] MEDS: ALBUTEROL SULF 0.083% NEB SOLN 3 ML NEB NEB SCH ×5 (01:45→20:50)
[2022-05-24] MEDS: CYCLOBENZAPRINE HCL 10 MG TAB PO SCH ×3 (05:40→21:10)
[2022-05-24 05:48] LABS: BASOPHILS % 0.1 % (0.0-1.0); HEMATOCRIT 30.6 % (38.2-49.6); LYMPHOCYTES # (AUTO) 0.2 (1.0-3.2); LYMPHOCYTES % 0.8 % (18.0-39.1); MEAN CORPUSCULAR HEMOGLOBIN 25.8 pg (28-32); MEAN CORPUSCULAR HGB CONC 29.4 g/dL (31-35); MEAN CORPUSCULAR VOLUME 87.7 fL (81-99); MONOCYTES # (AUTO) 0.8 (0.2-0.8); MONOCYTES % 3.1 % (4.4-11.3); NEUTROPHILS # (AUTO) 25.8 (2.1-6.9); NEUTROPHILS % 95.2 % (38.7-80.0); PLATELET COUNT 115 x10e3/uL (140-360); RED BLOOD COUNT 3.49 x10e6/uL (4.3-5.7); RED CELL DISTRIBUTION WIDTH 17.6 % (11.7-14.4)
[2022-05-24] MEDS: SALMETEROL/FLUTICASONE 250/50 INH SCH (06:59)
[2022-05-24 07:08] LABS: ALBUMIN 2.7 g/dL (3.5-5.0); ALBUMIN/GLOBULIN RATIO 1.1 (0.8-2.0); ANION GAP 12.3 mmol/L (8-16); CALCIUM 8.6 mg/dL (8.4-10.2); CREATININE, SERUM 0.7 mg/dL (0.72-1.25); POTASSIUM 4.3 mmol/L (3.5-5.1)
[2022-05-24] MEDS ORDERED: MAGNESIUM HYDROXIDE 30 ML UDC PO ONE (07:15)
[2022-05-24] MEDS: PANTOPRAZOLE SOD 40 MG TABEC PO SCH (07:59)
[2022-05-24 08:16] LABS: NEUTROPHILS % (MANUAL) 100 % (40-74)
[2022-05-24 08:17] LABS: PLATELET ESTIMATE SLIGHTLY DECREASED; PLATELET MORPHOLOGY COMMENT NORMAL; RBC MORPHOLOGY COMMENT NORMAL
[2022-05-24] MEDS: ASPIRIN 325 MG TAB PO SCH (09:13)
[2022-05-24] MEDS: TAMSULOSIN HCL 0.4 MG CAP PO SCH ×2 (09:13→16:59)
[2022-05-24] MEDS: FUROSEMIDE 40 MG TAB PO SCH (09:13)
[2022-05-24] MEDS: DILTIAZEM HCL ER 120 MG CAP PO SCH (09:14)
[2022-05-24] MEDS: BALSAM PERU/CASTOR OIL 60 GM OINT...G. TP SCH (09:15)
[2022-05-24] MEDS ORDERED: SODIUM CHLORIDE 0.9% 250ML 250 ML ONE (09:24)
[2022-05-24] MEDS: IRON SUCROSE 100 MG in SODIUM CHLORIDE 0.9% 100 ML IV SCH (11:36)
[2022-05-24] MEDS: METHYLPREDNISOLONE SOD SUCC 125 MG/2ML VIAL IV SCH ×2 (15:16→21:08)
[2022-05-24] MEDS: FLUCONAZOLE 200 MG/100 ML 100 ML IV SCH (17:10)
[2022-05-24] MEDS: MONTELUKAST SODIUM 10 MG TAB PO SCH (21:08)
[2022-05-25] VITALS (7 sets, daily range): BP systolic 105–146; BP diastolic 53–74
[2022-05-25] MEDS: ALBUTEROL SULF 0.083% NEB SOLN 3 ML NEB NEB SCH ×7 (01:30→23:30)
[2022-05-25] MEDS: IPRATROPIUM BROMIDE 0.02% 2.5 ML NEB NEB SCH ×6 (04:10→23:30)
[2022-05-25 04:59] LABS: HEMATOCRIT 28.5 % (38.2-49.6); HEMOGLOBIN 8.4 g/dL (14.0-18.0); LYMPHOCYTES # (AUTO) 0.2 (1.0-3.2); LYMPHOCYTES % 1.2 % (18.0-39.1); MEAN CORPUSCULAR HEMOGLOBIN 25.8 pg (28-32); MEAN CORPUSCULAR HGB CONC 29.5 g/dL (31-35); MEAN CORPUSCULAR VOLUME 87.7 fL (81-99); MONOCYTES # (AUTO) 0.5 (0.2-0.8); MONOCYTES % 2.9 % (4.4-11.3); NEUTROPHILS # (AUTO) 15.5 (2.1-6.9); NEUTROPHILS % 94.5 % (38.7-80.0); PLATELET COUNT 106 x10e3/uL (140-360); RED BLOOD COUNT 3.25 x10e6/uL (4.3-5.7); RED CELL DISTRIBUTION WIDTH 17.6 % (11.7-14.4)
[2022-05-25 05:21] LABS: ALBUMIN 2.5 g/dL (3.5-5.0); ANION GAP 10.1 mmol/L (8-16); CALCIUM 8.3 mg/dL (8.4-10.2); CREATININE, SERUM 0.64 mg/dL (0.72-1.25); POTASSIUM 4.1 mmol/L (3.5-5.1)
[2022-05-25] MEDS: CYCLOBENZAPRINE HCL 10 MG TAB PO SCH ×3 (06:20→22:25)
[2022-05-25] MEDS: METHYLPREDNISOLONE SOD SUCC 125 MG/2ML VIAL IV SCH ×3 (06:20→22:26)
[2022-05-25] MEDS: SALMETEROL/FLUTICASONE 250/50 INH SCH ×2 (07:18→19:12)
[2022-05-25] MEDS: IRON SUCROSE 100 MG in SODIUM CHLORIDE 0.9% 100 ML IV SCH (09:00)
[2022-05-25] MEDS: ASPIRIN 325 MG TAB PO SCH (09:25)
[2022-05-25] MEDS: DILTIAZEM HCL ER 120 MG CAP PO SCH (09:25)
[2022-05-25] MEDS: TAMSULOSIN HCL 0.4 MG CAP PO SCH ×2 (09:25→16:42)
[2022-05-25] MEDS: PANTOPRAZOLE SOD 40 MG TABEC PO SCH (09:25)
[2022-05-25] MEDS: BALSAM PERU/CASTOR OIL 60 GM OINT...G. TP SCH (09:25)
[2022-05-25] MEDS: FUROSEMIDE 40 MG TAB PO SCH (09:25)
[2022-05-25] MEDS: FLUCONAZOLE 200 MG/100 ML 100 ML IV SCH (16:42)
[2022-05-25] MEDS: MONTELUKAST SODIUM 10 MG TAB PO SCH (22:25)
[2022-05-26] VITALS (7 sets, daily range): BP systolic 110–134; BP diastolic 59–89
[2022-05-26] MEDS: IPRATROPIUM BROMIDE 0.02% 2.5 ML NEB NEB SCH ×6 (03:10→23:40)
[2022-05-26] MEDS: ALBUTEROL SULF 0.083% NEB SOLN 3 ML NEB NEB SCH ×6 (03:10→23:40)
[2022-05-26] MEDS: CYCLOBENZAPRINE HCL 10 MG TAB PO SCH ×3 (06:05→21:04)
[2022-05-26] MEDS: METHYLPREDNISOLONE SOD SUCC 125 MG/2ML VIAL IV SCH ×3 (06:05→21:04)
[2022-05-26 06:21] LABS: BASOPHILS % 0.1 % (0.0-1.0); HEMATOCRIT 31.7 % (38.2-49.6); HEMOGLOBIN 9.4 g/dL (14.0-18.0); LYMPHOCYTES # (AUTO) 0.3 (1.0-3.2); LYMPHOCYTES % 1.6 % (18.0-39.1); MEAN CORPUSCULAR HEMOGLOBIN 26.1 pg (28-32); MEAN CORPUSCULAR HGB CONC 29.7 g/dL (31-35); MEAN CORPUSCULAR VOLUME 88.1 fL (81-99); MONOCYTES # (AUTO) 0.5 (0.2-0.8); MONOCYTES % 3.2 % (4.4-11.3); NEUTROPHILS # (AUTO) 15.6 (2.1-6.9); NEUTROPHILS % 93.2 % (38.7-80.0); PLATELET COUNT 127 x10e3/uL (140-360); RED CELL DISTRIBUTION WIDTH 17.7 % (11.7-14.4)
[2022-05-26 06:48] LABS: ALBUMIN 2.6 g/dL (3.5-5.0); ANION GAP 12.9 mmol/L (8-16); CALCIUM 8.7 mg/dL (8.4-10.2); CREATININE, SERUM 0.63 mg/dL (0.72-1.25); POTASSIUM 3.9 mmol/L (3.5-5.1)
[2022-05-26] MEDS: SALMETEROL/FLUTICASONE 250/50 INH SCH ×2 (07:00→19:25)
[2022-05-26] MEDS ORDERED: SODIUM CHLORIDE 0.9% 100 ML ONE (08:00)
[2022-05-26] MEDS: FUROSEMIDE 40 MG TAB PO SCH (08:47)
[2022-05-26] MEDS: TAMSULOSIN HCL 0.4 MG CAP PO SCH ×2 (08:47→16:15)
[2022-05-26] MEDS: ASPIRIN 325 MG TAB PO SCH (08:47)
[2022-05-26] MEDS: PANTOPRAZOLE SOD 40 MG TABEC PO SCH (08:48)
[2022-05-26] MEDS: DILTIAZEM HCL ER 120 MG CAP PO SCH (08:48)
[2022-05-26] MEDS: BALSAM PERU/CASTOR OIL 60 GM OINT...G. TP SCH (09:01)
[2022-05-26] MEDS: FLUCONAZOLE 200 MG/100 ML 100 ML IV SCH (17:53)
[2022-05-26] MEDS: MONTELUKAST SODIUM 10 MG TAB PO SCH (21:04)
[2022-05-27] VITALS (7 sets, daily range): BP systolic 116–148; BP diastolic 59–97
[2022-05-27] MEDS: ALBUTEROL SULF 0.083% NEB SOLN 3 ML NEB NEB SCH ×6 (01:25→19:50)
[2022-05-27] MEDS: IPRATROPIUM BROMIDE 0.02% 2.5 ML NEB NEB SCH ×6 (01:25→19:50)
[2022-05-27] MEDS: METHYLPREDNISOLONE SOD SUCC 125 MG/2ML VIAL IV SCH ×3 (05:11→21:11)
[2022-05-27] MEDS: CYCLOBENZAPRINE HCL 10 MG TAB PO SCH ×3 (05:11→21:11)
[2022-05-27] MEDS: SALMETEROL/FLUTICASONE 250/50 INH SCH ×2 (06:25→19:50)
[2022-05-27] MEDS: DILTIAZEM HCL ER 120 MG CAP PO SCH (09:34)
[2022-05-27] MEDS: FUROSEMIDE 40 MG TAB PO SCH (09:34)
[2022-05-27] MEDS: ASPIRIN 325 MG TAB PO SCH (09:34)
[2022-05-27] MEDS: TAMSULOSIN HCL 0.4 MG CAP PO SCH ×2 (09:34→17:08)
[2022-05-27] MEDS: BALSAM PERU/CASTOR OIL 60 GM OINT...G. TP SCH (09:37)
[2022-05-27] MEDS: PANTOPRAZOLE SOD 40 MG TABEC PO SCH (09:37)
[2022-05-27] MEDS: FLUCONAZOLE 200 MG/100 ML 100 ML IV SCH (17:08)
[2022-05-27] MEDS: BUDESONIDE 0.5MG/2 ML NEB INH SCH (19:50)
[2022-05-27] MEDS: MONTELUKAST SODIUM 10 MG TAB PO SCH (21:10)
[2022-05-28] VITALS: BP 107/73
[2022-05-28] MEDS: IPRATROPIUM BROMIDE 0.02% 2.5 ML NEB NEB SCH ×6 (03:00→23:05)
[2022-05-28] MEDS: ALBUTEROL SULF 0.083% NEB SOLN 3 ML NEB NEB SCH ×6 (03:00→23:05)
[2022-05-28 04:00] VITALS: BP 115/55
[2022-05-28] MEDS: CYCLOBENZAPRINE HCL 10 MG TAB PO SCH ×3 (05:13→20:57)
[2022-05-28] MEDS: METHYLPREDNISOLONE SOD SUCC 125 MG/2ML VIAL IV SCH ×3 (05:17→20:58)
[2022-05-28] MEDS: BUDESONIDE 0.5MG/2 ML NEB INH SCH ×2 (06:00→19:35)
[2022-05-28] MEDS: SALMETEROL/FLUTICASONE 250/50 INH SCH ×2 (06:18→19:35)
[2022-05-28 08:34] VITALS: BP 106/54
[2022-05-28] MEDS: FUROSEMIDE 40 MG TAB PO SCH (09:00)
[2022-05-28] MEDS: DILTIAZEM HCL ER 120 MG CAP PO SCH (09:00)
[2022-05-28] MEDS: PANTOPRAZOLE SOD 40 MG TABEC PO SCH (09:05)
[2022-05-28] MEDS: TAMSULOSIN HCL 0.4 MG CAP PO SCH ×2 (09:05→17:37)
[2022-05-28] MEDS: ASPIRIN 325 MG TAB PO SCH (09:05)
[2022-05-28] MEDS: LORAZEPAM INJ 2 MG/ML VIAL IV PRN (09:50)
[2022-05-28] MEDS: BALSAM PERU/CASTOR OIL 60 GM OINT...G. TP SCH (11:33)
[2022-05-28 12:30] VITALS: BP 121/67
[2022-05-28 15:53] VITALS: BP 131/67
[2022-05-28] MEDS: FLUCONAZOLE 200 MG/100 ML 100 ML IV SCH (17:38)
[2022-05-28 20:55] VITALS: BP 115/57
[2022-05-28] MEDS: MONTELUKAST SODIUM 10 MG TAB PO SCH (20:57)
[2022-05-29] VITALS (10 sets, daily range): BP systolic 109–135; BP diastolic 52–72
[2022-05-29] MEDS: ALBUTEROL SULF 0.083% NEB SOLN 3 ML NEB NEB SCH ×6 (02:40→23:20)
[2022-05-29] MEDS: IPRATROPIUM BROMIDE 0.02% 2.5 ML NEB NEB SCH ×6 (02:40→23:20)
[2022-05-29] MEDS: CYCLOBENZAPRINE HCL 10 MG TAB PO SCH ×3 (04:42→21:16)
[2022-05-29] MEDS: BUDESONIDE 0.5MG/2 ML NEB INH SCH ×2 (06:00→19:35)
[2022-05-29] MEDS: METHYLPREDNISOLONE SOD SUCC 125 MG/2ML VIAL IV SCH ×3 (06:03→21:17)
[2022-05-29] MEDS: SALMETEROL/FLUTICASONE 250/50 INH SCH ×2 (06:10→19:35)
[2022-05-29 06:27] LABS: BASOPHILS % 0.1 % (0.0-1.0); HEMATOCRIT 29.4 % (38.2-49.6); HEMOGLOBIN 8.8 g/dL (14.0-18.0); LYMPHOCYTES # (AUTO) 0.1 (1.0-3.2); LYMPHOCYTES % 0.7 % (18.0-39.1); MEAN CORPUSCULAR HEMOGLOBIN 26.5 pg (28-32); MEAN CORPUSCULAR HGB CONC 29.9 g/dL (31-35); MEAN CORPUSCULAR VOLUME 88.6 fL (81-99); MONOCYTES # (AUTO) 0.4 (0.2-0.8); MONOCYTES % 2.1 % (4.4-11.3); NEUTROPHILS # (AUTO) 18.4 (2.1-6.9); PLATELET COUNT 78 x10e3/uL (140-360); RED BLOOD COUNT 3.32 x10e6/uL (4.3-5.7); RED CELL DISTRIBUTION WIDTH 18.2 % (11.7-14.4)
[2022-05-29] MEDS: ASPIRIN 325 MG TAB PO SCH (08:47)
[2022-05-29] MEDS: TAMSULOSIN HCL 0.4 MG CAP PO SCH ×2 (08:47→17:55)
[2022-05-29] MEDS: PANTOPRAZOLE SOD 40 MG TABEC PO SCH (08:47)
[2022-05-29] MEDS: DILTIAZEM HCL ER 120 MG CAP PO SCH (08:47)
[2022-05-29] MEDS: FUROSEMIDE 40 MG TAB PO SCH (08:47)
[2022-05-29] MEDS: BALSAM PERU/CASTOR OIL 60 GM OINT...G. TP SCH (08:52)
[2022-05-29] MEDS: MAALOX/LIDOCAINE/BENADRYL/NYST 30 ML BTL PO SCH ×2 (15:00→21:18)
[2022-05-29] MEDS: FLUCONAZOLE 200 MG/100 ML 100 ML IV SCH (17:56)
[2022-05-29] MEDS: MONTELUKAST SODIUM 10 MG TAB PO SCH (21:17)
[2022-05-30] VITALS (7 sets, daily range): BP systolic 107–136; BP diastolic 53–72
[2022-05-30] MEDS: IPRATROPIUM BROMIDE 0.02% 2.5 ML NEB NEB SCH ×6 (03:02→23:50)
[2022-05-30] MEDS: ALBUTEROL SULF 0.083% NEB SOLN 3 ML NEB NEB SCH ×6 (03:02→23:50)
[2022-05-30] MEDS ORDERED: FLUCONAZOLE 200 MG/100 ML 100 ML IV ONE (05:00)
[2022-05-30 05:41] LABS: BASOPHILS % 0.1 % (0.0-1.0); HEMATOCRIT 28.6 % (38.2-49.6); HEMOGLOBIN 8.5 g/dL (14.0-18.0); LYMPHOCYTES # (AUTO) 0.1 (1.0-3.2); LYMPHOCYTES % 0.6 % (18.0-39.1); MEAN CORPUSCULAR HEMOGLOBIN 26.2 pg (28-32); MEAN CORPUSCULAR HGB CONC 29.7 g/dL (31-35); MONOCYTES # (AUTO) 0.4 (0.2-0.8); MONOCYTES % 2.1 % (4.4-11.3); NEUTROPHILS # (AUTO) 18.1 (2.1-6.9); NEUTROPHILS % 96.2 % (38.7-80.0); PLATELET COUNT 61 x10e3/uL (140-360); RED BLOOD COUNT 3.25 x10e6/uL (4.3-5.7); RED CELL DISTRIBUTION WIDTH 18.2 % (11.7-14.4)
[2022-05-30] MEDS: METHYLPREDNISOLONE SOD SUCC 125 MG/2ML VIAL IV SCH (05:47)
[2022-05-30] MEDS: CYCLOBENZAPRINE HCL 10 MG TAB PO SCH ×3 (05:47→20:43)
[2022-05-30 06:18] LABS: ALBUMIN 1.9 g/dL (3.5-5.0); ALBUMIN/GLOBULIN RATIO 0.6 (0.8-2.0); ANION GAP 10.7 mmol/L (8-16); CALCIUM 8.6 mg/dL (8.4-10.2); CREATININE, SERUM 0.54 mg/dL (0.72-1.25)
[2022-05-30 06:44] LABS: POTASSIUM 2.7 mmol/L (3.5-5.1)
[2022-05-30] MEDS: SALMETEROL/FLUTICASONE 250/50 INH SCH (07:00)
[2022-05-30] MEDS: BUDESONIDE 0.5MG/2 ML NEB INH SCH ×2 (07:00→19:42)
[2022-05-30] MEDS ORDERED: POTASSIUM CHLORIDE 20 MEQ TAB CR PO ONE ×2 (07:30→11:00)
[2022-05-30] MEDS: TAMSULOSIN HCL 0.4 MG CAP PO SCH ×2 (08:32→17:57)
[2022-05-30] MEDS: ASPIRIN 325 MG TAB PO SCH (08:32)
[2022-05-30] MEDS: FUROSEMIDE 40 MG TAB PO SCH (08:33)
[2022-05-30] MEDS: DILTIAZEM HCL ER 120 MG CAP PO SCH (08:33)
[2022-05-30] MEDS: BALSAM PERU/CASTOR OIL 60 GM OINT...G. TP SCH (08:33)
[2022-05-30] MEDS: MAALOX/LIDOCAINE/BENADRYL/NYST 30 ML BTL PO SCH ×3 (08:33→20:56)
[2022-05-30] MEDS: ACETYLCYSTEINE 200 MG/ML 4ML VIAL INH SCH ×2 (10:54→19:42)
[2022-05-30] MEDS: METHYLPREDNISOLONE SOD SUCC 40 MG/ML VIAL 1ML IV SCH ×2 (14:07→20:44)
[2022-05-30] MEDS: FLUCONAZOLE 200 MG/100 ML 100 ML IV SCH (17:57)
[2022-05-30] MEDS: MONTELUKAST SODIUM 10 MG TAB PO SCH (20:43)
[2022-05-30] MEDS: LORAZEPAM INJ 2 MG/ML VIAL IV PRN (20:53)
[2022-05-31] VITALS (7 sets, daily range): BP systolic 117–140; BP diastolic 51–68
[2022-05-31] MEDS: IPRATROPIUM BROMIDE 0.02% 2.5 ML NEB NEB SCH ×6 (03:35→23:10)
[2022-05-31] MEDS: ALBUTEROL SULF 0.083% NEB SOLN 3 ML NEB NEB SCH ×6 (03:35→23:10)
[2022-05-31 04:55] LABS: BASOPHILS # (AUTO) 0.1 (0.0-0.1); BASOPHILS % 0.3 % (0.0-1.0); HEMATOCRIT 30.4 % (38.2-49.6); HEMOGLOBIN 9.1 g/dL (14.0-18.0); LYMPHOCYTES # (AUTO) 0.1 (1.0-3.2); LYMPHOCYTES % 0.4 % (18.0-39.1); MEAN CORPUSCULAR HEMOGLOBIN 26.8 pg (28-32); MEAN CORPUSCULAR HGB CONC 29.9 g/dL (31-35); MEAN CORPUSCULAR VOLUME 89.4 fL (81-99); MONOCYTES # (AUTO) 0.2 (0.2-0.8); MONOCYTES % 1.2 % (4.4-11.3); NEUTROPHILS # (AUTO) 19.6 (2.1-6.9); NEUTROPHILS % 97.1 % (38.7-80.0); PLATELET COUNT 59 x10e3/uL (140-360); RED CELL DISTRIBUTION WIDTH 18.4 % (11.7-14.4)
[2022-05-31 05:16] LABS: ALBUMIN 1.8 g/dL (3.5-5.0); ALBUMIN/GLOBULIN RATIO 0.6 (0.8-2.0); ANION GAP 13.3 mmol/L (8-16); CREATININE, SERUM 0.53 mg/dL (0.72-1.25); MAGNESIUM 1.8 MG/DL (1.3-2.1); POTASSIUM 3.3 mmol/L (3.5-5.1)
[2022-05-31] MEDS: METHYLPREDNISOLONE SOD SUCC 40 MG/ML VIAL 1ML IV SCH ×3 (06:03→21:06)
[2022-05-31] MEDS: CYCLOBENZAPRINE HCL 10 MG TAB PO SCH ×3 (06:03→21:14)
[2022-05-31] MEDS: BUDESONIDE 0.5MG/2 ML NEB INH SCH ×2 (06:47→19:50)
[2022-05-31] MEDS: ACETYLCYSTEINE 200 MG/ML 4ML VIAL INH SCH ×2 (06:47→19:30)
[2022-05-31 08:47] LABS: ANISOCYTOSIS SLIGHT; BAND NEUTROPHILS % (MANUAL) 1 %; HYPOCHROMASIA SLIGHT; LYMPHOCYTES % (MANUAL) 1 % (19-48); MONOCYTES % (MANUAL) 1 % (3.4-9.0); NEUTROPHILS % (MANUAL) 97 % (40-74); PLATELET ESTIMATE MODERATELY DECREASED; PLATELET MORPHOLOGY COMMENT NORMAL; RBC MORPHOLOGY COMMENT NORMAL
[2022-05-31] MEDS: TAMSULOSIN HCL 0.4 MG CAP PO SCH ×2 (09:13→16:17)
[2022-05-31] MEDS: DILTIAZEM HCL ER 120 MG CAP PO SCH (09:17)
[2022-05-31] MEDS: FLUCONAZOLE 200 MG/100 ML 100 ML IV SCH (09:17)
[2022-05-31] MEDS: ASPIRIN 325 MG TAB PO SCH (09:17)
[2022-05-31] MEDS: MAALOX/LIDOCAINE/BENADRYL/NYST 30 ML BTL PO SCH ×3 (09:20→21:00)
[2022-05-31] MEDS: FUROSEMIDE 40 MG TAB PO SCH (09:20)
[2022-05-31] MEDS: BALSAM PERU/CASTOR OIL 60 GM OINT...G. TP SCH (09:27)
[2022-05-31] MEDS: MONTELUKAST SODIUM 10 MG TAB PO SCH (21:14)
[2022-06-01] VITALS (29 sets, daily range): BP systolic 109–134; BP diastolic 54–71
[2022-06-01 01:27] LABS: ABG HCO3 44 mmol/L (22-26); ABG PCO2 57 mmHg (35-45); ABG PH 7.49 (7.35-7.45); ABG PO2 65 mmHg (80-105); ABG TCO2 45
[2022-06-01] MEDS: IPRATROPIUM BROMIDE 0.02% 2.5 ML NEB NEB SCH ×6 (03:15→23:30)
[2022-06-01] MEDS: ALBUTEROL SULF 0.083% NEB SOLN 3 ML NEB NEB SCH ×6 (03:15→23:30)
[2022-06-01 05:33] LABS: BASOPHILS % 0.1 % (0.0-1.0); HEMATOCRIT 30.5 % (38.2-49.6); HEMOGLOBIN 8.9 g/dL (14.0-18.0); LYMPHOCYTES # (AUTO) 0.1 (1.0-3.2); LYMPHOCYTES % 0.4 % (18.0-39.1); MEAN CORPUSCULAR HEMOGLOBIN 26.3 pg (28-32); MEAN CORPUSCULAR HGB CONC 29.2 g/dL (31-35); MEAN CORPUSCULAR VOLUME 90.2 fL (81-99); MONOCYTES # (AUTO) 0.2 (0.2-0.8); MONOCYTES % 0.9 % (4.4-11.3); NEUTROPHILS # (AUTO) 20.4 (2.1-6.9); PLATELET COUNT 55 x10e3/uL (140-360); RED BLOOD COUNT 3.38 x10e6/uL (4.3-5.7); RED CELL DISTRIBUTION WIDTH 18.9 % (11.7-14.4)
[2022-06-01] MEDS: CYCLOBENZAPRINE HCL 10 MG TAB PO SCH ×3 (05:52→20:12)
[2022-06-01 05:57] LABS: ALBUMIN 1.6 g/dL (3.5-5.0); ALBUMIN/GLOBULIN RATIO 0.5 (0.8-2.0); ANION GAP 14.1 mmol/L (8-16); CALCIUM 9.1 mg/dL (8.4-10.2); CREATININE, SERUM 0.57 mg/dL (0.72-1.25); POTASSIUM 3.1 mmol/L (3.5-5.1)
[2022-06-01] MEDS: BUDESONIDE 0.5MG/2 ML NEB INH SCH ×2 (06:30→20:05)
[2022-06-01] MEDS: METHYLPREDNISOLONE SOD SUCC 40 MG/ML VIAL 1ML IV SCH ×3 (06:34→22:35)
[2022-06-01] MEDS: ACETYLCYSTEINE 200 MG/ML 4ML VIAL INH SCH ×2 (07:00→20:05)
[2022-06-01 07:30] LABS: LYMPHOCYTES % (MANUAL) 1 % (19-48); MONOCYTES % (MANUAL) 1 % (3.4-9.0); NEUTROPHILS % (MANUAL) 98 % (40-74)
[2022-06-01] MEDS ORDERED: POTASSIUM CHLORIDE 20MEQ/100ML 100 ML IV ONE ×2 (07:30→09:30)
[2022-06-01 07:31] LABS: PLATELET ESTIMATE MODERATELY DECREASED
[2022-06-01 07:36] LABS: ANISOCYTOSIS SLIGHT; RBC MORPHOLOGY COMMENT NORMAL
[2022-06-01] MEDS: MAALOX/LIDOCAINE/BENADRYL/NYST 30 ML BTL PO SCH (09:00)
[2022-06-01] MEDS: TAMSULOSIN HCL 0.4 MG CAP PO SCH ×2 (09:00→15:56)
[2022-06-01] MEDS: ASPIRIN 325 MG TAB PO SCH (09:00)
[2022-06-01] MEDS: DILTIAZEM HCL ER 120 MG CAP PO SCH ×2 (09:00→15:57)
[2022-06-01] MEDS: BALSAM PERU/CASTOR OIL 60 GM OINT...G. TP SCH (09:00)
[2022-06-01] MEDS: FLUCONAZOLE 200 MG/100 ML 100 ML IV SCH (09:00)
[2022-06-01] MEDS ORDERED: Vancomycin IV 1 GM in SODIUM CHLORIDE 0.9% 250ML 250 ML IV ONE (12:15)
[2022-06-01 13:39] LABS: ABG HCO3 45 mmol/L (22-26); ABG PCO2 56 mmHg (35-45); ABG PH 7.52 (7.35-7.45); ABG PO2 74 mmHg (80-105); ABG TCO2 47
[2022-06-01] MEDS: MONTELUKAST SODIUM 10 MG TAB PO SCH (20:12)
[2022-06-01] MEDS ORDERED: DEXMEDETOMIDINE 400MCG/NS100ML 100 ML IV PRN (22:30)
[2022-06-02] VITALS (19 sets, daily range): BP systolic 108–132; BP diastolic 48–75
[2022-06-02] MEDS: IPRATROPIUM BROMIDE 0.02% 2.5 ML NEB NEB SCH ×5 (02:40→19:40)
[2022-06-02] MEDS: ALBUTEROL SULF 0.083% NEB SOLN 3 ML NEB NEB SCH ×5 (02:40→19:40)
[2022-06-02] MEDS: METHYLPREDNISOLONE SOD SUCC 40 MG/ML VIAL 1ML IV SCH ×3 (05:49→22:13)
[2022-06-02] MEDS: CYCLOBENZAPRINE HCL 10 MG TAB PO SCH ×3 (05:49→20:47)
[2022-06-02] MEDS: ACETYLCYSTEINE 200 MG/ML 4ML VIAL INH SCH ×2 (07:10→19:40)
[2022-06-02] MEDS: BUDESONIDE 0.5MG/2 ML NEB INH SCH ×2 (07:25→19:40)
[2022-06-02] MEDS: TAMSULOSIN HCL 0.4 MG CAP PO SCH ×2 (08:43→17:24)
[2022-06-02] MEDS: BALSAM PERU/CASTOR OIL 60 GM OINT...G. TP SCH (08:44)
[2022-06-02] MEDS: FUROSEMIDE 20 MG TAB PO SCH (08:44)
[2022-06-02] MEDS: DILTIAZEM HCL ER 120 MG CAP PO SCH (08:44)
[2022-06-02] MEDS: FLUCONAZOLE 200 MG/100 ML 100 ML IV SCH (08:44)
[2022-06-02 11:37] LABS: BASOPHILS % 0.1 % (0.0-1.0); HEMATOCRIT 29.3 % (38.2-49.6); HEMOGLOBIN 8.4 g/dL (14.0-18.0); LYMPHOCYTES # (AUTO) 0.2 (1.0-3.2); MEAN CORPUSCULAR HEMOGLOBIN 26.4 pg (28-32); MEAN CORPUSCULAR HGB CONC 28.7 g/dL (31-35); MEAN CORPUSCULAR VOLUME 92.1 fL (81-99); MONOCYTES # (AUTO) 0.2 (0.2-0.8); MONOCYTES % 0.9 % (4.4-11.3); NEUTROPHILS # (AUTO) 15.5 (2.1-6.9); NEUTROPHILS % 96.9 % (38.7-80.0); PLATELET COUNT 68 x10e3/uL (140-360); RED BLOOD COUNT 3.18 x10e6/uL (4.3-5.7); RED CELL DISTRIBUTION WIDTH 18.6 % (11.7-14.4)
[2022-06-02 12:10] LABS: ANION GAP 13.8 mmol/L (8-16); CALCIUM 8.7 mg/dL (8.4-10.2); CREATININE, SERUM 0.56 mg/dL (0.72-1.25); POTASSIUM 3.8 mmol/L (3.5-5.1)
[2022-06-02] MEDS: MONTELUKAST SODIUM 10 MG TAB PO SCH (20:47)
[2022-06-03] VITALS (15 sets, daily range): BP systolic 114–141; BP diastolic 46–71
[2022-06-03] MEDS: IPRATROPIUM BROMIDE 0.02% 2.5 ML NEB NEB SCH ×7 (00:25→23:00)
[2022-06-03] MEDS: ALBUTEROL SULF 0.083% NEB SOLN 3 ML NEB NEB SCH ×7 (00:25→23:00)
[2022-06-03] MEDS: METHYLPREDNISOLONE SOD SUCC 40 MG/ML VIAL 1ML IV SCH ×3 (06:09→19:40)
[2022-06-03] MEDS: CYCLOBENZAPRINE HCL 10 MG TAB PO SCH ×3 (06:09→19:16)
[2022-06-03] MEDS: BUDESONIDE 0.5MG/2 ML NEB INH SCH ×2 (07:18→19:35)
[2022-06-03] MEDS: ACETYLCYSTEINE 200 MG/ML 4ML VIAL INH SCH ×2 (07:18→19:25)
[2022-06-03] MEDS: FLUCONAZOLE 200 MG/100 ML 100 ML IV SCH (08:13)
[2022-06-03] MEDS: FUROSEMIDE 20 MG TAB PO SCH (08:14)
[2022-06-03] MEDS: TAMSULOSIN HCL 0.4 MG CAP PO SCH ×2 (08:14→16:35)
[2022-06-03] MEDS: DILTIAZEM HCL ER 120 MG CAP PO SCH (08:14)
[2022-06-03] MEDS: BALSAM PERU/CASTOR OIL 60 GM OINT...G. TP SCH (08:15)
[2022-06-03] MEDS: MEROPENEM 1 GM in SODIUM CHLORIDE 0.9% 100 ML IV SCH ×2 (13:22→19:40)
[2022-06-03] MEDS: MONTELUKAST SODIUM 10 MG TAB PO SCH (19:40)
[2022-06-04] VITALS (15 sets, daily range): BP systolic 120–137; BP diastolic 58–74
[2022-06-04] MEDS: ALBUTEROL SULF 0.083% NEB SOLN 3 ML NEB NEB SCH ×6 (03:00→23:10)
[2022-06-04] MEDS: IPRATROPIUM BROMIDE 0.02% 2.5 ML NEB NEB SCH ×6 (03:00→23:10)
[2022-06-04] MEDS: BALSAM PERU/CASTOR OIL 60 GM OINT...G. TP SCH (04:22)
[2022-06-04 04:54] LABS: BASOPHILS % 0.2 % (0.0-1.0); HEMATOCRIT 28.1 % (38.2-49.6); HEMOGLOBIN 8.5 g/dL (14.0-18.0); LYMPHOCYTES # (AUTO) 0.3 (1.0-3.2); LYMPHOCYTES % 1.8 % (18.0-39.1); MEAN CORPUSCULAR HGB CONC 30.2 g/dL (31-35); MEAN CORPUSCULAR VOLUME 89.2 fL (81-99); MONOCYTES # (AUTO) 0.6 (0.2-0.8); MONOCYTES % 3.3 % (4.4-11.3); NEUTROPHILS # (AUTO) 16.6 (2.1-6.9); NEUTROPHILS % 89.7 % (38.7-80.0); PLATELET COUNT 85 x10e3/uL (140-360); RED BLOOD COUNT 3.15 x10e6/uL (4.3-5.7); RED CELL DISTRIBUTION WIDTH 18.1 % (11.7-14.4)
[2022-06-04] MEDS: MEROPENEM 1 GM in SODIUM CHLORIDE 0.9% 100 ML IV SCH ×3 (05:26→19:56)
[2022-06-04] MEDS: METHYLPREDNISOLONE SOD SUCC 40 MG/ML VIAL 1ML IV SCH ×3 (05:26→19:55)
[2022-06-04] MEDS: CYCLOBENZAPRINE HCL 10 MG TAB PO SCH ×3 (05:26→19:55)
[2022-06-04] MEDS: BUDESONIDE 0.5MG/2 ML NEB INH SCH ×2 (07:25→19:25)
[2022-06-04] MEDS: ACETYLCYSTEINE 200 MG/ML 4ML VIAL INH SCH ×2 (07:25→19:00)
[2022-06-04] MEDS: DILTIAZEM HCL ER 120 MG CAP PO SCH (08:23)
[2022-06-04] MEDS: TAMSULOSIN HCL 0.4 MG CAP PO SCH ×2 (08:23→16:26)
[2022-06-04] MEDS: FUROSEMIDE 20 MG TAB PO SCH (08:24)
[2022-06-04] MEDS: FLUCONAZOLE 200 MG/100 ML 100 ML IV SCH (08:24)
[2022-06-04] MEDS: DEXTROSE 5% 1,000 ML IV SCH (10:51)
[2022-06-04] MEDS: MONTELUKAST SODIUM 10 MG TAB PO SCH (19:55)
[2022-06-05] VITALS (20 sets, daily range): BP systolic 103–145; BP diastolic 59–73
[2022-06-05] MEDS: DEXTROSE 5% 1,000 ML IV SCH ×2 (01:12→22:06)
[2022-06-05] MEDS: IPRATROPIUM BROMIDE 0.02% 2.5 ML NEB NEB SCH ×6 (03:00→23:48)
[2022-06-05] MEDS: ALBUTEROL SULF 0.083% NEB SOLN 3 ML NEB NEB SCH ×6 (03:00→23:48)
[2022-06-05 04:51] LABS: BASOPHILS % 0.2 % (0.0-1.0); HEMATOCRIT 27.9 % (38.2-49.6); HEMOGLOBIN 8.3 g/dL (14.0-18.0); LYMPHOCYTES # (AUTO) 0.5 (1.0-3.2); LYMPHOCYTES % 2.4 % (18.0-39.1); MEAN CORPUSCULAR HEMOGLOBIN 26.2 pg (28-32); MEAN CORPUSCULAR HGB CONC 29.7 g/dL (31-35); MONOCYTES # (AUTO) 0.5 (0.2-0.8); MONOCYTES % 2.4 % (4.4-11.3); NEUTROPHILS # (AUTO) 17.8 (2.1-6.9); NEUTROPHILS % 89.5 % (38.7-80.0); RED BLOOD COUNT 3.17 x10e6/uL (4.3-5.7); RED CELL DISTRIBUTION WIDTH 17.9 % (11.7-14.4)
[2022-06-05 04:53] LABS: PLATELET COUNT 85 x10e3/uL (140-360)
[2022-06-05 05:15] LABS: ALBUMIN 1.8 g/dL (3.5-5.0); ALBUMIN/GLOBULIN RATIO 0.6 (0.8-2.0); ANION GAP 10.6 mmol/L (8-16); CALCIUM 8.2 mg/dL (8.4-10.2); CREATININE, SERUM 0.47 mg/dL (0.72-1.25); MAGNESIUM 1.7 MG/DL (1.3-2.1)
[2022-06-05 05:16] LABS: POTASSIUM 2.6 mmol/L (3.5-5.1)
[2022-06-05] MEDS ORDERED: POTASSIUM CHLORIDE 20 MEQ TAB CR PO STA (05:19)
[2022-06-05] MEDS: CYCLOBENZAPRINE HCL 10 MG TAB PO SCH ×2 (06:04→18:18)
[2022-06-05] MEDS: METHYLPREDNISOLONE SOD SUCC 40 MG/ML VIAL 1ML IV SCH ×2 (06:04→12:17)
[2022-06-05] MEDS: MEROPENEM 1 GM in SODIUM CHLORIDE 0.9% 100 ML IV SCH ×2 (06:05→12:17)
[2022-06-05] MEDS: BUDESONIDE 0.5MG/2 ML NEB INH SCH ×2 (07:14→19:55)
[2022-06-05] MEDS: ACETYLCYSTEINE 200 MG/ML 4ML VIAL INH SCH (07:14)
[2022-06-05] MEDS ORDERED: POTASSIUM CHLORIDE 20 MEQ TAB CR PO SCH (09:00)
[2022-06-05 09:24] LABS: LYMPHOCYTES % (MANUAL) 1 % (19-48); MONOCYTES % (MANUAL) 3 % (3.4-9.0); NEUTROPHILS % (MANUAL) 96 % (40-74); NUCLEATED RED BLOOD CELLS 1; PLATELET ESTIMATE MODERATELY DECREASED; PLATELET MORPHOLOGY COMMENT NORMAL; RBC MORPHOLOGY COMMENT NORMAL
[2022-06-05] MEDS: TAMSULOSIN HCL 0.4 MG CAP PO SCH ×2 (09:53→18:18)
[2022-06-05] MEDS: DILTIAZEM HCL ER 120 MG CAP PO SCH (09:54)
[2022-06-05] MEDS: FLUCONAZOLE 200 MG/100 ML 100 ML IV SCH (09:57)
[2022-06-05] MEDS: BALSAM PERU/CASTOR OIL 60 GM OINT...G. TP SCH (09:58)
[2022-06-05] MEDS: THEOPHYLLINE 200 MG TABCR PO SCH (12:18)
[2022-06-05] MEDS: MONTELUKAST SODIUM 10 MG TAB PO SCH (20:59)
[2022-06-06] VITALS (15 sets, daily range): BP systolic 97–152; BP diastolic 63–102
[2022-06-06] MEDS: ALBUTEROL SULF 0.083% NEB SOLN 3 ML NEB NEB SCH ×6 (03:45→23:00)
[2022-06-06] MEDS: IPRATROPIUM BROMIDE 0.02% 2.5 ML NEB NEB SCH ×6 (03:45→23:00)
[2022-06-06 04:50] LABS: BASOPHILS % 0.2 % (0.0-1.0); HEMATOCRIT 31.9 % (38.2-49.6); HEMOGLOBIN 9.3 g/dL (14.0-18.0); LYMPHOCYTES # (AUTO) 0.4 (1.0-3.2); LYMPHOCYTES % 1.7 % (18.0-39.1); MEAN CORPUSCULAR HEMOGLOBIN 26.3 pg (28-32); MEAN CORPUSCULAR HGB CONC 29.2 g/dL (31-35); MEAN CORPUSCULAR VOLUME 90.4 fL (81-99); MONOCYTES # (AUTO) 0.4 (0.2-0.8); MONOCYTES % 1.7 % (4.4-11.3); NEUTROPHILS # (AUTO) 19.6 (2.1-6.9); NEUTROPHILS % 92.2 % (38.7-80.0); PLATELET COUNT 81 x10e3/uL (140-360); RED BLOOD COUNT 3.53 x10e6/uL (4.3-5.7); RED CELL DISTRIBUTION WIDTH 18.6 % (11.7-14.4)
[2022-06-06 05:13] LABS: ALBUMIN 1.8 g/dL (3.5-5.0); ALBUMIN/GLOBULIN RATIO 0.6 (0.8-2.0); ANION GAP 13.3 mmol/L (8-16); CALCIUM 8.3 mg/dL (8.4-10.2); CREATININE, SERUM 0.52 mg/dL (0.72-1.25); POTASSIUM 4.3 mmol/L (3.5-5.1)
[2022-06-06] MEDS: BUDESONIDE 0.5MG/2 ML NEB INH SCH ×2 (07:00→19:35)
[2022-06-06] MEDS: BALSAM PERU/CASTOR OIL 60 GM OINT...G. TP SCH (09:00)
[2022-06-06] MEDS: CYCLOBENZAPRINE HCL 10 MG TAB PO SCH ×2 (10:15→16:40)
[2022-06-06] MEDS: DILTIAZEM HCL ER 120 MG CAP PO SCH (10:15)
[2022-06-06] MEDS: THEOPHYLLINE 200 MG TABCR PO SCH (10:15)
[2022-06-06] MEDS: TAMSULOSIN HCL 0.4 MG CAP PO SCH ×2 (10:15→16:39)
[2022-06-06] MEDS: METHYLPREDNISOLONE SOD SUCC 40 MG/ML VIAL 1ML IV SCH (15:00)
[2022-06-06] MEDS: KCL 20 MEQ PACKET/ ORAL SOLN NG SCH (15:01)
[2022-06-06] MEDS: DEXTROSE 5% 1,000 ML IV SCH (18:27)
[2022-06-06] MEDS: MONTELUKAST SODIUM 10 MG TAB PO SCH (21:36)
[2022-06-07] VITALS (10 sets, daily range): BP systolic 119–144; BP diastolic 64–104
[2022-06-07] MEDS: ALBUTEROL SULF 0.083% NEB SOLN 3 ML NEB NEB SCH ×6 (02:50→22:55)
[2022-06-07] MEDS: IPRATROPIUM BROMIDE 0.02% 2.5 ML NEB NEB SCH ×6 (03:00→22:55)
[2022-06-07 04:55] LABS: BASOPHILS % 0.2 % (0.0-1.0); HEMATOCRIT 32.9 % (38.2-49.6); HEMOGLOBIN 9.7 g/dL (14.0-18.0); LYMPHOCYTES # (AUTO) 0.2 (1.0-3.2); MEAN CORPUSCULAR HEMOGLOBIN 26.5 pg (28-32); MEAN CORPUSCULAR HGB CONC 29.5 g/dL (31-35); MEAN CORPUSCULAR VOLUME 89.9 fL (81-99); MONOCYTES # (AUTO) 0.2 (0.2-0.8); MONOCYTES % 0.9 % (4.4-11.3); NEUTROPHILS # (AUTO) 20.1 (2.1-6.9); NEUTROPHILS % 95.4 % (38.7-80.0); PLATELET COUNT 76 x10e3/uL (140-360); RED BLOOD COUNT 3.66 x10e6/uL (4.3-5.7); RED CELL DISTRIBUTION WIDTH 18.5 % (11.7-14.4)
[2022-06-07 05:13] LABS: ALBUMIN 1.9 g/dL (3.5-5.0); ALBUMIN/GLOBULIN RATIO 0.6 (0.8-2.0); CALCIUM 8.5 mg/dL (8.4-10.2); CREATININE, SERUM 0.55 mg/dL (0.72-1.25)
[2022-06-07] MEDS ORDERED: TIOTROPIUM 18 MCG INH POWDER INH SCH (06:00)
[2022-06-07] MEDS: BUDESONIDE 0.5MG/2 ML NEB INH SCH ×2 (06:50→19:15)
[2022-06-07] MEDS: METHYLPREDNISOLONE SOD SUCC 40 MG/ML VIAL 1ML IV SCH (08:23)
[2022-06-07] MEDS: KCL 20 MEQ PACKET/ ORAL SOLN NG SCH (08:23)
[2022-06-07] MEDS: THEOPHYLLINE 200 MG TABCR PO SCH (08:24)
[2022-06-07] MEDS: CYCLOBENZAPRINE HCL 10 MG TAB PO SCH ×2 (08:24→16:12)
[2022-06-07] MEDS: DILTIAZEM HCL ER 120 MG CAP PO SCH (08:25)
[2022-06-07] MEDS: BALSAM PERU/CASTOR OIL 60 GM OINT...G. TP SCH (08:25)
[2022-06-07] MEDS: TAMSULOSIN HCL 0.4 MG CAP PO SCH ×2 (08:25→16:12)
[2022-06-07] MEDS: DEXTROSE 5% 1,000 ML IV SCH (14:44)
[2022-06-07] MEDS: MONTELUKAST SODIUM 10 MG TAB PO SCH (20:31)
[2022-06-08] VITALS (48 sets, daily range): BP systolic 47–147; BP diastolic 31–104
[2022-06-08] MEDS: ALBUTEROL SULF 0.083% NEB SOLN 3 ML NEB NEB SCH ×6 (02:55→22:35)
[2022-06-08] MEDS: IPRATROPIUM BROMIDE 0.02% 2.5 ML NEB NEB SCH ×6 (02:55→22:35)
[2022-06-08] MEDS: BUDESONIDE 0.5MG/2 ML NEB INH SCH ×2 (07:20→19:05)
[2022-06-08] MEDS: DILTIAZEM HCL ER 120 MG CAP PO SCH (08:57)
[2022-06-08] MEDS: CYCLOBENZAPRINE HCL 10 MG TAB PO SCH ×2 (08:57→17:00)
[2022-06-08] MEDS: TAMSULOSIN HCL 0.4 MG CAP PO SCH ×2 (08:57→17:18)
[2022-06-08] MEDS: KCL 20 MEQ PACKET/ ORAL SOLN NG SCH (08:57)
[2022-06-08] MEDS: THEOPHYLLINE 200 MG TABCR PO SCH (08:58)
[2022-06-08 09:09] LABS: BASOPHILS # (AUTO) 0.2 (0.0-0.1); BASOPHILS % 0.5 % (0.0-1.0); HEMATOCRIT 34.5 % (38.2-49.6); HEMOGLOBIN 10.3 g/dL (14.0-18.0); LYMPHOCYTES # (AUTO) 0.5 (1.0-3.2); LYMPHOCYTES % 1.5 % (18.0-39.1); MEAN CORPUSCULAR HEMOGLOBIN 26.9 pg (28-32); MEAN CORPUSCULAR HGB CONC 29.9 g/dL (31-35); MEAN CORPUSCULAR VOLUME 90.1 fL (81-99); MONOCYTES # (AUTO) 0.9 (0.2-0.8); MONOCYTES % 2.4 % (4.4-11.3); NEUTROPHILS # (AUTO) 33.1 (2.1-6.9); NEUTROPHILS % 92.4 % (38.7-80.0); PLATELET COUNT 101 x10e3/uL (140-360); RED BLOOD COUNT 3.83 x10e6/uL (4.3-5.7); RED CELL DISTRIBUTION WIDTH 18.8 % (11.7-14.4)
[2022-06-08 09:27] LABS: ALBUMIN 2.1 g/dL (3.5-5.0); ALBUMIN/GLOBULIN RATIO 0.7 (0.8-2.0); ANION GAP 13.9 mmol/L (8-16); CALCIUM 8.5 mg/dL (8.4-10.2); CREATININE, SERUM 0.63 mg/dL (0.72-1.25); POTASSIUM 4.9 mmol/L (3.5-5.1)
[2022-06-08] MEDS ORDERED: NOREPINEPHRINE 8 MG/D5W 250 ML 250 ML ONE (10:10)
[2022-06-08] MEDS ORDERED: SODIUM CHLORIDE 0.9% 1000ML 1,000 ML ONE ×2 (10:11→11:18)
[2022-06-08 10:30] LABS: ANISOCYTOSIS MODERATE; BAND NEUTROPHILS % (MANUAL) 2 %; LYMPHOCYTES % (MANUAL) 1 % (19-48); MONOCYTES % (MANUAL) 1 % (3.4-9.0); NEUTROPHILS % (MANUAL) 96 % (40-74); PLATELET ESTIMATE SLIGHTLY DECREASED; PLATELET MORPHOLOGY COMMENT NORMAL; RBC MORPHOLOGY COMMENT ABNORMAL
[2022-06-08] MEDS ORDERED: SODIUM CHLORIDE 0.9% 500ML 500 ML IV ONE ×3 (10:30→14:00)
[2022-06-08 10:32] LABS: HYPOCHROMASIA MODERATE
[2022-06-08] MEDS: BALSAM PERU/CASTOR OIL 60 GM OINT...G. TP SCH (10:53)
[2022-06-08] MEDS: NOREPINEPHRINE 8 MG/D5W 250 ML 250 ML IV SCH ×2 (10:56→20:04)
[2022-06-08] MEDS ORDERED: DEXTROSE 5%/0.9% SOD CHL 1,000 ML IV SCH (11:30)
[2022-06-08] MEDS ORDERED: VASOPRESSIN 60 UNIT in DEXTROSE 5% 50ML 57 ML IV SCH (11:30)
[2022-06-08] MEDS ORDERED: SODIUM CHLORIDE 0.9% 1000ML 1,000 ML IV ONE (12:00)
[2022-06-08 12:47] LABS: ABG HCO3 36 mmol/L (22-26); ABG PCO2 45 mmHg (35-45); ABG PH 7.51 (7.35-7.45); ABG PO2 85 mmHg (80-105); ABG TCO2 38
[2022-06-08 12:53] LABS: ABG PCO2 33 mmHg (35-45); ABG PH 7.41 (7.35-7.45)
[2022-06-08 12:54] LABS: ABG HCO3 32 mmol/L (22-26); ABG PO2 116 mmHg (80-105); ABG TCO2 33
[2022-06-08 13:21] LABS: BASOPHILS # (AUTO) 0.1 (0.0-0.1); BASOPHILS % 0.2 % (0.0-1.0); HEMOGLOBIN 9.2 g/dL (14.0-18.0); LYMPHOCYTES # (AUTO) 0.6 (1.0-3.2); LYMPHOCYTES % 1.5 % (18.0-39.1); MEAN CORPUSCULAR HEMOGLOBIN 27.1 pg (28-32); MEAN CORPUSCULAR HGB CONC 29.7 g/dL (31-35); MEAN CORPUSCULAR VOLUME 91.2 fL (81-99); MONOCYTES # (AUTO) 0.8 (0.2-0.8); MONOCYTES % 2.2 % (4.4-11.3); NEUTROPHILS # (AUTO) 34.1 (2.1-6.9); NEUTROPHILS % 92.9 % (38.7-80.0); PLATELET COUNT 91 x10e3/uL (140-360); RED CELL DISTRIBUTION WIDTH 19.2 % (11.7-14.4)
[2022-06-08 13:35] LABS: ANION GAP 11.5 mmol/L (8-16); CALCIUM 7.1 mg/dL (8.4-10.2); CREATININE, SERUM 0.63 mg/dL (0.72-1.25); POTASSIUM 4.5 mmol/L (3.5-5.1)
[2022-06-08] MEDS: VASOPRESSIN 60 UNIT in DEXTROSE 5% 50ML 57 ML IV SCH (15:56)
[2022-06-08] MEDS: FENTANYL 2000MCG/NS 250 250 ML IV PRN (15:58)
[2022-06-08] MEDS: MIDAZOLAM HCL 5MG/ML 10ML VIAL 100 ML IV PRN ×2 (15:59→20:50)
[2022-06-08] MEDS ORDERED: MAGNESIUM HYDROXIDE 30 ML UDC PO ONE (16:15)
[2022-06-08] MEDS: METHYLPREDNISOLONE SOD SUCC 40 MG/ML VIAL 1ML IV SCH (17:18)
[2022-06-08] MEDS: ENOXAPARIN SOD INJ 40 MG/0.4 ML SYR SC SCH (17:18)
[2022-06-08] MEDS ORDERED: ACETAMINOPHEN 325 MG TAB PO PRN (19:45)
[2022-06-08 20:41] LABS: ANION GAP 12.4 mmol/L (8-16); CALCIUM 7.4 mg/dL (8.4-10.2); CREATININE, SERUM 0.68 mg/dL (0.72-1.25)
[2022-06-08] MEDS: MONTELUKAST SODIUM 10 MG TAB PO SCH (20:43)
[2022-06-08 20:46] LABS: POTASSIUM 5.4 mmol/L (3.5-5.1)
[2022-06-08 22:09] LABS: ABG PH 7.29 (7.35-7.45)
[2022-06-08 22:10] LABS: ABG PCO2 66 mmHg (35-45); ABG PO2 204 mmHg (80-105)
[2022-06-08 22:11] LABS: ABG HCO3 32 mmol/L (22-26); ABG TCO2 3
[2022-06-08] MEDS ORDERED: DEXTROSE 50% SYRINGE 50 ML IV STA (22:57)
[2022-06-08] MEDS ORDERED: CALCIUM GLUC 1 G/50 ML NACL 50 ML IV ONE (23:00)
[2022-06-08] MEDS ORDERED: INSULIN REGULAR, HUMAN 100 UNIT/1 ML IV ONE (23:00)
[2022-06-09] VITALS (85 sets, daily range): BP systolic 76–172; BP diastolic 54–118
[2022-06-09] MEDS: VASOPRESSIN 60 UNIT in DEXTROSE 5% 50ML 57 ML IV SCH (00:42)
[2022-06-09] MEDS: MIDAZOLAM HCL 5MG/ML 10ML VIAL 100 ML IV PRN ×3 (02:26→20:39)
[2022-06-09] MEDS: IPRATROPIUM BROMIDE 0.02% 2.5 ML NEB NEB SCH ×6 (02:30→23:50)
[2022-06-09] MEDS: ALBUTEROL SULF 0.083% NEB SOLN 3 ML NEB NEB SCH ×6 (02:35→23:50)
[2022-06-09] MEDS: NOREPINEPHRINE 8 MG/D5W 250 ML 250 ML IV SCH ×2 (03:09→11:40)
[2022-06-09 05:07] LABS: BASOPHILS # (AUTO) 0.1 (0.0-0.1); BASOPHILS % 0.3 % (0.0-1.0); HEMATOCRIT 27.6 % (38.2-49.6); HEMOGLOBIN 8.3 g/dL (14.0-18.0); LYMPHOCYTES # (AUTO) 0.5 (1.0-3.2); LYMPHOCYTES % 1.6 % (18.0-39.1); MEAN CORPUSCULAR HEMOGLOBIN 27.3 pg (28-32); MEAN CORPUSCULAR HGB CONC 30.1 g/dL (31-35); MEAN CORPUSCULAR VOLUME 90.8 fL (81-99); MONOCYTES # (AUTO) 0.6 (0.2-0.8); MONOCYTES % 2.2 % (4.4-11.3); NEUTROPHILS # (AUTO) 26.8 (2.1-6.9); NEUTROPHILS % 92.8 % (38.7-80.0); PLATELET COUNT 90 x10e3/uL (140-360); RED BLOOD COUNT 3.04 x10e6/uL (4.3-5.7); RED CELL DISTRIBUTION WIDTH 19.5 % (11.7-14.4)
[2022-06-09 05:34] LABS: ALBUMIN 1.4 g/dL (3.5-5.0); ALBUMIN/GLOBULIN RATIO 0.5 (0.8-2.0); ANION GAP 13.4 mmol/L (8-16); CALCIUM 7.9 mg/dL (8.4-10.2); CREATININE, SERUM 0.59 mg/dL (0.72-1.25); POTASSIUM 5.4 mmol/L (3.5-5.1)
[2022-06-09 06:27] LABS: ANISOCYTOSIS MODERATE; BAND NEUTROPHILS % (MANUAL) 1 %; LYMPHOCYTES % (MANUAL) 3 % (19-48); MONOCYTES % (MANUAL) 2 % (3.4-9.0); NEUTROPHILS % (MANUAL) 94 % (40-74); PLATELET ESTIMATE MODERATELY DECREASED; PLATELET MORPHOLOGY COMMENT NORMAL; RBC MORPHOLOGY COMMENT ABNORMAL
[2022-06-09 06:28] LABS: HYPOCHROMASIA SLIGHT; POLYCHROMASIA FEW
[2022-06-09] MEDS: BUDESONIDE 0.5MG/2 ML NEB INH SCH ×2 (07:04→20:20)
[2022-06-09] MEDS: METHYLPREDNISOLONE SOD SUCC 40 MG/ML VIAL 1ML IV SCH ×2 (08:54→17:47)
[2022-06-09] MEDS: TAMSULOSIN HCL 0.4 MG CAP PO SCH ×2 (08:55→09:03)
[2022-06-09] MEDS: DILTIAZEM HCL ER 120 MG CAP PO SCH (08:56)
[2022-06-09] MEDS: CYCLOBENZAPRINE HCL 10 MG TAB PO SCH ×2 (08:56→17:00)
[2022-06-09] MEDS: THEOPHYLLINE 200 MG TABCR PO SCH (08:57)
[2022-06-09] MEDS: BALSAM PERU/CASTOR OIL 60 GM OINT...G. TP SCH (10:40)
[2022-06-09] MEDS: FENTANYL 2000MCG/NS 250 250 ML IV PRN (11:39)
[2022-06-09] MEDS ORDERED: ETOMIDATE 2 MG/ML 10 ML INJ IV ONE (15:31)
[2022-06-09] MEDS ORDERED: MIDAZOLAM HCL 2 MG/2 ML VIAL ONE (15:31)
[2022-06-09] MEDS ORDERED: SUCCINYLCHOLINE CHLORIDE 20 MG/ML 10ML VIAL ONE (15:31)
[2022-06-09] MEDS: ENOXAPARIN SOD INJ 40 MG/0.4 ML SYR SC SCH (17:48)
[2022-06-09] MEDS: MONTELUKAST SODIUM 10 MG TAB PO SCH (22:07)
[2022-06-10] VITALS (97 sets, daily range): BP systolic 101–152; BP diastolic 52–75
[2022-06-10] MEDS: NOREPINEPHRINE 8 MG/D5W 250 ML 250 ML IV SCH (03:58)
[2022-06-10] MEDS: IPRATROPIUM BROMIDE 0.02% 2.5 ML NEB NEB SCH ×6 (04:15→23:35)
[2022-06-10] MEDS: ALBUTEROL SULF 0.083% NEB SOLN 3 ML NEB NEB SCH ×6 (04:15→23:35)
[2022-06-10] MEDS: MIDAZOLAM HCL 5MG/ML 10ML VIAL 100 ML IV PRN ×2 (04:19→11:52)
[2022-06-10 06:21] LABS: ALBUMIN 1.3 g/dL (3.5-5.0); ALBUMIN/GLOBULIN RATIO 0.4 (0.8-2.0); ANION GAP 12.5 mmol/L (8-16); CALCIUM 8.1 mg/dL (8.4-10.2); CREATININE, SERUM 0.58 mg/dL (0.72-1.25); POTASSIUM 4.5 mmol/L (3.5-5.1)
[2022-06-10 06:40] LABS: BASOPHILS % 0.2 % (0.0-1.0); HEMOGLOBIN 7.1 g/dL (14.0-18.0); LYMPHOCYTES # (AUTO) 0.2 (1.0-3.2); LYMPHOCYTES % 1.4 % (18.0-39.1); MEAN CORPUSCULAR HEMOGLOBIN 27.4 pg (28-32); MEAN CORPUSCULAR HGB CONC 30.2 g/dL (31-35); MEAN CORPUSCULAR VOLUME 90.7 fL (81-99); MONOCYTES # (AUTO) 0.6 (0.2-0.8); MONOCYTES % 3.8 % (4.4-11.3); NEUTROPHILS # (AUTO) 15.1 (2.1-6.9); NEUTROPHILS % 93.5 % (38.7-80.0); PLATELET COUNT 100 x10e3/uL (140-360); RED BLOOD COUNT 2.59 x10e6/uL (4.3-5.7); RED CELL DISTRIBUTION WIDTH 19.5 % (11.7-14.4)
[2022-06-10 06:43] LABS: HEMATOCRIT 23.5 % (38.2-49.6)
[2022-06-10] MEDS: BUDESONIDE 0.5MG/2 ML NEB INH SCH ×2 (07:23→19:40)
[2022-06-10 08:04] LABS: ABG HCO3 36 mmol/L (22-26); ABG PCO2 52 mmHg (35-45); ABG PH 7.45 (7.35-7.45); ABG PO2 159 mmHg (80-105); ABG TCO2 38
[2022-06-10] MEDS: METHYLPREDNISOLONE SOD SUCC 40 MG/ML VIAL 1ML IV SCH ×2 (08:47→17:47)
[2022-06-10] MEDS: FENTANYL 2000MCG/NS 250 250 ML IV PRN (08:48)
[2022-06-10] MEDS: DILTIAZEM HCL ER 120 MG CAP PO SCH (08:49)
[2022-06-10] MEDS: THEOPHYLLINE 200 MG TABCR PO SCH (08:49)
[2022-06-10] MEDS: CYCLOBENZAPRINE HCL 10 MG TAB PO SCH (08:49)
[2022-06-10] MEDS: TAMSULOSIN HCL 0.4 MG CAP PO SCH ×2 (08:49→17:00)
[2022-06-10] MEDS: BALSAM PERU/CASTOR OIL 60 GM OINT...G. TP SCH (08:50)
[2022-06-10] MEDS: VASOPRESSIN 60 UNIT in DEXTROSE 5% 50ML 57 ML IV SCH (11:30)
[2022-06-10] MEDS ORDERED: MIDAZOLAM HCL 5MG/ML 10ML VIAL 0 ML IV ONE (11:40)
[2022-06-10] MEDS ORDERED: SODIUM CHLORIDE 0.9% 250ML 250 ML IV ONE (15:00)
[2022-06-10] MEDS ORDERED: FUROSEMIDE INJ 10 MG/ML 2 ML VIAL IV ONE (16:00)
[2022-06-10] MEDS: ENOXAPARIN SOD INJ 40 MG/0.4 ML SYR SC SCH (17:47)
[2022-06-10] MEDS: MONTELUKAST SODIUM 10 MG TAB PO SCH (20:08)
[2022-06-10] MEDS ORDERED: SODIUM CHLORIDE 0.9% 250ML 250 ML ONE (20:59)
[2022-06-11] VITALS (77 sets, daily range): BP systolic 93–157; BP diastolic 57–78
[2022-06-11] MEDS: ALBUTEROL SULF 0.083% NEB SOLN 3 ML NEB NEB SCH ×6 (03:45→22:00)
[2022-06-11] MEDS: IPRATROPIUM BROMIDE 0.02% 2.5 ML NEB NEB SCH ×6 (03:45→22:00)
[2022-06-11] MEDS: MIDAZOLAM HCL 5MG/ML 10ML VIAL 100 ML IV PRN (03:59)
[2022-06-11] MEDS: FENTANYL 2000MCG/NS 250 250 ML IV PRN (04:50)
[2022-06-11 05:16] LABS: BASOPHILS % 0.1 % (0.0-1.0); HEMATOCRIT 26.3 % (38.2-49.6); LYMPHOCYTES # (AUTO) 0.2 (1.0-3.2); LYMPHOCYTES % 1.3 % (18.0-39.1); MEAN CORPUSCULAR HEMOGLOBIN 27.9 pg (28-32); MEAN CORPUSCULAR HGB CONC 30.4 g/dL (31-35); MEAN CORPUSCULAR VOLUME 91.6 fL (81-99); MONOCYTES # (AUTO) 0.4 (0.2-0.8); MONOCYTES % 3.2 % (4.4-11.3); NEUTROPHILS # (AUTO) 11.4 (2.1-6.9); NEUTROPHILS % 94.6 % (38.7-80.0); PLATELET COUNT 92 x10e3/uL (140-360); RED BLOOD COUNT 2.87 x10e6/uL (4.3-5.7); RED CELL DISTRIBUTION WIDTH 18.2 % (11.7-14.4)
[2022-06-11 05:46] LABS: ALBUMIN 1.3 g/dL (3.5-5.0); ALBUMIN/GLOBULIN RATIO 0.4 (0.8-2.0); ANION GAP 13.1 mmol/L (8-16); CALCIUM 7.9 mg/dL (8.4-10.2); CREATININE, SERUM 0.45 mg/dL (0.72-1.25); POTASSIUM 4.1 mmol/L (3.5-5.1)
[2022-06-11] MEDS: BUDESONIDE 0.5MG/2 ML NEB INH SCH ×2 (07:05→19:40)
[2022-06-11] MEDS: TAMSULOSIN HCL 0.4 MG CAP PO SCH ×2 (09:52→17:18)
[2022-06-11] MEDS: THEOPHYLLINE 200 MG TABCR PO SCH (09:52)
[2022-06-11] MEDS: METHYLPREDNISOLONE SOD SUCC 40 MG/ML VIAL 1ML IV SCH ×2 (09:52→17:18)
[2022-06-11] MEDS ORDERED: ACETAMINOPHEN 325 MG TAB PO PRN (10:00)
[2022-06-11 11:35] LABS: ABG HCO3 39 mmol/L (22-26); ABG PCO2 48 mmHg (35-45); ABG PH 7.53 (7.35-7.45); ABG PO2 123 mmHg (80-105); ABG TCO2 41
[2022-06-11] MEDS: ENOXAPARIN SOD INJ 40 MG/0.4 ML SYR SC SCH (17:18)
[2022-06-11] MEDS ORDERED: ACETAZOLAMIDE 250 MG TAB PO ONE (18:00)
[2022-06-11] MEDS: MONTELUKAST SODIUM 10 MG TAB PO SCH (21:03)
[2022-06-12] VITALS (59 sets, daily range): BP systolic 104–150; BP diastolic 60–86
[2022-06-12] MEDS: ALBUTEROL SULF 0.083% NEB SOLN 3 ML NEB NEB SCH ×5 (02:32→19:20)
[2022-06-12] MEDS: IPRATROPIUM BROMIDE 0.02% 2.5 ML NEB NEB SCH ×5 (02:32→19:20)
[2022-06-12 05:38] LABS: BASOPHILS % 0.1 % (0.0-1.0); HEMATOCRIT 32.9 % (38.2-49.6); LYMPHOCYTES # (AUTO) 0.4 (1.0-3.2); LYMPHOCYTES % 2.5 % (18.0-39.1); MEAN CORPUSCULAR HEMOGLOBIN 28.8 pg (28-32); MEAN CORPUSCULAR HGB CONC 30.4 g/dL (31-35); MEAN CORPUSCULAR VOLUME 94.8 fL (81-99); MONOCYTES # (AUTO) 0.8 (0.2-0.8); MONOCYTES % 5.3 % (4.4-11.3); NEUTROPHILS # (AUTO) 13.1 (2.1-6.9); NEUTROPHILS % 91.5 % (38.7-80.0); PLATELET COUNT 115 x10e3/uL (140-360); RED BLOOD COUNT 3.47 x10e6/uL (4.3-5.7); RED CELL DISTRIBUTION WIDTH 19.1 % (11.7-14.4)
[2022-06-12 05:57] LABS: ALBUMIN 1.8 g/dL (3.5-5.0); ALBUMIN/GLOBULIN RATIO 0.5 (0.8-2.0); ANION GAP 11.1 mmol/L (8-16); CALCIUM 9.1 mg/dL (8.4-10.2); CREATININE, SERUM 0.54 mg/dL (0.72-1.25); POTASSIUM 5.1 mmol/L (3.5-5.1)
[2022-06-12] MEDS: BUDESONIDE 0.5MG/2 ML NEB INH SCH ×2 (07:30→19:20)
[2022-06-12] MEDS ORDERED: MIDAZOLAM HCL 2 MG/2 ML VIAL IV STA (07:31)
[2022-06-12] MEDS ORDERED: MIDAZOLAM HCL 2 MG/2 ML VIAL ONE (07:44)
[2022-06-12] MEDS: FENTANYL 2000MCG/NS 250 250 ML IV PRN (07:51)
[2022-06-12] MEDS: THEOPHYLLINE 200 MG TABCR PO SCH (08:31)
[2022-06-12] MEDS: METHYLPREDNISOLONE SOD SUCC 40 MG/ML VIAL 1ML IV SCH (08:31)
[2022-06-12] MEDS: TAMSULOSIN HCL 0.4 MG CAP PO SCH ×2 (08:32→16:14)
[2022-06-12] MEDS ORDERED: MIDAZOLAM HCL 2 MG/2 ML VIAL IV PRN (08:45)
[2022-06-12] MEDS: DEXTROSE 5%/0.9% SOD CHL 1,000 ML IV SCH ×2 (09:23→20:46)
[2022-06-12 09:43] LABS: LYMPHOCYTES % (MANUAL) 3 % (19-48); MONOCYTES % (MANUAL) 6 % (3.4-9.0); NEUTROPHILS % (MANUAL) 91 % (40-74); PLATELET ESTIMATE SLIGHTLY DECREASED; PLATELET MORPHOLOGY COMMENT NORMAL; RBC MORPHOLOGY COMMENT NORMAL
[2022-06-12] MEDS: ENOXAPARIN SOD INJ 40 MG/0.4 ML SYR SC SCH (16:14)
[2022-06-12] MEDS: MONTELUKAST SODIUM 10 MG TAB PO SCH (20:44)
[2022-06-13] VITALS (23 sets, daily range): BP systolic 129–174; BP diastolic 65–87
[2022-06-13] MEDS: ALBUTEROL SULF 0.083% NEB SOLN 3 ML NEB NEB SCH ×7 (03:40→23:00)
[2022-06-13] MEDS: IPRATROPIUM BROMIDE 0.02% 2.5 ML NEB NEB SCH ×7 (03:40→23:00)
[2022-06-13 06:34] LABS: BASOPHILS % 0.2 % (0.0-1.0); EOSINOPHILS % 0.1 % (0.0-6.0); HEMATOCRIT 29.1 % (38.2-49.6); HEMOGLOBIN 8.6 g/dL (14.0-18.0); LYMPHOCYTES # (AUTO) 0.3 (1.0-3.2); LYMPHOCYTES % 2.9 % (18.0-39.1); MEAN CORPUSCULAR HEMOGLOBIN 27.9 pg (28-32); MEAN CORPUSCULAR HGB CONC 29.6 g/dL (31-35); MEAN CORPUSCULAR VOLUME 94.5 fL (81-99); MONOCYTES # (AUTO) 0.3 (0.2-0.8); MONOCYTES % 2.9 % (4.4-11.3); NEUTROPHILS # (AUTO) 8.1 (2.1-6.9); NEUTROPHILS % 93.3 % (38.7-80.0); PLATELET COUNT 75 x10e3/uL (140-360); RED BLOOD COUNT 3.08 x10e6/uL (4.3-5.7); RED CELL DISTRIBUTION WIDTH 18.6 % (11.7-14.4)
[2022-06-13 07:02] LABS: ANION GAP 10.1 mmol/L (8-16); CALCIUM 8.1 mg/dL (8.4-10.2); CREATININE, SERUM 0.39 mg/dL (0.72-1.25); POTASSIUM 4.1 mmol/L (3.5-5.1)
[2022-06-13] MEDS ORDERED: METHYLPREDNISOLONE SOD SUCC 40 MG/ML VIAL 1ML IV SCH (07:30)
[2022-06-13] MEDS: BUDESONIDE 0.5MG/2 ML NEB INH SCH ×2 (07:32→18:45)
[2022-06-13] MEDS: THEOPHYLLINE 200 MG TABCR PO SCH (07:39)
[2022-06-13 07:41] LABS: ANISOCYTOSIS MODERATE; HYPOCHROMASIA SLIGHT; LYMPHOCYTES % (MANUAL) 2 % (19-48); MONOCYTES % (MANUAL) 3 % (3.4-9.0); NEUTROPHILS % (MANUAL) 95 % (40-74); PLATELET ESTIMATE MODERATELY DECREASED; PLATELET MORPHOLOGY COMMENT NORMAL; RBC MORPHOLOGY COMMENT ABNORMAL
[2022-06-13] MEDS: TAMSULOSIN HCL 0.4 MG CAP PO SCH ×2 (07:50→17:00)
[2022-06-13] MEDS: DEXTROSE 5%/0.9% SOD CHL 1,000 ML IV SCH (12:20)
[2022-06-13 13:09] LABS: ABG HCO3 34 mmol/L (22-26); ABG PCO2 41 mmHg (35-45); ABG PH 7.53 (7.35-7.45); ABG PO2 156 mmHg (80-105); ABG TCO2 35
[2022-06-13] MEDS ORDERED: ETOMIDATE 2 MG/ML 10 ML INJ IV ONE (13:29)
[2022-06-13] MEDS ORDERED: SUCCINYLCHOLINE CHLORIDE 20 MG/ML 10ML VIAL ONE (13:29)
[2022-06-13] MEDS ORDERED: DEXAMETHASONE SOD PHOS INJ 4 MG/ML SDV IV ONE (14:30)
[2022-06-13 14:50] LABS: % IRON SATURATION 11 % (15-50); IRON 18 ug/dL (65-175); TOTAL IRON BINDING CAPACITY 160 ug/dL (261-478); TRANSFERRIN 114 mg/dL (174-364)
[2022-06-13 16:49] LABS: ABG HCO3 35 mmol/L (22-26); ABG PCO2 51 mmHg (35-45); ABG PH 7.44 (7.35-7.45); ABG PO2 111 mmHg (80-105); ABG TCO2 36
[2022-06-13] MEDS ORDERED: IRON SUCROSE 100 MG in SODIUM CHLORIDE 0.9% 100 ML IV SCH (17:00)
[2022-06-13] MEDS: ENOXAPARIN SOD INJ 40 MG/0.4 ML SYR SC SCH (17:28)
[2022-06-13 19:51] LABS: ABG HCO3 30 mmol/L (22-26); ABG PCO2 48 mmHg (35-45); ABG PO2 65 mmHg (80-105); ABG TCO2 31
[2022-06-13] MEDS: MIDAZOLAM HCL 5MG/ML 10ML VIAL 100 ML IV PRN (19:55)
[2022-06-13] MEDS: MONTELUKAST SODIUM 10 MG TAB PO SCH (20:44)
[2022-06-14] VITALS (9 sets, daily range): BP systolic 109–150; BP diastolic 75–114
[2022-06-14] MEDS: IPRATROPIUM BROMIDE 0.02% 2.5 ML NEB NEB SCH ×4 (02:55→13:58)
[2022-06-14] MEDS: ALBUTEROL SULF 0.083% NEB SOLN 3 ML NEB NEB SCH ×4 (02:55→13:58)
[2022-06-14] MEDS: DEXTROSE 5%/0.9% SOD CHL 1,000 ML IV SCH (03:53)
[2022-06-14 06:33] LABS: BASOPHILS % 0.3 % (0.0-1.0); LYMPHOCYTES # (AUTO) 0.3 (1.0-3.2); LYMPHOCYTES % 2.7 % (18.0-39.1); MEAN CORPUSCULAR HEMOGLOBIN 28.3 pg (28-32); MEAN CORPUSCULAR HGB CONC 30.5 g/dL (31-35); MEAN CORPUSCULAR VOLUME 92.8 fL (81-99); MONOCYTES # (AUTO) 0.2 (0.2-0.8); MONOCYTES % 2.3 % (4.4-11.3); NEUTROPHILS # (AUTO) 8.7 (2.1-6.9); NEUTROPHILS % 93.3 % (38.7-80.0); RED CELL DISTRIBUTION WIDTH 18.6 % (11.7-14.4)
[2022-06-14 06:52] LABS: ANION GAP 11.8 mmol/L (8-16); CREATININE, SERUM 0.35 mg/dL (0.72-1.25); POTASSIUM 3.8 mmol/L (3.5-5.1)
[2022-06-14 06:59] LABS: HEMATOCRIT 27.2 % (38.2-49.6); HEMOGLOBIN 8.3 g/dL (14.0-18.0); PLATELET COUNT 66 x10e3/uL (140-360)
[2022-06-14] MEDS: BUDESONIDE 0.5MG/2 ML NEB INH SCH (06:59)
[2022-06-14] MEDS ORDERED: METHYLPREDNISOLONE SOD SUCC 40 MG/ML VIAL 1ML IV SCH (08:00)
[2022-06-14 08:15] LABS: LYMPHOCYTES % (MANUAL) 5 % (19-48); MONOCYTES % (MANUAL) 1 % (3.4-9.0); NEUTROPHILS % (MANUAL) 94 % (40-74)
[2022-06-14 08:16] LABS: PLATELET ESTIMATE MODERATELY DECREASED; PLATELET MORPHOLOGY COMMENT NORMAL; RBC MORPHOLOGY COMMENT NORMAL
[2022-06-14] MEDS: TAMSULOSIN HCL 0.4 MG CAP PO SCH (09:18)
[2022-06-14] MEDS: THEOPHYLLINE 200 MG TABCR PO SCH (09:18)
[2022-06-14] MEDS: MIDAZOLAM HCL 5MG/ML 10ML VIAL 100 ML IV PRN (10:00)
[2022-06-14] MEDS ORDERED: DEXMEDETOMIDINE IV ONE (10:01)
[2022-06-14] MEDS ORDERED: [UNRECOGNIZED DRUG - OTHER] IV ONE (10:01)
[2022-06-14 10:28] LABS: ABG PCO2 41 mmHg (35-45)
[2022-06-14 10:29] LABS: ABG HCO3 32 mmol/L (22-26); ABG PO2 27 mmHg (80-105); ABG TCO2 33
[2022-06-14] MEDS ORDERED: FENTANYL CITRATE/PF 100MCG/2 ML INJ IV PRN (10:45)
[2022-06-14] MEDS ORDERED: FENTANYL 2000MCG/NS 250 250 ML IV PRN (11:00)
[2022-06-14] MEDS ORDERED: ACETYLCYSTEINE 200 MG/ML 4ML VIAL INH SCH (13:00)
[2022-06-15] MEDS ORDERED: METHYLPREDNISOLONE SOD SUCC 40 MG/ML VIAL 1ML IV SCH (07:30)
== END 2022-06-14 15:10 | disposition hospice, inpatient (51) | DRG 870 ==
LOC: ER 12:34 → ERHOLD 14:10 → MED/SURG2 16:12 → OBSVTOIN 05-19 09:20 → ICU 06-01 09:38 → IMCU 06-07 21:45 → ICU 06-08 14:30
PROVIDERS: ADMIT Internal Medicine; ATTEND Internal Medicine
PROC: 0DD58ZX Extraction of Esophagus, Via Natural or Artificial Opening Endoscopic, Diagnostic (ICD-10-PCS; 2022-05-22)
PROC: 0DB78ZX Excision of Stomach, Pylorus, Via Natural or Artificial Opening Endoscopic, Diagnostic (ICD-10-PCS; 2022-05-22)
PROC: 0DH67UZ Insertion of Feeding Device into Stomach, Via Natural or Artificial Opening (ICD-10-PCS; 2022-06-06)
PROC: 3E0G76Z Introduction of Nutritional Substance into Upper GI, Via Natural or Artificial Opening (ICD-10-PCS; 2022-06-06)
PROC: 02HV33Z Insertion of Infusion Device into Superior Vena Cava, Percutaneous Approach (ICD-10-PCS; principal; 2022-06-08)
PROC: 5A1955Z Respiratory Ventilation, Greater than 96 Consecutive Hours (ICD-10-PCS; 2022-06-08)
PROC: 0BH17EZ Insertion of Endotracheal Airway into Trachea, Via Natural or Artificial Opening (ICD-10-PCS; 2022-06-08)
PROC: 3E033XZ Introduction of Vasopressor into Peripheral Vein, Percutaneous Approach (ICD-10-PCS; 2022-06-08)
PROC: 0W9930Z Drainage of Right Pleural Cavity with Drainage Device, Percutaneous Approach (ICD-10-PCS; 2022-06-12)
DX: A41.9 Sepsis, unspecified organism (principal); E43 Unspecified severe protein-calorie malnutrition; J96.21 Acute and chronic respiratory failure with hypoxia; J96.22 Acute and chronic respiratory failure with hypercapnia; R65.21 Severe sepsis with septic shock; J69.0 Pneumonitis due to inhalation of food and vomit; I50.32 Chronic diastolic (congestive) heart failure; Z68.1 Body mass index [BMI] 19.9 or less, adult; N39.0 Urinary tract infection, site not specified; Z16.12 Extended spectrum beta lactamase (ESBL) resistance; R64 Cachexia; B37.81 Candidal esophagitis; J93.9 Pneumothorax, unspecified; J43.9 Emphysema, unspecified; Z20.822 Contact with and (suspected) exposure to COVID-19; I11.0 Hypertensive heart disease with heart failure; I48.0 Paroxysmal atrial fibrillation; Z79.01 Long term (current) use of anticoagulants; N40.1 Benign prostatic hyperplasia with lower urinary tract symptoms; R33.8 Other retention of urine; D69.59 Other secondary thrombocytopenia; E77.8 Other disorders of glycoprotein metabolism; E88.09 Other disorders of plasma-protein metabolism, not elsewhere classified; B96.20 Unspecified Escherichia coli [E. coli] as the cause of diseases classified elsewhere; L89.152 Pressure ulcer of sacral region, stage 2; D50.9 Iron deficiency anemia, unspecified; E87.6 Hypokalemia; K21.9 Gastro-esophageal reflux disease without esophagitis; Z66 Do not resuscitate; F40.240 Claustrophobia; E87.5 Hyperkalemia; Z51.5 Encounter for palliative care; Z87.891 Personal history of nicotine dependence; Z99.81 Dependence on supplemental oxygen; Z79.51 Long term (current) use of inhaled steroids; Z79.82 Long term (current) use of aspirin
CPT/HCPCS: 31500; 36415; 36600; 43239; 71045; 71250; 72146; 72148; 74018; 74176; 74230; 78227; 80048; 80053; 80198; 82270; 82607; 82746; 82805; 82948; 83540; 83735; 83880; 84132; 84466; 85025; 85045; 86850; 86900; 86920; 87040; 87070; 87086; 87106; 87186; 87205; 88112; 88300; 88304; 88305; 88312; 88342; 93005; 93306; 94003; 94640; 94660; 94664; 94799; 99252; 99284; A9537; G0378; J0330; J0500; J0696; J1100; J1450; J1650; J1756; J1940; J2060; J2185; J2250; J2370; J2543; J2920; J2930; J3480; J7030; J7040; J7042; J7050; J7070; J7121; J7799; P9016; Q9967

== ENCOUNTER 2022-06-14 15:11 | Inpatient (IN) | payer OTHER ==
[~2022-06-14] VITALS: Ht 177.8 cm; Wt 45.0 kg
[~2022-06-14 15:11] MED LIST changes: +FLONASE ALLERG9.9 ML INH; +FUROSEMIDE40 MG PO
[2022-06-14] MEDS ORDERED: SODIUM CHLORIDE FLUSH 10 ML SYR INJ PRN (15:45)
[2022-06-14] MEDS ORDERED: LORAZEPAM INJ 2 MG/ML VIAL IV PRN (15:45)
[2022-06-14] MEDS ORDERED: ACETAMINOPHEN 650 MG SUPP PR PRN (15:45)
[2022-06-14] MEDS ORDERED: Morphine 4mg INJECTION 4 MG/ML INJ IV ONE (15:45)
[2022-06-14] MEDS ORDERED: Morphine 4mg INJECTION 4 MG/ML INJ IV SCH ×2 (15:45→21:00)
[2022-06-14] MEDS ORDERED: SCOPOLAMINE 1 MG PATCH TD PRN (15:45)
[2022-06-14] MEDS ORDERED: Morphine 2mg Syringe 2 MG/ML SYR IV PRN (15:45)
[2022-06-14] MEDS ORDERED: ONDANSETRON HCL INJ 2MG/ML 2ML 2 MG/ML VIAL IV PRN (15:45)
[2022-06-14] MEDS ORDERED: HALOPERIDOL LACTATE 5 MG/ML VIAL IV PRN (15:45)
[2022-06-14] MEDS ORDERED: DIPHENHYDRAMINE HCL INJ 50 MG/ML VIAL IV PRN (15:45)
[2022-06-14 16:00] VITALS: BP 111/61
[2022-06-14] MEDS ORDERED: LORAZEPAM INJ 2 MG/ML VIAL IV ONE (16:00)
[2022-06-14 17:00] VITALS: BP 105/53
[2022-06-14 17:33] VITALS: BP 43/32
[2022-06-14] MEDS ORDERED: LORAZEPAM INJ 2 MG/ML VIAL IV SCH (21:00)
== END 2022-06-14 20:18 | disposition expired | DRG 193 ==
LOC: ICU 15:11
PROVIDERS: ADMIT Internal Medicine; ATTEND Internal Medicine
DX: J18.9 Pneumonia, unspecified organism (principal); J96.90 Respiratory failure, unspecified, unspecified whether with hypoxia or hypercapnia; G93.40 Encephalopathy, unspecified; Z51.5 Encounter for palliative care
CPT/HCPCS: J2060; J2270